=== PATIENT | female | born 1950 | race Caucasian/White ===

== ENCOUNTER → 2016-12-26 | Outpatient (CLI) | payer MEDICARE, OTHER | END | disposition home or self-care (01) | LOC: GMAB 16:48 | PROVIDERS: ATTEND Family Medicine | DX: I10 Essential (primary) hypertension (principal); R30.0 Dysuria ==

== ENCOUNTER → 2016-12-31 | Outpatient (CLI) | payer MEDICARE, OTHER ==
--- NOTE | 2016-12-31 13:43 | MAM ---
History: Well woman exam. Date of exam: 12/31/2016 Services provided: Bilateral full field digital screening mammography. CAD, the images were reviewed with R2 computer aided detection. FINDINGS: Glandular tissue is near completely fatty involuted. No prior study is currently available for review. Technologist indicates images provided are best possible as the patient does have some physical limitation. A 4 to 5 mm nodular asymmetry is present in the left breast approximately 17 cm from the nipple. Mammographically the borders are indistinct but may be secondary to incomplete compression in this pendulous breast. Additional mammographic views would be of benefit although may not be possible given indicated problems. Directed ultrasound is otherwise therefore recommended.. IMPRESSION: Incomplete exam Recommendation: Directed ultrasound left breast 2-3 o'clock sonographically approximately 6 to 8 cm from the nipple. BIRAD CATEGORY: 0 INCOMPLETE Electronically signed by: Dominga Pollard MD 12/31/2016 1:43 PM CDT Workstation: [id number]
== END | disposition home or self-care (01) ==
LOC: MAMMO 10:43
PROVIDERS: ATTEND Family Medicine
DX: Z12.31 Encounter for screening mammogram for malignant neoplasm of breast (principal)

== ENCOUNTER → 2017-04-22 | Outpatient (CLI) | payer MEDICARE, OTHER ==
--- NOTE | 2017-04-22 17:14 | MAM ---
EXAM DESCRIPTION: 3D Diagnostic, Left CLINICAL HISTORY: 66 yearsFemaleABNORMAL MAMMO no complaints. Gentle organ cancer history. Hysterectomy. No HRT. No family history of breast cancer. COMPARISON: 2-D digital screening study 12/31/2016. Targeted left breast ultrasound on this visit. Report from prior examination also reviewed. TECHNIQUE: Left CC , LM, projection full-field images, 3-D tomosynthesis digital mammographic technique. Digital 2-D full-field left MLO image. Also left synthesized CC , and LM full-field images. CAD not utilized. FINDINGS: The breast parenchymal density pattern is: Scattered areas of fibroglandular density. No skin thickening or nipple retraction scattered solitary microcalcifications. Focal asymmetry in the upper outer quadrant of the posterior third of the left breast approximately 200 clock position and approximately 15 cm from the nipple. Approximately 5 cm from the skin surface. No focal, stellate mass or density, , and no suspicious microcalcifications. ULTRASOUND: Scanning in the region of the 200 clock sector of the left breast posterior third 15 cm from the nipple. Homogeneous fatty echotexture. No discrete solid mass or cyst. No parenchymal edema or large calcifications. No abnormal Doppler color flow. Normal vessel flow. IMPRESSION: BI-RADS CATEGORY: 2 - BENIGN FINDINGS. FOLLOW UP: Return to routine digital bilateral screening, December 2017. The findings and the follow-up plan were reviewed in person with the patient after the examination. Written communication explaining the IMPRESSION and follow-up, will be mailed to the patient and referring health care provider. According to the [employer], yearly mammograms are recommended starting at age 40 and continuing as long as a woman is in good health. Any breast change noted on a breast self-exam should be reported promptly to the patient's healthcare provider. Breast MRI is recommended for women with an approximately 20-25% or greater lifetime risk of breast cancer, including women with a strong family history of breast or ovarian cancer and women who have been treated for Hodgkin's disease. A negative mammographic report should not delay tissue diagnosis in patients with significant clinical history or physical findings. Extremely dense breast tissue limits the sensitivity of digital mammography. Electronically signed by: Juan A Fu MD 04/22/2017 5:13 PM CDT
--- NOTE | 2017-04-22 17:14 | US ---
EXAM DESCRIPTION: Breast,Left CLINICAL HISTORY: 66 yearsFemaleABNORMAL MAMMO COMPARISON: Digital 2-D and 3-D tomosynthesis left breast on this visit. 2-D digital screening mammographic examination 12/31/2016. TECHNIQUE: Transcutaneous scanning of the upper outer quadrant of the posterior third of the left breast utilizing two-dimensional and Doppler modes. Scanning performed by the certified travel counselor only. FINDINGS: Scanning in the region of the 200 clock sector of the left breast posterior third 15 cm from the nipple. Homogeneous fatty echotexture. No discrete solid mass or cyst. No parenchymal edema or large calcifications. No abnormal Doppler color flow. Normal vessel flow. IMPRESSION: 1. Bi-Rads Category 2: Benign. 2. Please refer to digital left breast 3-D tomosynthesis and 2-D diagnostic examination and report on this visit. The findings and the follow-up plan were reviewed in person with the patient after the examination. Written communication regarding the impression and follow-up will be mailed to the patient and referring health care provider. Electronically signed by: Juan A Fu MD 04/22/2017 5:13 PM CDT
== END ==
LOC: US 09:00
PROVIDERS: ATTEND Family Medicine
DX: R92.8 Other abnormal and inconclusive findings on diagnostic imaging of breast (principal)
CPT/HCPCS: 76641; G0206; G0279

== ENCOUNTER → 2017-07-31 | Outpatient (CLI) | payer MEDICARE, OTHER | END | disposition home or self-care (01) | LOC: GMAB 17:09 | PROVIDERS: ATTEND Family Medicine | DX: D53.9 Nutritional anemia, unspecified (principal); E53.8 Deficiency of other specified B group vitamins; I10 Essential (primary) hypertension; E55.9 Vitamin D deficiency, unspecified ==

== ENCOUNTER 2017-08-07 13:54 | Inpatient (IN) | payer MEDICARE, OTHER ==
--- NOTE | 2017-08-07 15:36 | ED.PDOC ---
History of Present Illness - General Chief Complaint: Neuro Symptoms/Deficits Stated Complaint: altered mental status Time Seen by Provider: 08/07/17 15:36 Source: family - sister in law Exam Limitations: no limitations - History of Present Illness Initial Comments: Lucia Byrd 67 y/o female brought by EMS after she was found to disoriented on and off the last 2 weeks does not know where she at ,refused to get up from bed,had fallen 3 x the last 2 days.She had visual hallucinations in the past seeing bugs on the floor and depression was placed on seroquel and effexor but recently seroquel was discontinued afte patient becoming more disoriented and also falling ,getting weak. Timing/Duration: waxing and waning, other - 2 weeks Severity: moderate Episode Description: see hpi Improving Factors: nothing Worsening Factors: nothing Associated Symptoms: trouble walking - weak Allergies/Adverse Reactions: Allergies Penicillin G Allergy (Verified 07/25/15 02:19) Home Medications: Ambulatory Orders Aspirin [Baby Aspirin] 81 mg PO QD 06/20/14 Calcium Carbonate-Vitamin D [Calcium 600+D 600-400 mg-Unit] 1 tab PO BID Lisinopril 10 mg PO DAILY 06/20/14 SITagliptin [Januvia] 50 mg PO DAILY 07/25/15 Atorvastatin Calcium [Lipitor] 10 mg PO DAILY 01/08/16 Cetirizine HCl [ZyrTEC] 10 mg PO DAILY 01/08/16 Oxybutynin Chloride 5 mg PO DAILY 01/08/16 Venlafaxine HCl [Effexor Xr] 150 mg PO BID 01/08/16 Alendronate Sodium [Fosamax] 70 mg PO WKLY 08/07/17 Methylcellulose (Laxative) [Citrucel] 500 mg PO DAILY 08/07/17 Nystatin Powder 15 gm TOP BID PRN 08/07/17 Review of Systems - Review of Systems Constitutional: States: weakness EENTM: States: no symptoms reported Respiratory: States: no symptoms reported Cardiology: States: no symptoms reported Gastrointestinal/Abdominal: States: no symptoms reported Genitourinary: States: other - incontinence Musculoskeletal: States: no symptoms reported Skin: States: see HPI Neurological: States: see HPI Endocrine: States: no symptoms reported Past Medical History (General) - Patient Medical History Hx Seizures: No Hx Stroke: No Hx Dementia: No Hx Asthma: No Hx of COPD: No Hx Cardiac Disorders: No Hx Congestive Heart Failure: No Hx Pacemaker: No Hx Hypertension: Yes Hx Thyroid Disease: No Hx Diabetes: Yes Hx Gastroesophageal Reflux: No Hx Renal Disease: No Hx Cancer: Yes - uterine Hx of HIV: No Hx Hepatitis C: No Hx MRSA: Yes - 2016 Face MRSA Source:: Wound Surgical History: cholecystectomy, other - colonoscopy - Vaccination History Hx Tetanus, Diphtheria Vaccination: No Hx Influenza Vaccination: Yes Hx Pneumococcal Vaccination: Yes - Social History Hx Tobacco Use: No Hx Chewing Tobacco Use: No Hx Alcohol Use: No Hx Substance Use: No Hx Substance Use Treatment: No Hx Depression: Yes Hx Physical Abuse: No Hx Emotional Abuse: No Hx Suspected Abuse: No - Activities of Daily Living Grooming Ability: Standby Assistance Eating (Feeding) Ability: Standby Assistance Toileting Ability: Standby Assistance - Female History Patient : No Family Medical History - Family History Mother Name: Harriett Byrd Age (years): 86 Living Status: Still Living Hx Family Asthma: No Hx Family Congestive Heart Failure: No Hx Family Hypertension: Yes - Father Hx Family Stroke: No Hx Cardiac Disease: Yes - Father Hx Family Diabetes: Yes - maternal grandmother and father Hx Family Cancer: Yes - mother colon, pt uterine Hx Family;Other: Azheimers Dementia-mom Physical Exam - Physical Exam General Appearance: Alert, No apparent distress Eye Exam: bilateral normal ENT Exam: normal ENT inspection, hearing grossly normal, pharynx normal Neck: non-tender, full range of motion, supple, normal inspection, trachea midline Respiratory: chest non-tender, lungs clear Cardiovascular/Chest: regular rate, rhythm, no gallop, no murmur Peripheral Pulses: radial,right: 2+, radial,left: 2+ Gastrointestinal/Abdominal: non tender, soft, no organomegaly Back Exam: no CVA tenderness, no vertebral tenderness Extremities Exam: non-tender Mental Status: alert, disoriented x 3 - time,place, 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 Exam: normal hearing, normal speech Motor/Sensory: no motor deficit, no sensory deficit, no pronator drift Skin Exam: other - multiple excoriation skin and grade 2 sacral ulcer Progress - Progress Progress: 08/07/17 17:26 Last Vital Signs Temp 98.0 F 08/07/17 14:05 Pulse 90 08/07/17 16:00 Resp 18 08/07/17 16:00 BP 129/81 08/07/17 16:00 Pulse Ox 97 08/07/17 16:00 - Results/Orders Results/Orders: Laboratory Tests 08/07/17 08/07/17 16:06 17:29 WBC 13.1 H RBC 3.07 L Hgb 9.3 L Hct 28.4 L MCV 92.4 MCH 30.2 MCHC 32.9 L RDW 12.7 Plt Count 326 MPV 9.5 Absolute Neuts (auto) 10.00 H Absolute Lymphs (auto) 1.40 Absolute Monos (auto) 1.20 H Absolute Eos (auto) 0.50 H Absolute Basos (auto) 0.10 Neutrophils % 76.1 Lymphocytes % 10.7 L Monocytes % 8.8 Eosinophils % 3.6 Basophils % 0.8 PT 13.1 H INR 1.160 PTT (SP) 24.7 L Sodium 135 Potassium 3.2 L Chloride 93 L Carbon Dioxide 32 H Anion Gap 13.2 BUN 40 H Creatinine 3.61 H BUN/Creatinine Ratio 11.1 Random Glucose 109 H Serum Osmolality 280.4 Calcium 14.6 H* Magnesium 1.4 L Total Bilirubin 0.6 Direct Bilirubin 0.1 Indirect Bilirubin 0.5 AST 27 ALT 14 Alkaline Phosphatase 60 Creatine Kinase 146 H CK-MB (CK-2) 4.0 CK-MB (CK-2) % 2.74 Troponin I 0.02 Serum Total Protein 7.0 Albumin 3.1 L Urine Color Yellow Urine Appearance Clear Urine pH 6.5 Ur Specific [place] 1.020 Urine Protein Negative Urine Glucose (UA) Negative Urine Ketones Negative Urine Blood Negative Urine Nitrite Negative Urine Bilirubin Negative Urine Urobilinogen 0.2 Ur Leukocyte Esterase Negative Urine RBC 0-1 Urine WBC 3-5 H Ur Epithelial Cells 3-5 Amorphous Sediment 1+ Urine Bacteria Rare Urine Mucus Small - EKG/XRAY/CT EKG: Sinus, Tachy, nonspecific ST T wave Chg Comments: heart rate-100; q wave 2,avf XRAY: chest - no acute abnormalities Departure - Departure Clinical Impression: Hypercalcemia, Altered awareness, transient, Hypomagnesemia, Hypokalemia, History of diabetes mellitus Sacral ulcer Qualifiers: Non-pressure ulcer stage: unspecified non-pressure ulcer stage Qualified Code(s ): L98.429 - Non-pressure chronic ulcer of back with unspecified severity Renal failure (ARF), acute on chronic Qualifiers: Acute renal failure type: unspecified Chronic kidney disease stage: unspecified stage Qualified Code(s): N17.9 - Acute kidney failure, unspecified Anemia Qualifiers: Anemia type: unspecified type Qualified Code(s): D64.9 - Anemia, unspecified Time of Disposition: 18:20 Disposition: Admit Patient Condition: Fair Departure Forms: Patient Portal Self Enrollment Referrals: Bo Cantrell MD [Primary Care Provider] - 1-2 Weeks Home Medications: Ambulatory Orders Aspirin [Baby Aspirin] 81 mg PO QD 06/20/14 Calcium Carbonate-Vitamin D [Calcium 600+D 600-400 mg-Unit] 1 tab PO BID Lisinopril 10 mg PO DAILY 06/20/14 SITagliptin [Januvia] 50 mg PO DAILY 07/25/15 Atorvastatin Calcium [Lipitor] 10 mg PO DAILY 01/08/16 Cetirizine HCl [ZyrTEC] 10 mg PO DAILY 01/08/16 Oxybutynin Chloride 5 mg PO DAILY 01/08/16 Venlafaxine HCl [Effexor Xr] 150 mg PO BID 01/08/16 Alendronate Sodium [Fosamax] 70 mg PO WKLY 08/07/17 Methylcellulose (Laxative) [Citrucel] 500 mg PO DAILY 08/07/17 Nystatin Powder 15 gm TOP BID PRN 08/07/17 Decision To Admit - Decistion To Admit Decision to Admit Reason: Admit from ER - Discuss with Mickey Stewart ANP/ Hospitalist for admit to monitor calcium level and needs ivf hydration Decision to Admit Date: 08/07/17 Decision to Admit Time: 18:17
--- NOTE | 2017-08-07 15:56 | RAD ---
Study: Single Frontal View of the Chest. Indication:ams Comparison: January 08, 2016. Impression: Heart size normal. Left basilar atelectasis. Otherwise, lungs clear. No acute osseous abnormality. Electronically signed by: Silver Moe MD 08/07/2017 3:55 PM RN ED
--- NOTE | 2017-08-07 16:29 | CT ---
Study: CT of the Head. Indication: ams Technique: Axial CT images of the head were acquired without intravenous contrast. This exam was performed according to our departmental dose-optimization program, which includes automated exposure control, adjustment of the mA and/or kV according to patient size and/or use of iterative reconstruction technique. Comparison: None. Findings: No CT evidence of acute ischemia, acute hemorrhage, mass, mass effect, midline shift, or extra-axial fluid collection. Tiny remote right cerebellar infarct. Tiny remote appearing right thalamic lacunar infarct. Ventricles are normal in configuration without hydrocephalus. Patchy hypoattenuation of the periventricular and subcortical white matter noted. This is nonspecific but most consistent with chronic microvascular ischemic change. Global parenchymal volume loss and intracranial atherosclerosis noted as well. Paranasal sinuses are adequately aerated. Mastoid air cells are adequately aerated. Osseous structures and soft tissues are unremarkable. Impression: 1. No CT evidence of acute intracranial abnormality. If high clinical concern for acute ischemia, MRI can be performed. 2. 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 3. Senescent changes. Electronically signed by: Silver Moe MD 08/07/2017 4:28 PM [facility]
[2017-08-07] MEDS ORDERED: SODIUM CHLORIDE 0.9% 1000ML 1,000 ML IVS ONE (16:44)
[2017-08-07] MEDS ORDERED: FUROSEMIDE INJ 20 MG/2 ML VIAL IV ONE (16:47)
[2017-08-07] MEDS ORDERED: KCL 40MEQ/NS 1,000 ML IVS PRN ×2 (18:26→20:04)
[2017-08-07] MEDS ORDERED: MAGNESIUM SULFATE PREMIX 2GM 2 GM in PREMIX BAG 1 BAG IVPB ONE (18:27)
[2017-08-07] MEDS ORDERED: MAGNESIUM SULFATE PREMIX 2GM 50 ML IVPB ONE (19:10)
--- NOTE | 2017-08-07 20:26 | HP ---
SUPERVISING PHYSICIAN: Job Owen MD CHIEF COMPLAINT: Altered mental status. Hypercalcemia. HISTORY OF PRESENT ILLNESS: Ms. Byrd is a 67-year-old, female patient who resides at [facility] and was brought to the Emergency Department via EMS after she was found to have worsening disorientation on and off for the last 2 weeks. Her family member notes she does not remember where she is at times. She has refused to get out of bed and she has fallen well over 3 times in the last couple of days. She has also reported having some visual hallucinations in the last week or so as she has been seeing bugs on the floor and has a history of depression that seems to be worsening and has recently had a medication change in her antidepressant from Seroquel to Effexor as the patient has, again, been showing some disorientation and increasing weakness. The patient is followed in the clinic by Dr. Cantrell. She is currently on doxycycline for some chronic venous stasis dermatitis to her lower extremities as well as a sacral decubitus ulcer. Her laboratory studies today in the Emergency Department showed that she had a severely elevated calcium at 14.6 with an albumin at 3.1. She also had a hypokalemia and low magnesium level along with worsening renal function. CBC showed leukocytosis of 13,100, but no left shift was noted on the differential. Her family member notes that the patient has not been having significant oral intake and has been refusing to go eat or get out of bed most days. Given that she has had a significant change in her calcium level showing to be symptomatic including continued weakness, confusion and multiple falls, Dr. Hale requested the patient be admitted for further treatment and ongoing evaluation for there hypercalcemia. Prior to admission, CT of the head was completed and per radiologic interpretation of noncontrast CT, there is no evidence of acute intracranial abnormality. There was a tiny remote right cerebral and right thalamic infarct suspected with some senescent changes. The patient is now going to be admitted to the Medical/ Surgical Floor for ongoing treatment and evaluation. PAST MEDICAL HISTORY: 1. Hypertension. 2. Hyperlipidemia. 3. Anxiety/depression on Effexor with recent change in medication having been taken off Seroquel. 4. Lumbar radiculopathy. 5. Morbid obesity. 6. Type 2 diabetes on oral therapy. 7. Chronic venous stasis dermatitis, currently on doxycycline. 8. Osteoporosis on Fosamax. PAST SURGICAL HISTORY: 1. Cholecystectomy. 2. Hysterectomy. 3. Dilatation and curettage. 4. Colonoscopy. CURRENT MEDICATIONS: 1. Effexor XR 150 mg daily. 2. Doxycycline 100 mg q.12h. 3. Januvia 50 mg daily. 4. Oxybutynin chloride 5 mg daily. 5. Nystatin powder 15 gram topical b.i.d. as needed. 6. Citrucel laxative 500 mg daily. 7. Lisinopril 10 mg daily. 8. Zyrtec 10 mg daily. 9. Calcium supplement 600 Plus D 600/400 unit 1 tablet b.i.d. 10. Lipitor 10 mg daily. 11. Baby aspirin 81 mg daily. 12. Fosamax 70 mg weekly. ALLERGIES: PENICILLIN G. FAMILY HISTORY: Father is decreased of unknown cause. Mother had colon cancer. SOCIAL HISTORY: The patient is single and lives at [facility]. She has no history of cigarette smoking and drinks alcohol very frequently, typically on a social basis, beer or hard liquor. REVIEW OF SYSTEMS: CONSTITUTIONAL: Positive weakness. No reported fever or chills. General malaise. HEENT: Denies vision change although she does report some hallucinations visually. No reported earaches, sore throat, nasal congestion. RESPIRATORY: No shortness of breath, cough. CARDIOVASCULAR: No reported chest pain or palpitations. No syncopal episodes. GASTROINTESTINAL: Denies nausea or vomiting, diarrhea or constipation. GENITOURINARY: She is incontinent, but denies dysuria, hematuria or other urinary symptoms. MUSCULOSKELETAL: As noted in history of present illness, multiple falls and ongoing weakness. INTEGUMENTARY: As noted in history of present illness, multiple stasis ulcers of lower extremities with a sacral decubitus ulcer currently on treatment with doxycycline. NEUROLOGIC: As noted in history of present illness, worsening confusion, depression. No reported localizing or focalizing weakness. PHYSICAL EXAMINATION: VITAL SIGNS: Temperature 97.1. Pulse 89. Blood pressure 130/72. Respirations 16. Saturation 98% on room air. Admission weight 86.7 kg. GENERAL: On admission to the Medical/Surgical Floor, the patients appear comfortable and in no acute distress. She is well-nourished. She does appear dehydrated. She is alert. HEENT: Tympanic membranes clear bilaterally. Oropharynx is pink, mucous membranes dry. There are no lesions. NECK: Supple, nontender with full range of motion. No jugular venous distention noted. CHEST: Lungs clear to auscultation bilaterally without any rhonchi, wheezes, or rales. CARDIOVASCULAR: Regular rate and rhythm without any appreciable murmurs, gallops, or rubs. ABDOMEN: Soft, obese, nontender. Positive bowel sounds. EXTREMITIES: There is no cyanosis, clubbing or edema. There are multiple areas of excoriation at various stages of healing to both lower extremities. NEUROLOGIC: The patient is alert to self, disoriented to time and place and has a very flat affect. Cranial nerves II-XII are grossly intact as assessed. Facial features are symmetrical. Extraocular movements are within normal limits. There were no notable motor deficits, sensory deficits or any pronator drift. There is no nystagmus noted. INTEGUMENTARY: Multiple excoriations to the lower extremities in various healing stages with a grade 2 sacral ulcer. LABORATORY: CBC shows leukocytosis of 13,100, hemoglobin 9.3, hematocrit 20.4, platelet count 326,000, differential does not a current left shift. Coagulation studies showed PT 13.1, PT-T 24.7. Chemistries showed normal sodium at 135, potassium low at 3.2, carbon dioxide elevated at 32, BUN 40, creatinine 3.61, liver functions all within normal limits. Glucose 109, serum osmolality 280, calcium elevated at 14.6, albumin 3.1, alkaline phosphatase normal. CPK elevated at 146. Troponin normal at 0.02. Review of previous labs on 07/31/17 showed an iron study with a low iron of 224 with TIBC normal and iron saturation low with normal ferritin. Vitamin B12 was greater than 1500. Vitamin D total and D2, D3 were all within normal limits. Serum folate was greater than 23.4, TSH normal at 1.21 MICROBIOLOGY: MRSA surveillance culture is pending. Urine culture, straight cath, is pending. RADIOLOGY: On admission to the Emergency Department, she had a chest x-ray and per radiologic interpretation of a single view chest, heart size was normal. There was some left basilar atelectasis. Otherwise, lungs clear. No osseous abnormalities were noted. She also had a CT without contrast and per radiologic interpretation, there was no CT evidence of acute intracranial abnormality. There was note of a tiny remote right cerebral and right thalamic infarct suspected with senescent changes. ASSESSMENT: 1. Hypercalcemia, likely secondary to dehydration. 2. Dehydration secondary to poor oral intake. 3. Acute kidney failure secondary to prerenal azotemia from dehydration. 4. Leukocytosis with a sacral decubitus ulcer and possible demargination and exacerbation from hemoconcentration from dehydration. 5. Increasing muscle weakness secondary to hypercalcemia. 6. Multiple same level falls secondary to hypercalcemia and ongoing weakness. 7. Acute mental status change with increasing confusion secondary to hypercalcemia. 8. Electrolyte imbalance with hypokalemia and hypomagnesemia, likely related to worsened renal function. 9. Chronic venous stasis dermatitis to both lower legs, currently no doxycycline. 10. Stage 2 sacral decubitus ulcer. 11. Hyperlipidemia. 12. Hypertension on lisinopril. 13. Anxiety and depression on Effexor having recently been changed from Seroquel. 14. Lumbar radiculopathy. 15. Morbid obesity. 16. Type 2 diabetes on oral therapy. PLAN: The patient will be admitted to the Medical/Surgical Floor for ongoing treatment of immediate concerns for hypercalcemia. I did talk to Dr. Medina in regard to treatment of the hypercalcemia. He feels most likely it is related to severe dehydration. We have given her a liter bolus of saline and this will be continued with normal saline with 40 of potassium that will run at 125 an hour. I have ordered a Parada catheter to closely monitor her I&Os with the aggressive approach to fluid maintenance in efforts to correct the underlying hypercalcemia. In regard to the hypokalemia and hypomagnesemia, we will replace both with IV initially and repeat laboratory studies in the morning. She continues to be on doxycycline for recent treatment for the stasis dermatitis and sacral ulcer. We will closely monitor this and continue with doxycycline as previous to hospitalization. She will be on DVT prophylaxis as per protocol. She will be on insulin sliding scale per protocol. We will order a physical therapy consultation in regard to her multiple falls and ongoing weakness. We will resume her home medications as appropriate once they have been updated and verified. At this point, we will hold off on lisinopril given her renal function as well as the Fosamax. Given the findings on CT with questionable infarcts involving the right cerebral and thalamic regions, we will at some point consider MRI, but certainly at this point addressing the calcium is more appropriate and treatment plan certainly will not change with findings of MRI. This can be done in the outpatient setting with continued followup. We will plan to repeat labs in the morning. If her calcium remains elevated, I will order some additional laboratory studies including parathyroid hormone evaluation along with further treatment as needed with possible more aggressive management of the calcium levels with some Reclast and Calcitonin if available. I have cultured her urine as well and we will await those culture results, but hold off on additional antibiotics at this point because there is no evidence of a significant urinary tract infection. We will anticipate her length of stay to be at least 2 to 3 days until clinically improved and stable. Until then, we will continue to monitor the patient closely and treat appropriately. In regard to discharge planning, based on what she does clinically and with physical therapy, anticipate hopefully discharging back to [facility], but until that point, we will continue to closely monitor and treat appropriately. #[id number] [facility]
[2017-08-07] MEDS ORDERED: DEXTROSE 50% 25 GM/50 ML SYG IV PRN (20:44)
[2017-08-07] MEDS ORDERED: SODIUM CHLORIDE 0.9% (FLUSH) 10 ML SYG IV PRN (20:44)
[2017-08-07] MEDS ORDERED: ONDANSETRON INJ 4 MG/2 ML VIAL IV PRN (20:44)
[2017-08-07] MEDS ORDERED: GLUCAGON INJ 1 MG VIAL SUBCU PRN (20:44)
[2017-08-07] MEDS ORDERED: ACETAMINOPHEN 325 MG TAB PO PRN (20:44)
[2017-08-07] MEDS ORDERED: NYSTATIN POWDER 15GM BTTL TOP PRN (20:49)
--- NOTE | 2017-08-07 20:59 | PCM.CORE ---
Physician DVT/VTE - Nurse DVT Assessment & Total Each Risk Factor Represents 2 Points: Age 60-74, Malignancy (present/past) Each Risk Factor is 1 Point: Obesity (BMI >25) DVT Assessment Score: 5 - 5 or more Very High Risk Treatments: Early Ambulation *, Sequential Compression Device Pharmacological: Enoxaparin 40mg SQ Daily
[2017-08-07] MEDS ORDERED: VENLAFAXINE XR 75 MG CAP PO SCH (21:00)
[2017-08-07] MEDS ORDERED: VENLAFAXINE XR 75 MG CAP ONE (21:35)
[2017-08-07] MEDS: KCL 40MEQ/NS 1,000 ML IVS PRN (21:41)
[2017-08-07] MEDS: ASPIRIN (CHEWABLE) 81 MG TAB PO SCH (21:45)
[2017-08-07] MEDS: DOXYCYCLINE HYCLATE CAP 100 MG CAP PO SCH (21:46)
[2017-08-07] MEDS: INSULIN LISPRO 100 UNITS/ML PEN SUBCU SCH (21:46)
[2017-08-07] MEDS: IV SET AND CAP CHANGE INJ INJ SCH (21:46)
[2017-08-07] MEDS ORDERED: ENOXAPARIN SODIUM 30 MG/0.3 ML SYG SUBCU SCH (22:00)
[2017-08-07] MEDS ORDERED: DOXYCYCLINE HYCLATE CAP 100 MG CAP PO SCH (22:30)
[2017-08-08] MEDS: KCL 40MEQ/NS 1,000 ML IVS PRN ×3 (05:27→23:16)
[2017-08-08] MEDS: INSULIN LISPRO 100 UNITS/ML PEN SUBCU SCH ×4 (07:43→21:31)
[2017-08-08] MEDS: VENLAFAXINE XR 75 MG CAP PO SCH (07:49)
[2017-08-08] MEDS: DOXYCYCLINE HYCLATE CAP 100 MG CAP PO SCH ×2 (08:54→20:49)
[2017-08-08] MEDS: ATORVASTATIN 10 MG TAB PO SCH (08:54)
[2017-08-08] MEDS: OXYBUTYNIN CL 5 MG TAB PO SCH (08:55)
[2017-08-08] MEDS: ASPIRIN (CHEWABLE) 81 MG TAB PO SCH (08:55)
[2017-08-08] MEDS: CETIRIZINE HCL 10 MG TAB PO SCH (08:55)
[2017-08-08] MEDS ORDERED: MAGNESIUM SULFATE PREMIX 2GM 2 GM in PREMIX BAG 1 BAG IVPB ONE (08:57)
[2017-08-08] MEDS ORDERED: MAGNESIUM SULFATE PREMIX 2GM 50 ML IVPB ONE (10:03)
--- NOTE | 2017-08-08 14:39 | US ---
EXAM DESCRIPTION: Carotid Duplex: ULTRASOUND. CLINICAL HISTORY: multiple falls COMPARISON: CT scan of the head 08/07/2016. TECHNIQUE: Transcutaneous scanning utilizing 2-dimensional and Doppler modes to evaluate the bilateral carotid systems and vertebral arteries. Percentage of diameter of stenosis or no stenosis recorded will be based upon NASCET criteria. FINDINGS: Peak systolic/end diastolic (CM-Sec) CCA Right 50/15 Left 41/13. ICA Right proximal 28/7, distal 47/16. Left proximal 31/8, Distal 35/12. Vertebral Right 26/0 Left 32/12. ECA (PS Only) Right 71 left 54. ICA/CCA peak systolic ratio: Right 0.9 Left 0.9 ICA/CCA end diastolic ratio: Right 1.0 Left 0.9 Vertebral arteries: antegrade flow. Comments: Largest segment of area stenosis was in the left proximal ICA at 31%. Diameter stenosis at this segment was 42%. IMPRESSION: 1. Doppler evaluation of the bilateral carotid systems and vertebral arteries shows no hemodynamically significant stenoses. 2. No significant amount of plaque seen in the carotid arteries bilaterally. Bilateral vertebral arteries showed antegrade-cephalad flow. Electronically signed by: Juan A Fu MD 08/08/2017 2:38 PM [employer]
[2017-08-08] MEDS ORDERED: SODIUM CHL 0.9% 50ML MIN-BAG+ 50 ML IVPB ONE (20:03)
[2017-08-08] MEDS ORDERED: cefTRIAXone SODIUM 1 GM VIAL ONE (20:03)
[2017-08-08] MEDS: cefTRIAXone SODIUM 1 GM in SODIUM CHL 0.9% 50ML MIN-BAG+ 50 ML IVPB SCH (20:12)
[2017-08-08] MEDS: ENOXAPARIN SODIUM 30 MG/0.3 ML SYG SUBCU SCH (20:49)
--- NOTE | 2017-08-08 21:27 | PN ---
DATE: 08/08/17 SUPERVISING PHYSICIAN: Job Owen M.D. SUBJECTIVE: The patient is resting in bed eating breakfast. She had a Parada catheter placed last night without any complications. She has had no nausea or vomiting. She has been afebrile. OBJECTIVE: VITAL SIGNS: Temperature 98.3, pulse 72, blood pressure 146/70, respirations 18, satting 98% on room air. I's and O's show a positive balance of 1326 with 2151 in, 825 out. Weight is 86.5 kg. CHEST: Lungs are clear to auscultation bilaterally. HEART: Regular rate and rhythm. ABDOMEN: Obese but soft, non-tender. Positive bowel sounds. EXTREMITIES: No clubbing, cyanosis or edema. NEUROLOGIC: She is a little more oriented today. She still has very poor short term memory. Cannot recall her location even after being told multiple times and asked several minutes later, but there is no notable focalizing neuromotor deficits. INTEGUMENT: She has a decubitus stage 2 on her coccyx area and sacral region. LABORATORY: CBC shows slight improvement in her white count, it is down to 11, 000, hemoglobin 9, hematocrit 27.3, platelet count 275,000. Differential shows to be without a left shift. Chemistries show normal electrolytes today with potassium 3.6, BUN has continued to be elevated at 37, it has improved though from 40, creatinine has shown elevation from 3.61 to 3.67. Glucose 93, calcium is down slightly to 13.1 with magnesium of 1.7. Albumin is 2.8. Parathyroid hormone is pending. MICROBIOLOGY: Two urine cultures are pending. MRSA surveillance culture is pending. RADIOLOGY: Carotid artery studies are pending. ASSESSMENT: 1. Hypercalcemia felt to be secondary to dehydration although showing slow improvement with IV fluids with the patient showing an acute kidney injury. 2. Dehydration secondary to poor oral intake. 3. Acute kidney failure with possible prerenal azotemia from dehydration but showing slow improvement with IV fluids. 4. Leukocytosis with a sacral decubitus ulcer with some exacerbation from hemoconcentration from dehydration showing slight improvement after initiation of fluids with the patient remaining afebrile. 5. Increasing muscle weakness felt to be secondary to hypercalcemia. 6. Multiple same level falls secondary to hypercalcemia and ongoing weakness. 7. Acute mental status change with initial increasing confusion secondary to hypercalcemia showing some slight improvement according to the patient's [id number] after initiation of IV fluids. 8. Electrolyte imbalance with hypokalemia and hypomagnesemia related to worsening renal function showing slight improvement with IV fluids and replacement. 9. Chronic venous stasis dermatitis to both lower extremities, currently on doxycycline. 10. Stage 2 sacral decubitus ulcer on doxycycline. 11. Hyperlipidemia. 12. Hypertension on lisinopril. 13. Anxiety and depression on Effexor having recently been changed from Seroquel. 14. Lumbar radiculopathy. 15. Morbid obesity. 16. Type 2 diabetes mellitus on oral therapy. 17. Acute cystitis with urine culture pending. PLAN: Will continue with current plan of care at this point with continued IV fluids. She got a bolus of saline and will continue with maintenance fluids at 125 and 150 an hour, closely monitoring her urine output. Given that a second urinary culture was concerning for a urinary tract infection on a catheterized urine, will go ahead and start her on some Rocephin and await final culture results. Family and the patient have discussed DNR status and she is working on signing those papers. Will need to monitor her decubitus on the sacral area closely. She is to finish up doxycycline tomorrow and may need to be continued on antibiotics to include vancomycin if renal function allows. I did touch base again with Dr. Medina on admission. Will probably need to touch base tomorrow if the renal function fails to show significant improvement as well as persistent hypercalcemia despite more aggressive fluid replacement. We do not carry other medications other than Reclast for possible administration of medications to assist with reversing the hypercalcemia. Will continue to monitor the patient closely and anticipate discharge once the patient is clinically stable. Will repeat labs in the morning. Until then, continue to monitor and treat appropriately. #[id number] [facility]
[2017-08-09] MEDS: INSULIN LISPRO 100 UNITS/ML PEN SUBCU SCH ×4 (08:06→21:05)
[2017-08-09] MEDS ORDERED: SODIUM CHL 0.9% 50ML MIN-BAG+ 50 ML IVPB ONE ×2 (08:06→20:38)
[2017-08-09] MEDS ORDERED: cefTRIAXone SODIUM 1 GM VIAL ONE ×2 (08:07→20:39)
[2017-08-09] MEDS: VENLAFAXINE XR 75 MG CAP PO SCH (08:12)
[2017-08-09] MEDS: cefTRIAXone SODIUM 1 GM in SODIUM CHL 0.9% 50ML MIN-BAG+ 50 ML IVPB SCH ×2 (08:12→20:00)
[2017-08-09] MEDS ORDERED: MAGNESIUM SULFATE PREMIX 4GM 4 GM in PREMIX BAG 1 BAG IVPB ONE (09:12)
[2017-08-09] MEDS: CETIRIZINE HCL 10 MG TAB PO SCH (09:57)
[2017-08-09] MEDS: DOXYCYCLINE HYCLATE CAP 100 MG CAP PO SCH ×2 (09:58→21:00)
[2017-08-09] MEDS: ATORVASTATIN 10 MG TAB PO SCH (09:58)
[2017-08-09] MEDS: ASPIRIN (CHEWABLE) 81 MG TAB PO SCH (09:58)
[2017-08-09] MEDS: OXYBUTYNIN CL 5 MG TAB PO SCH (09:58)
[2017-08-09] MEDS ORDERED: MAGNESIUM SULFATE PREMIX 4GM 50 ML IVPB ONE (12:30)
--- NOTE | 2017-08-09 13:24 | PN ---
DATE: 08/09/17 SUPERVISING PHYSICIAN: Job Owen M.D. SUBJECTIVE: The patient is sitting up on the side of her bed. She has just had her bath. She denies any shortness of breath, chest pain, nausea, vomiting or diarrhea. She does continue to complain that she feels like she cannot move very well and has a difficult time ambulating. OBJECTIVE: VITAL SIGNS: Temperature 98.7, pulse rate 80, blood pressure 129/78 , respiratory rate 16, O2 sat is 96% on room air. RESPIRATORY: Essentially clear to auscultation bilaterally. CARDIAC: Regular rate and rhythm. ABDOMEN: Soft, nondistended, non-tender. Bowel sounds are positive. EXTREMITIES: There is a trace of pedal edema bilaterally but very mild. Bilateral pedal pulses are palpable at +1. SKIN: She has skin breakdown on her bilateral coccyx areas. They are on each side. They are approximately 8 cm in diameter. There are some open areas and they are very ecchymotic with some mild drainage. There is no tunneling noted but the tissue in the center is very hardened. NEUROLOGIC: She is awake. She is alert. She is oriented to person only but reorients fairly easily then realizes she is in the hospital. She is not oriented to date. LABORATORY: White count has normalized to 9.8 with hemoglobin of 8.2 and hematocrit 24.3. Electrolytes are basically within normal limits with the exception of her magnesium is 1.4. BUN is 38, creatinine 3.43. Her baseline creatinine is about 1.6 but it is slightly improved since admission. Calcium is 10.9. Blood sugars have run between 87 and 120. Preliminary urine culture shows no growth after 24 hours. RADIOLOGY: Carotid ultrasound per radiology interpretation shows Doppler evaluation of the bilateral carotid systems and vertebral arteries show no hemodynamically significant stenosis. No significant amount of plaque seen in the carotid arteries bilaterally. Bilateral vertebral arteries show antegrade cephalad flow. All other labs and films have been reviewed via the EMR. ASSESSMENT: 1. Hypercalcemia felt to be secondary to dehydration although showing slow improvement with IV fluids with the patient showing an acute kidney injury. 2. Dehydration secondary to poor oral intake that is improving. 3. Acute kidney failure with possible prerenal azotemia from dehydration but showing slow improvement with IV fluids. 4. Leukocytosis that has improved. 5. Sacral decubitus ulcer. 6. Increasing muscle weakness felt to be secondary to hypercalcemia that is slightly improved. 7. Multiple same level falls secondary to electrolyte imbalance and ongoing weakness. 8. 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 9. Hypomagnesemia. 10. Chronic venous stasis dermatitis to both lower extremities, just finishing doxycycline. 11. Stage 2 sacral decubitus ulcer on doxycycline. 12. Hyperlipidemia. 13. Hypertension on lisinopril. 14. Anxiety and depression on Effexor recently being changed from Seroquel. 15. Lumbar radiculopathy. 16. Morbid obesity. 17. Type 2 diabetes mellitus on oral therapy. 18. Acute cystitis with preliminary urine culture showing no growth. PLAN: We will continue with present supportive care. I have given her 4 grams of magnesium and will recheck her labs tomorrow. I have ordered wound care for her sacral ulcer. We will continue with her Parada catheter due to her wound care and trying to keep that area dry. She has made herself a DNR today and hopefully she can be discharged to [facility] tomorrow. There was some question that she was to go to their memory unit and we will followup with [facility] to find out what we need to do about sending her to that unit. It would be advisable for her to followup with a superintendent greens at some point as well as to get some wound care, but I am not sure that the patient would be agreeable to that, but we will talk to the family. Otherwise we will continue to follow her closely and followup as needed. Dr. Owen is the collaborating physician available for consultation. #[id number] [facility]
[2017-08-09] MEDS: KCL 40MEQ/NS 1,000 ML IVS PRN (17:56)
[2017-08-09] MEDS: ENOXAPARIN SODIUM 30 MG/0.3 ML SYG SUBCU SCH (21:03)
[2017-08-09] MEDS: QUEtiapine FUMARATE 25 MG TAB PO SCH (21:18)
[2017-08-10] MEDS: KCL 40MEQ/NS 1,000 ML IVS PRN (02:21)
[2017-08-10] MEDS ORDERED: SODIUM CHL 0.9% 50ML MIN-BAG+ 50 ML IVPB ONE ×2 (07:38→19:48)
[2017-08-10] MEDS ORDERED: cefTRIAXone SODIUM 1 GM VIAL ONE ×2 (07:38→19:48)
[2017-08-10] MEDS: INSULIN LISPRO 100 UNITS/ML PEN SUBCU SCH ×4 (07:51→22:04)
[2017-08-10] MEDS: VENLAFAXINE XR 75 MG CAP PO SCH (07:51)
[2017-08-10] MEDS: cefTRIAXone SODIUM 1 GM in SODIUM CHL 0.9% 50ML MIN-BAG+ 50 ML IVPB SCH ×2 (07:51→19:58)
[2017-08-10] MEDS: CETIRIZINE HCL 10 MG TAB PO SCH (09:57)
[2017-08-10] MEDS: OXYBUTYNIN CL 5 MG TAB PO SCH (09:57)
[2017-08-10] MEDS: ATORVASTATIN 10 MG TAB PO SCH (09:57)
[2017-08-10] MEDS: ASPIRIN (CHEWABLE) 81 MG TAB PO SCH (09:57)
--- NOTE | 2017-08-10 13:31 | PN ---
DATE: 08/10/17 SUPERVISING PHYSICIAN: Job Owen M.D. SUBJECTIVE: The patient is lying in bed asleep. She awakens easily. She has no complaints of shortness of breath, nausea, vomiting or diarrhea. Continues to have difficulty getting out of bed and performing ADLs. She is concerned about her being able to take care of herself after discharge. I explained that we were trying to find the appropriate facility for her to be discharged to help her with her daily activities. OBJECTIVE: VITAL SIGNS: She is afebrile, heart rate 80, blood pressure 149/82, respiratory rate 16, O2 sat is 99% on room air. RESPIRATORY: Essentially clear to auscultation bilaterally. CARDIAC: Regular rate and rhythm. ABDOMEN: Soft, nondistended, non-tender. Bowel sounds are positive. EXTREMITIES: No cyanosis , clubbing or edema. NEUROLOGIC: She is awake and alert, oriented to person and place only. LABORATORY: WBCs are 9.8 with hemoglobin that has dropped to 8.1 from 8.2 yesterday, hematocrit is 24.5. Blood sugars have run between 90 and 132. Electrolytes are basically within normal limits with the exception of her BUN is 34 and creatinine has slightly improved to 3.2. Calcium is 9.3. Final urine culture shows no growth after 48 hours. ASSESSMENT: 1. Hypercalcemia felt to be secondary to dehydration that naranjo now normalized with IV fluids. 2. Dehydration secondary to poor oral intake that has improved. 3. Acute kidney failure with possible prerenal azotemia from dehydration but improved slowly with IV fluids. Her baseline creatinine is about 1.6. 4. Anemia of unknown etiology. 5. Leukocytosis that has now normalized. 6. Sacral decubitus ulcer. 7. Increasing muscle weakness felt to be secondary to hypercalcemia but may be due to chronic disease state as well. 8. Multiple same level falls secondary to electrolyte imbalance and ongoing weakness. 9. Acute mental status change with initial increasing confusion that has now normalized to the patient's baseline. 10. Hypomagnesemia that has improved. 11. Chronic venous stasis dermatitis to both lower extremities. She recently finished doxycycline. 12. Hyperlipidemia. 13. Hypertension. 14. Anxiety and depression. on Effexor recently being changed from Seroquel. 15. Lumbar radiculopathy. 16. Morbid obesity. 17. Type 2 diabetes mellitus on oral therapy. 18. Acute cystitis with final urine culture showing no growth. PLAN: We will continue with present supportive care. I will monitor her H&H as it has slowly decreased during her hospital stay, may be due to hemodilution but her IV fluids are stopped now and we will recheck her H&H in the morning. Her calcium is now within normal limits but her creatinine is still relatively elevated at 3.2 with a normal baseline of 1.6. I will also guaiac her stools. If her hemoglobin is lower in the morning, she may benefit from some blood transfusion. I have also consulted Health Care Marketing Specialist. She is not safe to go back to [facility] and will need a half-way care facility. The family is actually checking with the insurance and [place] on that and we will need Health Care Marketing Specialist to followup on that tomorrow. I did not do an anemia workup today as we will see what her H&H is tomorrow. If it continues to drop, she will need an anemia workup. Otherwise we will continue to monitor the patient closely and follow as needed. Dr. Owen is the collaborating physician available for consultation. #[id number] [facility]
[2017-08-10] MEDS: ENOXAPARIN SODIUM 30 MG/0.3 ML SYG SUBCU SCH (20:47)
[2017-08-10] MEDS: QUEtiapine FUMARATE 25 MG TAB PO SCH (20:47)
[2017-08-10] MEDS: IV SET AND CAP CHANGE INJ INJ SCH (22:04)
[2017-08-11] MEDS: INSULIN LISPRO 100 UNITS/ML PEN SUBCU SCH ×4 (07:42→20:57)
[2017-08-11] MEDS ORDERED: SODIUM CHL 0.9% 50ML MIN-BAG+ 50 ML IVPB ONE (07:45)
[2017-08-11] MEDS ORDERED: cefTRIAXone SODIUM 1 GM VIAL ONE (07:45)
[2017-08-11] MEDS: VENLAFAXINE XR 75 MG CAP PO SCH (08:04)
[2017-08-11] MEDS: cefTRIAXone SODIUM 1 GM in SODIUM CHL 0.9% 50ML MIN-BAG+ 50 ML IVPB SCH (08:04)
[2017-08-11] MEDS: CETIRIZINE HCL 10 MG TAB PO SCH (08:04)
[2017-08-11] MEDS: ATORVASTATIN 10 MG TAB PO SCH (08:04)
[2017-08-11] MEDS: OXYBUTYNIN CL 5 MG TAB PO SCH (08:04)
[2017-08-11] MEDS: ASPIRIN (CHEWABLE) 81 MG TAB PO SCH (08:04)
--- NOTE | 2017-08-11 17:45 | PN ---
DATE: 08/11/17 SUPERVISING PHYSICIAN: Jerad Olson M.D. SUBJECTIVE: The patient has actually been up with Physical Therapy and walked in the room and did fairly well. Her mentation is back to baseline. She has no other complaints. We are awaiting the final decision from [facility] tomorrow as far as returning back to [facility]. OBJECTIVE: VITAL SIGNS: She remains afebrile, temperature 96.6, pulse 77, blood pressure 130/82, respirations 16, satting 97% on room air. I's and O's show a negative balance of 160 with 2190 in, 2350 out. Weight is 92.1 kg. CHEST: Lungs are clear to auscultation bilaterally. HEART: Regular rate and rhythm. ABDOMEN: Obese but soft, non-tender with positive bowel sounds. EXTREMITIES: No clubbing, cyanosis or edema. NEUROLOGIC: She was alert and oriented to person and place only and shows no motor deficits, just overall weakness. LABORATORY: CBC shows white count 9,200, hemoglobin is stable at 8.6 and 25.4, platelet count 210,000. Differential shows to be without a left shift. Chemistries today show normal electrolytes with potassium 4.3, BUN 33, creatinine is down to 2.9, calcium 8.7, magnesium 1.8. Glucose has been 99 to 114. RADIOLOGY: There are no radiographic studies for review. ASSESSMENT: 1. Hypercalcemia secondary to dehydration and worsening renal function showing improvement with IV fluids, now normalized. 2. Dehydration secondary to poor oral intake, improved with IV fluids. 3. Acute kidney failure with prerenal azotemia from dehydration showing slow improvement with IV fluids with a baseline creatinine noted to be about 1.6. 4. Anemia of unknown etiology, but stable. 5. Leukocytosis that has now normalized. 6. Sacral decubitus ulcer. 7. Increasing muscle weakness felt to be secondary to hypercalcemia showing improvement today, also felt to be contributed to chronic disease state requiring ongoing physical therapy. 8. Multiple same level falls secondary to electrolyte imbalance, including hyperkalemia and exacerbated by ongoing weakness. 9. Acute mental status change with some confusion that has now normalized to the patient's baseline secondary to her hypercalcemic state. 10. Hypomagnesemia improved with IV replacement. 11. Chronic venous stasis dermatitis to both lower extremities having recently finished a course of doxycycline. 12. Hyperlipidemia. 13. Hypertension. 14. Anxiety and depression on Effexor having been recently changed from Seroquel. 15. Lumbar radiculopathy. 16. Morbid obesity. 17. Type 2 diabetes mellitus on oral therapy and stable. 18. Acute cystitis with final urine culture showing no growth. PLAN: Will continue with physical therapy as she is showing to be stable and back to her baseline status. Anticipate discharging tomorrow to [facility] once [facility] has additional time to reassess the patient in the morning. Should they refuse the patient, the next step would be to go to [facility]. Will plan to monitor the patient closely but her labs have stabilized, therefore will not plan to repeat any labs in the morning. She will need close followup on her anemia once discharged which certainly could be done through Dr. Cantrell's office. Until discharge, will continue to monitor and treat appropriately. #[id number] [facility]
[2017-08-11] MEDS: ENOXAPARIN SODIUM 30 MG/0.3 ML SYG SUBCU SCH (20:51)
[2017-08-11] MEDS: QUEtiapine FUMARATE 25 MG TAB PO SCH (20:51)
[2017-08-12] MEDS: INSULIN LISPRO 100 UNITS/ML PEN SUBCU SCH ×2 (07:40→11:30)
[2017-08-12] MEDS: VENLAFAXINE XR 75 MG CAP PO SCH (08:30)
[2017-08-12] MEDS: ASPIRIN (CHEWABLE) 81 MG TAB PO SCH (08:56)
[2017-08-12] MEDS: ATORVASTATIN 10 MG TAB PO SCH (08:56)
[2017-08-12] MEDS: CETIRIZINE HCL 10 MG TAB PO SCH (08:56)
[2017-08-12] MEDS: OXYBUTYNIN CL 5 MG TAB PO SCH (08:56)
[2017-08-12 12:38] VITALS: BP 121/78; TEMP 96.8; O2SAT 95
[2017-08-12] MEDS ORDERED: FERROUS GLUCONATE 325 MG TAB PO SCH (17:00)
--- NOTE | 2017-08-13 11:51 | DS ---
SUPERVISING PHYSICIAN: Jerad Olson MD DISCHARGE DIAGNOSIS: 1. Hypercalcemia on admission secondary to dehydration and worsening renal function, showing improvement with IV fluids with calcium level normalized prior to discharge. 2. Dehydration secondary to poor oral intake, improved with IV fluids. 3. Acute kidney failure with prerenal azotemia from dehydration with slow improvement with IV fluids with the patient returning close to her baseline creatinine, which is noted to be about 1.6. 4. Anemia, iron deficiency as noted on iron studies, stable, started on Fergon at discharge. 5. Leukocytosis, now normalized, uncertain etiology although possibly secondary to hemoconcentration and underlying sacral decubitus ulcers. 6. Sacral decubitus ulcers, having been treated with doxycycline and showing some improvement prior to discharge. 7. Increasing muscle weakness secondary to hypercalcemia, with improvement felt to have been contributed to chronic disease state and underlying anemia, requiring physical therapy, showing return to near baseline discharge prior to discharge. 8. Multiple same level falls secondary to electrolyte imbalance, including hypercalcemia which was exacerbated by ongoing weakness. 9. Acute mental status change with some confusion, now normalized with the patient returning baseline status, felt to be secondary to hypercalcemic state. 10. Hypomagnesemia, improved with IV replacement. 11. Chronic venous stasis dermatitis to both lower extremities having recently finished a course of doxycycline. 12. Hyperlipidemia. 13. Hypertension. 14. Anxiety and depression on Effexor having been also transitioned to a lower dose of Seroquel. 15. Lumbar radiculopathy. 16. Morbid obesity. 17. Type 2 diabetes mellitus on oral therapy and stable. 18. Acute cystitis, although urine culture showed no growth with the patient having been on a course of antibiotics for 3 days or more, showing improvement. REASON FOR HOSPITALIZATION: Ms. Byrd is a 67-year-old, female patient who resides at [facility] and was brought to the Emergency Department via EMS after she was found to have worsening disorientation on and off for the last several weeks. Her family member noted she does not remember where she is at times. She has refused to get out of bed and she has fallen well over 3 times in the last couple of days prior to admission. She had also reported having some visual hallucinations in the last week or so as she has been seeing bugs on the floor and has a history of depression that seems to be worsening and has recently had a medication change in her antidepressant from Seroquel to Effexor as the patient has, again, been showing some disorientation and increasing weakness. The patient is followed in the clinic by Dr. Cantrell. She is currently on doxycycline on admission for some chronic venous stasis dermatitis to her lower extremities as well as a sacral decubitus ulcer. Initial laboratory studies showed that she had an elevated calcium at 14.6 with an albumin at 3.1 and a hypokalemia and low magnesium level along with worsening renal function. CBC showed leukocytosis of 13,100, but no left shift was noted on the differential. Her family member noted that the patient had not been having significant oral intake and had been refusing to go eat or get out of bed most days. Given that she has had a significant change in her calcium level showing to be symptomatic including continued weakness, confusion and multiple falls, Dr. Hale requested the patient be admitted for further treatment and ongoing evaluation for the hypercalcemia. Prior to admission, CT of the head was completed and per radiologic interpretation of noncontrast CT, there was no evidence of acute intracranial abnormality. There was a tiny remote right cerebral and right thalamic infarct suspected with some senescent changes. The patient was admitted to the Medical/Surgical Floor for further treatment and evaluation. LABORATORY: CBC on admission showed a white count of 13,100 and prior to discharge had gone down to 9,200. Hemoglobin and hematocrit have shown to be anemic initially at 9.3 and 28.4. They stabilized at 8.6 and 25.4. Platelet count was at 210,000. Differential did show a left shift initially, but this resolved prior to discharge. Coagulation studies showed PT of 13.1, INR 1.16, PT-T 24.7. Chemistries initially on admission showed electrolytes with potassium 3.2, carbon dioxide 32, BUN 40, creatinine 3.61. Initial calcium was 14.6, glucose 109. Liver functions all within normal limits. Troponin 0.02. Albumin low at 3.1. She had a PTH level without a calcium which was low with a high calcium indicating non-parathyroid related hypercalcemia. After treatment with fluids, her calcium did show good response and had normalized and at discharge was down to 8.7. She was low on her magnesium with the lowest being 1.4. After treatment several times, it did go up to 2.2, but at discharge was at 1.8. Liver functions remained within normal limits. Creatinine had shown elevation initially on admission and at discharge was down to 2.90. Electrolytes at discharge after treatment were within normal limits with potassium 4.3. Urinalysis on admission showed normal dipstick with microscopic showing 0 to 1 RBCs, 3 to 5 WBCs, 3 to 5 epithelials, 1+ amorphus with rare bacteria. On 08/08/17, she had a Parada catheter placed that showed trace intact blood, small amount of leukocyte esterase. Microscopic revealed 3 to 5 RBCs, greater than 50 WBCs, 5 to 10 epithelials, 2+ bacteria. She was then started on antibiotics with urine culture showing no growth at 48 hours. MRSA surveillance culture showed MRSA that was sensitive to vancomycin, Bactrim, but resistant to tetracycline. She had another urine culture prior to discharge that showed no growth at 48 hours. RADIOLOGY: Chest x-ray on admission per radiologic interpretation of single view chest showed normal heart size, left basilar atelectasis, otherwise lungs were clear, no acute osseous abnormalities noted. She also had a CT of the head prior to admission with no contrast and per radiologic interpretation, there were no CT evidence of acute intracranial abnormalities, although there was note of a tiny remote right cerebral and right thalamic infarct suspected with senescent changes. She also had a carotid artery study and per radiologic interpretation showed no significant amount of plaque seen in the carotid arteries bilaterally. Bilateral vertebral arteries showed antegrade-cephalad flow on evaluation of the carotid artery system. Vertebral arteries showed no hemodynamically significant stenosis. HOSPITAL COURSE: Ms. Byrd was admitted as noted on 08/07/17 for some confusion and hypercalcemia and questionable underlying urinary tract infection. She was started on Rocephin for the urinary tract infection, fluids for the hypercalcemia and worsening renal function. She did show good response to fluids and normalized her calcium and was showing some improvement in her renal function prior to discharge. Her mental status had returned to baseline status according to her family. She was able to participate with physical therapy with a walker and was showing evidence that she could do well upon discharge. When culture results were completed after no growth, the antibiotics were stopped and the patient continued to progress well. It was felt on the day of discharge she was clinically improved enough to continue with treatment in the outpatient setting. PLAN: Ms. Byrd was discharged on 08/12/17 with instructions to followup with Dr. Cantrell as scheduled in 7 days and with nephrology that could be arranged through Dr. Cantrell's office. She was to resume her home medications and start new prescriptions as directed. She was to increase her activity as tolerated and walk with a walker and encourage fluids to prevent dehydration. She was told to return to the hospital should she have any concerning symptoms. Diet at discharge was diabetic diet as tolerated. Her activity was as tolerated. DISCHARGE MEDICATIONS: Her home medications were resumed as noted in her electronic medical record. New prescriptions include: 1. Fergon 325 mg twice daily. 2. Seroquel 25 mg daily at bedtime. Condition at discharge was stable and improved. #[id number] [facility]
[2017-08-14] MEDS ORDERED: ALENDRONATE SODIUM TAB 70 MG TAB PO SCH (09:00)
== END 2017-08-12 13:25 | DRG 641 ==
LOC: ER 13:54 → OBSVTOIN 20:25 → MS 20:25
PROVIDERS: ADMIT Nurse Practitioner Family; ATTEND Nurse Practitioner Family
DX: E83.52 Hypercalcemia (principal); N17.9 Acute kidney failure, unspecified; N30.00 Acute cystitis without hematuria; E86.0 Dehydration; R29.6 Repeated falls; R44.1 Visual hallucinations; D64.9 Anemia, unspecified; F32.9 Major depressive disorder, single episode, unspecified; I87.2 Venous insufficiency (chronic) (peripheral); E87.6 Hypokalemia; E83.42 Hypomagnesemia; I10 Essential (primary) hypertension; E78.5 Hyperlipidemia, unspecified; F41.9 Anxiety disorder, unspecified; E66.01 Morbid (severe) obesity due to excess calories; M81.0 Age-related osteoporosis without current pathological fracture; E11.9 Type 2 diabetes mellitus without complications; M54.16 Radiculopathy, lumbar region; R32 Unspecified urinary incontinence; Z66 Do not resuscitate; L89.152 Pressure ulcer of sacral region, stage 2; M62.81 Muscle weakness (generalized); Z79.84 Long term (current) use of oral hypoglycemic drugs; Z79.82 Long term (current) use of aspirin; Z88.0 Allergy status to penicillin; Z79.899 Other long term (current) drug therapy; Z68.29 Body mass index [BMI] 29.0-29.9, adult

== ENCOUNTER → 2017-08-20 | Outpatient (CLI) | payer MEDICARE, OTHER | LOC: YCHH 10:21 | PROVIDERS: ATTEND Family Medicine | DX: D64.9 Anemia, unspecified (principal); N18.9 Chronic kidney disease, unspecified; R41.82 Altered mental status, unspecified; G30.1 Alzheimer's disease with late onset ==

== ENCOUNTER → 2017-09-05 | Outpatient (CLI) | payer MEDICARE, OTHER | LOC: YCHH 12:03 | PROVIDERS: ATTEND Family Medicine | DX: E11.9 Type 2 diabetes mellitus without complications (principal); D50.9 Iron deficiency anemia, unspecified ==

== ENCOUNTER → 2017-10-03 | Outpatient (CLI) | payer MEDICARE, OTHER | LOC: YCHH 09:28 | PROVIDERS: ATTEND Family Medicine | DX: E11.9 Type 2 diabetes mellitus without complications (principal); M47.819 Spondylosis without myelopathy or radiculopathy, site unspecified ==

== ENCOUNTER → 2017-12-18 | Outpatient (CLI) | payer MEDICARE, OTHER | LOC: GMAB 09:00 | PROVIDERS: ATTEND Family Medicine | DX: E11.9 Type 2 diabetes mellitus without complications (principal); D64.9 Anemia, unspecified ==

== ENCOUNTER → 2018-04-15 | Outpatient (CLI) | payer MEDICARE, OTHER | LOC: YCHH 10:19 | PROVIDERS: ATTEND Family Medicine | DX: E11.9 Type 2 diabetes mellitus without complications (principal); E03.9 Hypothyroidism, unspecified; D64.9 Anemia, unspecified; E78.5 Hyperlipidemia, unspecified; I10 Essential (primary) hypertension ==

== ENCOUNTER → 2018-07-09 | Outpatient (CLI) | payer MEDICARE, OTHER | LOC: YCHH 09:55 | PROVIDERS: ATTEND Family Medicine | DX: E11.9 Type 2 diabetes mellitus without complications (principal); D64.9 Anemia, unspecified; E78.5 Hyperlipidemia, unspecified; G90.09 Other idiopathic peripheral autonomic neuropathy ==

== ENCOUNTER 2018-07-13 10:16 | Emergency (ER) | payer MEDICARE, OTHER ==
[2018-07-13 10:47] VITALS: TEMP 97.3
--- NOTE | 2018-07-13 10:52 | ED.PDOC ---
History of Present Illness - General Chief Complaint: Skin/Abrasion/Tear Stated Complaint: sacral wound Time Seen by Provider: 07/13/18 10:25 Source: patient Exam Limitations: no limitations - History of Present Illness Initial Comments: PT AT [facility]. HAS HAD LONG STANDING ISSUE WITH SACRAL BREAKDOWN. STARTED BLEEDING THIS AM AND NURSES BECAME CONCERNED. SENT HER TO THE ED FOR EVALUATION. BLEEDING HAS STOPPED AT THIS TIME. PT NON COMPLIANT WITH POSITION CHANGES. IS SEDENTARY AND SITS FOR PROLONGED PERIODS OF TIME. DOES HAVE HOME HEALTH. Severity: moderate Improving Factors: nothing Worsening Factors: nothing Allergies/Adverse Reactions: Allergies Penicillin G Allergy (Verified 07/25/15 02:19) Home Medications: Ambulatory Orders Aspirin [Baby Aspirin] 81 mg PO QD 06/20/14 Calcium Carbonate-Vitamin D [Calcium 600+D 600-400 mg-Unit] 1 tab PO BID 06/20/14 Lisinopril 10 mg PO DAILY 06/20/14 SITagliptin [Januvia] 50 mg PO DAILY 07/25/15 Atorvastatin Calcium [Lipitor] 10 mg PO DAILY 01/08/16 Cetirizine HCl [Zyrtec] 10 mg PO DAILY 01/08/16 Oxybutynin Chloride 5 mg PO DAILY 01/08/16 Venlafaxine HCl [Effexor Xr] 150 mg PO DAILY 01/08/16 Alendronate Sodium [Fosamax] 70 mg PO WKLY 08/07/17 Methylcellulose (Laxative) [Citrucel] 500 mg PO DAILY 08/07/17 Nystatin Powder 15 gm TOP BID PRN 08/07/17 Ferrous Gluconate [Fergon] 325 mg PO BIDFD #60 tab 08/12/17 QUEtiapine FUMARATE [Seroquel] 25 mg PO BEDTIME #30 tab 08/12/17 Review of Systems - Review of Systems Constitutional: Denies: chills, fever EENTM: States: no symptoms reported Gastrointestinal/Abdominal: Denies: abdominal pain, nausea, vomiting Genitourinary: Denies: dysuria, hematuria Musculoskeletal: Denies: back pain, neck pain Skin: States: other - BREAKDOWN. Hematologic/Lymphatic: States: no symptoms reported Past Medical History (General) - Patient Medical History Hx Seizures: No Hx Stroke: No Hx Dementia: No Hx Asthma: No Hx of COPD: No Hx Cardiac Disorders: No Hx Congestive Heart Failure: No Hx Pacemaker: No Hx Hypertension: Yes Hx Thyroid Disease: No Hx Diabetes: Yes Hx Gastroesophageal Reflux: No Hx Renal Disease: No Hx Cancer: Yes - uterine Hx of HIV: No Hx Hepatitis C: No Hx MRSA: Yes MRSA Source:: Wound - Vaccination History Hx Tetanus, Diphtheria Vaccination: No Hx Influenza Vaccination: Yes Hx Pneumococcal Vaccination: Yes - Social History Hx Tobacco Use: No Hx Chewing Tobacco Use: No Hx Alcohol Use: No Hx Substance Use: No Hx Substance Use Treatment: No Hx Depression: Yes Hx Physical Abuse: No Hx Emotional Abuse: No Hx Suspected Abuse: No - Female History Patient : No Family Medical History - Family History Mother Name: Harriett Byrd Age (years): 86 Living Status: Still Living Hx Family Asthma: No Hx Family Congestive Heart Failure: No Hx Family Hypertension: Yes - Father Hx Family Stroke: No Hx Cardiac Disease: Yes - Father Hx Family Diabetes: Yes - maternal grandmother and father Hx Family Cancer: Yes - mother colon, pt uterine Hx Family;Other: Azheimers Dementia-mom Physical Exam - Physical Exam General Appearance: Alert, No apparent distress Rectal Exam: normal exam Back Exam: normal inspection, no CVA tenderness Extremity: normal range of motion, normal inspection Neurologic: alert, normal mood/affect Skin Exam: other - PT HAS GRADE 2 BREAKDOWN BILATERALLY ON BUTTOCKS. L>R. 3 CM AREA OF BREAKDOWN WITH SOME EXCORIATION. NO ACTIVE BLEEDING. Lymphatic: no adenopathy Progress - Progress Progress: 07/13/18 11:34 OLD CHART REVIEWED. HGB STABLE. CHRONIC KIDNEY DZ WHICH IS STABLE. WILL PLACE WET TO DRY AND D/C. WILL CONTACT HOME HEALTH FOR WOUND CARE. Departure - Departure Clinical Impression: Diabetes 1.5, managed as type 2 Stage II decubitus ulcer Qualifiers: Pressure injury location: buttock Laterality: unspecified laterality Qualified Code(s): L89.302 - Pressure ulcer of unspecified buttock, stage 2 Hypertension Qualifiers: Hypertension type: essential hypertension Qualified Code(s): I10 - Essential (primary) hypertension Time of Disposition: 11:38 Disposition: Discharge to Home or Self Care Condition: Fair Departure Forms: ED Discharge - Pt. Copy, Patient Portal Self Enrollment Instructions: Pressure Sores Referrals: Bo Cantrell MD [Primary Care Provider] - 1-2 Weeks Home Medications: Ambulatory Orders Aspirin [Baby Aspirin] 81 mg PO QD 06/20/14 Calcium Carbonate-Vitamin D [Calcium 600+D 600-400 mg-Unit] 1 tab PO BID 06/20/14 Lisinopril 10 mg PO DAILY 06/20/14 SITagliptin [Januvia] 50 mg PO DAILY 07/25/15 Atorvastatin Calcium [Lipitor] 10 mg PO DAILY 01/08/16 Cetirizine HCl [Zyrtec] 10 mg PO DAILY 01/08/16 Oxybutynin Chloride 5 mg PO DAILY 01/08/16 Venlafaxine HCl [Effexor Xr] 150 mg PO DAILY 01/08/16 Alendronate Sodium [Fosamax] 70 mg PO WKLY 08/07/17 Methylcellulose (Laxative) [Citrucel] 500 mg PO DAILY 08/07/17 Nystatin Powder 15 gm TOP BID PRN 08/07/17 Ferrous Gluconate [Fergon] 325 mg PO BIDFD #60 tab 08/12/17 QUEtiapine FUMARATE [Seroquel] 25 mg PO BEDTIME #30 tab 08/12/17
[2018-07-13 12:23] VITALS: BP 100/49; O2SAT 96
== END 2018-07-13 12:20 | disposition home or self-care (01) ==
LOC: ER 10:16
DX: L89.302 Pressure ulcer of unspecified buttock, stage 2 (principal); E11.622 Type 2 diabetes mellitus with other skin ulcer; I10 Essential (primary) hypertension; S90.512A Abrasion, left ankle, initial encounter; S90.511A Abrasion, right ankle, initial encounter; F32.9 Major depressive disorder, single episode, unspecified; X58.XXXA Exposure to other specified factors, initial encounter; Y92.9 Unspecified place or not applicable; Z79.899 Other long term (current) drug therapy; Z79.82 Long term (current) use of aspirin; Z86.14 Personal history of Methicillin resistant Staphylococcus aureus infection; Z85.42 Personal history of malignant neoplasm of other parts of uterus; Z88.0 Allergy status to penicillin

== ENCOUNTER → 2018-09-07 | Outpatient (CLI) | payer MEDICARE, OTHER | LOC: YCHH 11:44 | PROVIDERS: ATTEND Family Medicine | DX: D64.9 Anemia, unspecified (principal); E11.9 Type 2 diabetes mellitus without complications ==

== ENCOUNTER → 2018-10-20 | Outpatient (CLI) | payer MEDICARE | LOC: YCHH 09:47 | PROVIDERS: ATTEND Family Medicine | DX: E11.9 Type 2 diabetes mellitus without complications (principal); L98.411 Non-pressure chronic ulcer of buttock limited to breakdown of skin; D64.9 Anemia, unspecified; L01.01 Non-bullous impetigo ==

== ENCOUNTER → 2018-12-29 | Outpatient (CLI) | payer MEDICARE | LOC: YCHH 10:01 | PROVIDERS: ATTEND Family Medicine | DX: E11.9 Type 2 diabetes mellitus without complications (principal); E75.6 Lipid storage disorder, unspecified ==

== ENCOUNTER 2019-01-22 13:00 | Emergency (ER) | payer MEDICARE, OTHER ==
[2019-01-22 13:23] VITALS: TEMP 97
--- NOTE | 2019-01-22 14:27 | CT ---
EXAM DESCRIPTION: CT-Head CLINICAL HISTORY: fall at [facility]ial COMPARISON: 08/07/2017 TECHNIQUE: Multiple axial images of the head without contrast. Multiplanar reformatted images. This exam was performed according to our departmental dose-optimization program, which includes automated exposure control, adjustment of the mA and/or kV according to patient size and/or use of iterative reconstruction technique. FINDINGS: Image quality mildly degraded by motion artifact. This limits evaluation. No definite CT evidence of intracranial hemorrhage, mass effect, or large territory infarction. Mild generalized volume loss. Mild patchy supratentorial white matter hypodensities. Chronic lacunar infarct in the right thalamus again demonstrated. Limited evaluation of the extra-axial spaces, but no definite CT evidence of hemorrhage. Calcific plaque in the visualized arteries. There is no acute calvarial defect. Mucosal thickening in the maxillary sinuses. The mastoid air cells are clear. IMPRESSION: 1. Motion limited exam, but no definitive CT evidence of an acute intracranial abnormality. 2. Senescent changes. Electronically signed by: Matthew Winter MD 01/22/2019 2:25 PM CDT
--- NOTE | 2019-01-22 14:29 | CT ---
EXAM DESCRIPTION: Cervical Spine CLINICAL HISTORY: fall at [facility] COMPARISON: None Available. TECHNIQUE: Multiple axial images of the cervical spine without contrast. Multiplanar reformatted images. This exam was performed according to our departmental dose-optimization program, which includes automated exposure control, adjustment of the mA and/or kV according to patient size and/or use of iterative reconstruction technique. FINDINGS: The bones are demineralized, which somewhat limits evaluation. Vertebral body stature appears maintained. No definite CT evidence of an acute fracture or destructive osseous lesion. Multilevel spondylitic changes with moderate disc narrowing at C5-C6 and C6-C7. Uncovertebral spurring, disc osteophyte complexes, and facet hypertrophy at these levels with mild spinal canal stenosis and moderate to severe bilateral foraminal stenoses. Less pronounced stenoses at the remaining levels. Calcific plaque in the visualized arteries. The visualized lung apices are clear. IMPRESSION: 1. Osteopenia, but no definitive CT evidence of an acute osseous abnormality in the cervical spine. 2. Multilevel spondylitic changes. 3. Atherosclerosis. Electronically signed by: Matthew Winter MD 01/22/2019 2:27 PM CDT
--- NOTE | 2019-01-22 14:40 | ED.PDOC ---
History of Present Illness - General Chief Complaint: Trauma Stated Complaint: fall from standing at senior living Time Seen by Provider: 01/22/19 13:30 Source: patient, RN notes reviewed, Vital Signs reviewed Exam Limitations: no limitations - History of Present Illness Initial Comments: 68 yo female c/o a headache after tripping over a strip of plastic & striking her head on the floor. No loss of consciousness. Mild right sided neck pain. Occurred: just prior to arrival Severity: mild Head Injury Location: frontal Method of Injury: fell Loss of Consciousness: no loss of consciousness Associated Symptoms: denies symptoms Allergies/Adverse Reactions: Allergies Penicillin G Allergy (Verified 01/22/19 13:19) Home Medications: Ambulatory Orders Aspirin [Baby Aspirin] 81 mg PO QD 06/20/14 Calcium Carbonate-Vitamin D [Calcium 600+D 600-400 mg-Unit] 1 tab PO BID 06/20/14 Lisinopril 10 mg PO DAILY 06/20/14 Atorvastatin Calcium [Lipitor] 10 mg PO DAILY 01/08/16 Cetirizine HCl [Zyrtec] 10 mg PO DAILY 01/08/16 Oxybutynin Chloride 5 mg PO BID 01/08/16 Alendronate Sodium [Fosamax] 70 mg PO WKLY 08/07/17 Nystatin Powder 15 gm TOP BID PRN 08/07/17 QUEtiapine FUMARATE [Seroquel] 25 mg PO BEDTIME #30 tab 08/12/17 Ferrous Gluconate 324 mg PO DAILY 07/13/18 Fluoxetine HCl [PROzac] 40 mg PO DAILY 07/13/18 Methylcellulose (Laxative) [Citrucel] 500 mg PO DAILY 07/13/18 Multiple Vitamins W/ Minerals [Multivitamin Adults] 1 tab PO DAILY 07/13/18 Review of Systems - Review of Systems Constitutional: States: no symptoms reported EENTM: States: no symptoms reported Respiratory: States: no symptoms reported Cardiology: States: no symptoms reported Gastrointestinal/Abdominal: States: no symptoms reported Musculoskeletal: States: see HPI Skin: States: no symptoms reported Neurological: States: see HPI Hematologic/Lymphatic: States: no symptoms reported Past Medical History (General) - Patient Medical History Hx Seizures: No Hx Stroke: No Hx Dementia: No Hx Asthma: No Hx of COPD: No Hx Cardiac Disorders: No Hx Congestive Heart Failure: No Hx Pacemaker: No Hx Hypertension: Yes Hx Thyroid Disease: No Hx Diabetes: Yes Hx Gastroesophageal Reflux: No Hx Renal Disease: No Hx Cancer: No Hx of HIV: No Hx Hepatitis C: No Hx MRSA: Yes MRSA Source:: Wound - Vaccination History Hx Tetanus, Diphtheria Vaccination: Yes Hx Influenza Vaccination: Yes Hx Pneumococcal Vaccination: Yes Immunizations Up to Date: No - Social History Hx Tobacco Use: No Hx Chewing Tobacco Use: No Hx Alcohol Use: No Hx Substance Use: No Hx Substance Use Treatment: No Hx Depression: No Feels Threatened In Home Enviroment: No Feels Threatened In a Relationship: No Hx Physical Abuse: No Hx Emotional Abuse: No Hx Suspected Abuse: No - Activities of Daily Living Penitentiary[facility]Assisted Living (if applicable):: [facility] - Female History Patient is a Female of Child Bearing Age (10 -59 yrs old): No Patient : No Family Medical History - Family History Mother Name: Harriett Byrd Age (years): 86 Living Status: Still Living Hx Family Asthma: No Hx Family Congestive Heart Failure: No Hx Family Hypertension: Yes - Father Hx Family Stroke: No Hx Cardiac Disease: Yes - Father Hx Family Diabetes: Yes - maternal grandmother and father Hx Family Cancer: Yes - mother colon, pt uterine Hx Family;Other: Azheimers Dementia-mom Physical Exam - Physical Exam General Appearance: Alert, Comfortable, No apparent distress Head Injury: no evidence of injury Eye Exam: bilateral normal ENT Exam: hearing grossly normal, no evidence of ENT injury Neck Exam: non-tender, full range of motion Cardiovascular/Respiratory: no respiratory distress Back Exam: normal inspection - mild bilateral paraspinous discomfort Extremity: normal range of motion 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 Her only back pain now is well to the left of the midline at approx the T 12 level intersecting with the medial scapular line. I suspect the T11 deformity is not acute. She has been advised to f/u with her doctor re: the new finding. Red flag symptom education given. - EKG/XRAY/CT XRAY: T&L spine: 30% comp of T11 CT: CT brain & C-spine = no acute process Departure - Departure Clinical Impression: Vertebral compression fracture Strain of neck muscle Qualifiers: Encounter type: initial encounter Qualified Code(s): S16.1XXA - Strain of muscle, fascia and tendon at neck level, initial encounter Contusion of scalp Qualifiers: Encounter type: initial encounter Qualified Code(s): S00.03XA - Contusion of scalp, initial encounter Head injury Qualifiers: Encounter type: initial encounter Qualified Code(s): S09.90XA - Unspecified injury of head, initial encounter Time of Disposition: 15:05 Disposition: Discharge to Home or Self Care Condition: Good Departure Forms: ED Discharge - Pt. Copy, Patient Portal Self Enrollment Instructions: Minor Head Injury (DC), Vertebral Compression Fracture (DC) Activity: increase activity as tolerated Referrals: RON SCHROEDER MD [Primary Care Provider] - 1-5 Days Home Medications: Ambulatory Orders Aspirin [Baby Aspirin] 81 mg PO QD 06/20/14 Calcium Carbonate-Vitamin D [Calcium 600+D 600-400 mg-Unit] 1 tab PO BID 06/20/14 Lisinopril 10 mg PO DAILY 06/20/14 Atorvastatin Calcium [Lipitor] 10 mg PO DAILY 01/08/16 Cetirizine HCl [Zyrtec] 10 mg PO DAILY 01/08/16 Oxybutynin Chloride 5 mg PO BID 01/08/16 Alendronate Sodium [Fosamax] 70 mg PO WKLY 08/07/17 Nystatin Powder 15 gm TOP BID PRN 08/07/17 QUEtiapine FUMARATE [Seroquel] 25 mg PO BEDTIME #30 tab 08/12/17 Ferrous Gluconate 324 mg PO DAILY 07/13/18 Fluoxetine HCl [PROzac] 40 mg PO DAILY 07/13/18 Methylcellulose (Laxative) [Citrucel] 500 mg PO DAILY 07/13/18 Multiple Vitamins W/ Minerals [Multivitamin Adults] 1 tab PO DAILY 07/13/18
--- NOTE | 2019-01-22 14:53 | RAD ---
EXAM DESCRIPTION: Lumbar Spine 3 Views CLINICAL HISTORY: back pain COMPARISON: None Available. TECHNIQUE: Three views lumbar spine FINDINGS: Severe osteopenia and severe levoscoliosis of the lumbar spine is present with facet sclerosis in the lower facet elements. Aortic calcification without aneurysm is noted. Multilevel disc desiccation and degeneration and disc space narrowing is present. Moderate estimated 30% anterior wedging of T11 vertebral body, age indeterminate is noted. Vertebral collapse within the lumbar spine is not apparent. IMPRESSION: Severe osteopenia and advanced levoscoliosis of the lumbar spine with advanced degenerative disc disease and facet arthropathy. Modest T11 compression deformity with anterior wedging, age indeterminate. Electronically signed by: Job Baker MD 01/22/2019 2:51 PM CDT
--- NOTE | 2019-01-22 14:55 | RAD ---
EXAM DESCRIPTION: Thoracic Spine,AP Lateral CLINICAL HISTORY: 68 years Female, back pain COMPARISON: None. FINDINGS: Osteopenia and diffuse modest disc degeneration is present with mild dextroscoliosis of the lower thoracic spine. There is moderate estimated 30% compression deformity and anterior wedging of the T11 vertebral body, age indeterminate. Additional compression deformities are not apparent. No gross abnormality of the upper thoracic spine noted. IMPRESSION: Osteopenia and degenerative changes with mild dextroscoliosis of the lower thoracic spine. Age-indeterminate mild 30% T11 anterior compression deformity. Electronically signed by: oJb Baker MD 01/22/2019 2:53 PM CDT
[2019-01-22 15:52] VITALS: BP 100/55; O2SAT 93
== END 2019-01-22 15:55 | disposition home or self-care (01) ==
LOC: ER 13:00
DX: S09.90XA Unspecified injury of head, initial encounter (principal); S00.03XA Contusion of scalp, initial encounter; S16.1XXA Strain of muscle, fascia and tendon at neck level, initial encounter; M54.6 Pain in thoracic spine; I10 Essential (primary) hypertension; E11.9 Type 2 diabetes mellitus without complications; Z79.899 Other long term (current) drug therapy; Z79.82 Long term (current) use of aspirin; Z88.0 Allergy status to penicillin; W01.0XXA Fall on same level from slipping, tripping and stumbling without subsequent striking against object, initial encounter; Y92.129 Unspecified place in nursing home as the place of occurrence of the external cause

== ENCOUNTER 2019-01-25 14:59 | Emergency (ER) | payer MEDICARE ==
--- NOTE | 2019-01-25 15:31 | ED.PDOC ---
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 MILD HEADACHE AND LEFT KNEE PAIN SHE HAS HISTORY OF FREQUENT FALLS SHE HAS NO LOSS OF CONSCIOUSNESS NO FOCAL WEAKNESS NO CHANGE IN MENTAL STATUS REPORTS NO CHEST ABDOMEN AND OR RIB PAIN - History of Present Illness Timing/Duration: 1 hour Improving Factors: nothing Worsening Factors: nothing Associated Symptoms: weakness Allergies/Adverse Reactions: Allergies Penicillin G Allergy (Verified 01/22/19 13:19) Home Medications: Ambulatory Orders Aspirin [Baby Aspirin] 81 mg PO QD 06/20/14 Calcium Carbonate-Vitamin D [Calcium 600+D 600-400 mg-Unit] 1 tab PO BID 06/20/14 Lisinopril 10 mg PO DAILY 06/20/14 Atorvastatin Calcium [Lipitor] 10 mg PO DAILY 01/08/16 Cetirizine HCl [Zyrtec] 10 mg PO DAILY 01/08/16 Oxybutynin Chloride 5 mg PO BID 01/08/16 Alendronate Sodium [Fosamax] 70 mg PO WKLY 08/07/17 Nystatin Powder 15 gm TOP BID PRN 08/07/17 QUEtiapine FUMARATE [Seroquel] 25 mg PO BEDTIME #30 tab 08/12/17 Ferrous Gluconate 324 mg PO DAILY 07/13/18 Fluoxetine HCl [PROzac] 40 mg PO DAILY 07/13/18 Methylcellulose (Laxative) [Citrucel] 500 mg PO DAILY 07/13/18 Multiple Vitamins W/ Minerals [Multivitamin Adults] 1 tab PO DAILY 07/13/18 Review of Systems - Review of Systems Constitutional: States: no symptoms reported EENTM: States: no symptoms reported Respiratory: States: no symptoms reported Cardiology: States: no symptoms reported Gastrointestinal/Abdominal: States: no symptoms reported Genitourinary: States: no symptoms reported Musculoskeletal: States: no symptoms reported Skin: States: no symptoms reported Neurological: States: no symptoms reported Endocrine: States: no symptoms reported Past Medical History (General) - Patient Medical History Hx Seizures: No Hx Stroke: No Hx Dementia: No Hx Asthma: No Hx of COPD: No Hx Cardiac Disorders: No Hx Congestive Heart Failure: No Hx Pacemaker: No Hx Hypertension: Yes Hx Thyroid Disease: No Hx Diabetes: Yes Hx Gastroesophageal Reflux: No Hx Renal Disease: No Hx Cancer: No Hx of HIV: No Hx Hepatitis C: No Hx MRSA: Yes MRSA Source:: Wound - Vaccination History Hx Tetanus, Diphtheria Vaccination: Yes Hx Influenza Vaccination: Yes Hx Pneumococcal Vaccination: Yes - Social History Hx Tobacco Use: No Hx Chewing Tobacco Use: No Hx Alcohol Use: No Hx Substance Use: No Hx Substance Use Treatment: No Hx Depression: No Hx Physical Abuse: No Hx Emotional Abuse: No Hx Suspected Abuse: No - Female History Patient : No Family Medical History - Family History Mother Name: Harreitt Byrd Age (years): 86 Living Status: Still Living Hx Family Asthma: No Hx Family Congestive Heart Failure: No Hx Family Hypertension: Yes - Father Hx Family Stroke: No Hx Cardiac Disease: Yes - Father Hx Family Diabetes: Yes - maternal grandmother and father Hx Family Cancer: Yes - mother colon, pt uterine Hx Family;Other: Azheimers Dementia-mom Physical Exam - Physical Exam General Appearance: Alert, Comfortable Eye Exam: bilateral normal Ears, Nose, Throat: hearing grossly normal, normal ENT inspection, normal pharynx Neck: non-tender, full range of motion, supple Respiratory: chest non-tender, lungs clear, normal breath sounds, no respiratory distress, no accessory muscle use Cardiovascular/Chest: normal peripheral pulses, regular rate, rhythm, no edema, no gallop, no JVD, no murmur Gastrointestinal/Abdominal: normal bowel sounds, non tender, soft, no organomegaly, no pulsatile mass Back Exam: normal inspection, no CVA tenderness, no vertebral tenderness Extremity: normal range of motion, non-tender, normal inspection 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 Copy, Patient Portal Self Enrollment Instructions: DI for Trauma Diet: resume usual diet Referrals: RON SCHROEDER MD [Primary Care Provider] - 1-2 Weeks Home Medications: Ambulatory Orders Aspirin [Baby Aspirin] 81 mg PO QD 06/20/14 Calcium Carbonate-Vitamin D [Calcium 600+D 600-400 mg-Unit] 1 tab PO BID 06/20/14 Lisinopril 10 mg PO DAILY 06/20/14 Atorvastatin Calcium [Lipitor] 10 mg PO DAILY 01/08/16 Cetirizine HCl [Zyrtec] 10 mg PO DAILY 01/08/16 Oxybutynin Chloride 5 mg PO BID 01/08/16 Alendronate Sodium [Fosamax] 70 mg PO WKLY 08/07/17 Nystatin Powder 15 gm TOP BID PRN 08/07/17 QUEtiapine FUMARATE [Seroquel] 25 mg PO BEDTIME #30 tab 08/12/17 Ferrous Gluconate 324 mg PO DAILY 07/13/18 Fluoxetine HCl [PROzac] 40 mg PO DAILY 07/13/18 Methylcellulose (Laxative) [Citrucel] 500 mg PO DAILY 07/13/18 Multiple Vitamins W/ Minerals [Multivitamin Adults] 1 tab PO DAILY 07/13/18
--- NOTE | 2019-01-25 16:20 | CT ---
EXAM DESCRIPTION: Head CLINICAL HISTORY: TRAUMA COMPARISON: Previous CT head August 07, 2017, January 22, 2019 TECHNIQUE: Noncontrast head CT was performed with routine protocol. FINDINGS: Normal garza-white matter differentiation. Ventricles and sulci are prominent consistent with age-related cerebral volume loss. Low density areas in the white matter indicate chronic microvascular ischemic disease. No new garza matter defect or area of decreasing density in the brain to suggest an evolving infarction. No intracranial hemorrhage or area of hemorrhagic transformation. No significant change compared to the previous studies. No subdural hematoma, focal edema or shift of the midline. No sulcal effacement. Normal orbital contents. Basilar cisterns appear clear. Intact calvarium with no fracture or lytic lesion. Normal aeration of tympanic cavities and mastoid air cells. No fluid levels in the paranasal sinuses. Minimal mucosal thickening in the inferomedial left maxillary sinus. Posterior middle right ethmoid air cell opacification is unchanged. Skull base appears intact. Symmetrical internal auditory canals. IMPRESSION: No acute intracranial pathologic process. This exam was performed according to our departmental dose-optimization program, which includes automated exposure control, adjustment of the mA and/or kV according to patient size and/or use of iterative reconstruction technique. Total DLP equals 967.47 mGycm. Electronically signed by: Robert Sofia MD 01/25/2019 4:18 PM CDT
[2019-01-25 16:21] VITALS: TEMP 97.8
--- NOTE | 2019-01-25 16:24 | CT ---
EXAM DESCRIPTION: Cervical Spine CLINICAL HISTORY: TRAUMA COMPARISON: Previous CT of the neck January 22, 2019 TECHNIQUE: Cervical CT is performed with thin-section axial imaging. MPRs are created and reviewed as well. FINDINGS: Axial bone window images reveal intact ring of C1. No abnormal widening of the atlantodens interval. No fracture of the vertebral bodies or transverse processes or posterior elements. Lung apices appear clear. No cervical mass or adenopathy. Sagittal reformatted images show normal alignment of vertebral bodies and facets. No jumped facet or facet fracture. Normal craniocervical alignment. No prevertebral soft tissue swelling. No a avulsion of the spinous processes. Spondylosis: Multilevel facet degenerative changes with mild spurring. Mid and lower cervical disc/osteophyte complexes appear chronic without high-grade spinal stenosis. Sagittal images show old disc herniation in the midline at C4-5 with superior extension and calcification. Coronal reformatted images show normal atlantooccipital and atlantoaxial alignment. The base of the dens is intact as is the body of C2. Intact lateral masses. IMPRESSION: Negative for fracture or posttraumatic subluxation. This exam was performed according to our departmental dose-optimization program, which includes automated exposure control, adjustment of the mA and/or kV according to patient size and/or use of iterative reconstruction technique. Total DLP equals 323.05 mGycm. Electronically signed by: Robert Sofia MD 01/25/2019 4:21 PM CDT
--- NOTE | 2019-01-25 17:35 | RAD ---
EXAM DESCRIPTION: Knee,Left 2 or More Views CLINICAL HISTORY: 68 years Female TRAUMA COMPARISON: None TECHNIQUE: Three images of the left knee were obtained. FINDINGS: No fracture seen. Marked medial joint compartment narrowing. Marked posterior patellar spurring with narrowing of the patellofemoral joint space. Mild osteophyte formation medial and lateral joint compartments. Mild bony demineralization. No significant joint effusion. IMPRESSION: No acute fracture or dislocation seen. Marked degenerative change. Electronically signed by: Alexsandra May MD 01/25/2019 5:33 PM CDT
[2019-01-25 19:12] VITALS: BP 133/64; O2SAT 97
== END 2019-01-25 18:18 ==
LOC: ER 14:59
DX: S09.90XA Unspecified injury of head, initial encounter (principal); M25.562 Pain in left knee; M47.812 Spondylosis without myelopathy or radiculopathy, cervical region; I10 Essential (primary) hypertension; E11.9 Type 2 diabetes mellitus without complications; Z79.899 Other long term (current) drug therapy; Z88.0 Allergy status to penicillin; Z79.82 Long term (current) use of aspirin; Z91.81 History of falling; W18.30XA Fall on same level, unspecified, initial encounter; Y92.129 Unspecified place in nursing home as the place of occurrence of the external cause

== ENCOUNTER → 2019-04-02 | Outpatient (CLI) | payer MEDICARE | LOC: YCHH 09:51 | PROVIDERS: ATTEND Family Medicine | DX: E11.21 Type 2 diabetes mellitus with diabetic nephropathy (principal); D64.9 Anemia, unspecified ==

== ENCOUNTER → 2019-05-26 | Outpatient (CLI) | payer MEDICARE | LOC: YCHH 09:32 | PROVIDERS: ATTEND Family Medicine | DX: E11.21 Type 2 diabetes mellitus with diabetic nephropathy (principal); D64.9 Anemia, unspecified; E03.9 Hypothyroidism, unspecified; E78.5 Hyperlipidemia, unspecified ==

== ENCOUNTER → 2019-06-07 | Outpatient (CLI) | payer MEDICARE | LOC: YCHH 10:16 | PROVIDERS: ATTEND Family Medicine | DX: N18.9 Chronic kidney disease, unspecified (principal) ==

== ENCOUNTER → 2019-07-10 | Outpatient (CLI) | payer MEDICARE, OTHER | LOC: YCHH 12:14 | PROVIDERS: ATTEND Family Medicine | DX: N18.9 Chronic kidney disease, unspecified (principal) ==

== ENCOUNTER → 2019-07-13 | Outpatient (CLI) | payer MEDICARE, OTHER ==
--- NOTE | 2019-07-14 17:13 | MRI ---
EXAM DESCRIPTION: Cervical Spine: MRI. CLINICAL HISTORY: 68 years Female CERVICAL DISC DISORDER COMPARISON: MRI scan thoracic spine on this visit. TECHNIQUE: Multiplanar, high-field MRI, multiple sequences, non-contrast Cervical spine.. Motion artifact on several sequences and swallowing artifact. FINDINGS: C2-C3: Minimal disc desiccation with disc space maintained. Posterior ligament and facet joints are degenerated and hypertrophic. Posterior ligaments are abutting the cord. Mild canal narrowing and bilateral neural foramina are patent. C3-C4: Disc desiccation and minimal disc space loss. Tiny posterior bulge but not abutting the cord. Mild facet and posterior ligament degenerative thickening with mild canal narrowing. Mild narrowing of the right neural foramen. Left uncinate spur with no significant narrowing of the left neural foramen. C4-C5: Disc desiccation with disc space maintained. Posterior midline 4 mm disc protrusion impressing on the ventral cord and superior extrusion in the anterior epidural space. Degenerative hypertrophy of the posterior ligament and the left facet with mild to moderate left neural foraminal narrowing. Mild central canal stenosis. Right neuroforamen is patent. C5-C6: Disc desiccation and minimal disc space loss. Trace anterolisthesis and posterior midline 2 mm bulge. Degenerative hypertrophy of the posterior ligaments. Mild canal narrowing. Right neuroforamen is patent. Left uncinate spur and moderate to severe narrowing. C6-C7: Disc desiccation moderate disc space loss endplate reactive changes. Minimal posterior bulge. Mild arthrosis left facet. Small left uncinate spur. Moderate narrowing left neural foramen and left perineural cyst. Mild canal narrowing with right neuroforamen patent. C7-T1: Moderate disc space loss and disc desiccation with Schmorl's node inferior C7 endplate. Minimal posterior disc bulge. Minimal arthrosis bilateral facets and ligament thickening. Canal narrowing and mild bilateral neural foraminal narrowing more on the left. T1-T2 disc desiccation and posterior bulge. Canal and bilateral neural foramina are patent. Facets are negative. Anterior T2-T3 spondylosis minimal disc desiccation and minimal posterior bulge.. Spinal alignment minimally kyphotic C4-C6.. Increased T2 and STIR signal in the central and posterior cord at the C4 level.. Near cord compression at C4-C5.. Atlantoaxial joint arthrosis and hypertrophy mild but no cord compression. Base of the cerebellar tonsils is at the level of the foramen magnum. Paravertebral soft tissues unremarkable.. Vertebral bodies are not compressed at any level. Otherwise normal marrow signal in the remaining vertebral bodies and the posterior elements. IMPRESSION: 1. Abnormal increased T2 and inversion recovery signal in the central and posterior cord at the C4 level just superior to near-compression of the cord at C4-C5. Differential includes cord edema, demyelination, inflammation, tumor and myelomalacia. Consider follow-up MRI with gadolinium IV contrast. 2. Posterior midline C4-C5 disc protrusion with superior extrusion; posterior ligament thickening and near compression of the cord as previously described. Mild central canal stenosis. Mild to moderate left neural foraminal narrowing. 3. Posterior midline C5-C6 disc bulge. Moderate to severe narrowing of the left neural foramen. Correlate for left C6 radiculopathy. 4. Moderate narrowing of the left C6-C7 neural foramen with perineural cyst. Correlate for left C7 radiculopathy. Electronically signed by: Juan A Fu MD 07/14/2019 5:11 PM [facility]
== END ==
LOC: MRI 09:00
PROVIDERS: ATTEND Psychiatry & Neurology Neurology
DX: M50.11 Cervical disc disorder with radiculopathy, high cervical region (principal); M50.121 Cervical disc disorder at C4-C5 level with radiculopathy; M50.122 Cervical disc disorder at C5-C6 level with radiculopathy; M48.02 Spinal stenosis, cervical region; M71.38 Other bursal cyst, other site

== ENCOUNTER → 2019-07-14 | Outpatient (CLI) | payer MEDICARE, OTHER ==
--- NOTE | 2019-07-14 17:28 | MRI ---
EXAM DESCRIPTION: Thoracic Spine w/o Contrast: Magnetic Resonance Imaging. CLINICAL HISTORY: RADICULOPATHY COMPARISON: MRI scan of the cervical spine without contrast on the same visit. Thoracic spine radiographs January 22, 2019. TECHNIQUE: Multiplanar, multiple standard sequences, non contrast MRI, thoracic spine. FINDINGS: Almost all disc desiccated and minimal disc space loss, including T10-11, T9-10, T8-9, T7-8, T6-T7, T4-T5, T2-T3. T7-T8 disc bulge into the right of midline abutting the cord with possible abutment of the right C7 nerve. T10-T11 disc bulge into the right of and possibly abutting the right T10 nerve. Most foramina are patent but significant narrowing seen in the right T10-T11 and T11-T12 foramina. Anterior endplate reactive changes at T2-T3.. Remaining discs with normal signal. Disc disc spaces are preserved. Canal and foramina are patent. No scoliosis.Facet joints are unremarkable. Conus terminates below T12. Cord with normal signal, no compression. Paravertebral soft tissues demonstrating muscle atrophy but no soft tissue mass. Geographic circumscribed hyperintense T1, T2, and STIR lesion in the right T10 vertebral body extending from the superior to the inferior endplate, most likely a hemangioma. Lesion with similar signal but smaller in the T8 vertebral body.. Otherwise normal marrow signal in the remaining vertebral bodies and the posterior elements. Decreased central and anterior height of the T11 vertebral body with no marrow edema in the vertebral body or pedicles. No paravertebral edema. Remaining Vertebral bodies are not compressed IMPRESSION: 1. Posterior bulging of the T7-T8 disc with spondylosis. Disc is abutting the left C7 nerve but no canal or foraminal stenosis. 2. Left paracentral protrusion of the T10-T11 disc abutting the ventral cord and the left T10 nerve. Left paracentral moderate canal narrowing. Marked narrowing of the left foramen. 3. T4-T5 disc desiccation with posterior focal bulge or small protrusion impressing on the ventral cord with mild canal narrowing. Bilateral foramina are patent. Multiple other discs showing endplate reactive changes and disc bulging. 4. No compression injury of the central and anterior T11 vertebral body with normal marrow signal. Near stenosis of the bilateral T11-T12 neural foramina. 5. No abnormal cord signal as was seen in the cervical spine MRI. Electronically signed by: Juan A Fu MD 07/14/2019 5:26 PM [facility]
== END ==
LOC: MRI 14:00
PROVIDERS: ATTEND Psychiatry & Neurology Neurology
DX: M51.14 Intervertebral disc disorders with radiculopathy, thoracic region (principal); M47.24 Other spondylosis with radiculopathy, thoracic region; M50.11 Cervical disc disorder with radiculopathy, high cervical region; M48.04 Spinal stenosis, thoracic region; F01.51 Vascular dementia, unspecified severity, with behavioral disturbance

== ENCOUNTER → 2019-07-15 | Outpatient (CLI) | payer MEDICARE, OTHER ==
--- NOTE | 2019-07-15 19:12 | MRI ---
EXAM DESCRIPTION: Brain w/o Contrast: MRI. CLINICAL HISTORY: VASCULAR DEMENTIA WITH BEHAVIOR DISTURBANCE COMPARISON: MR scans of the thoracic and cervical spine on the and 13 of July. TECHNIQUE: Multiplanar, high-field MRI unit, multiple diffusion sequences, multiple conventional sequences without contrast. FINDINGS: Bilateral confluent Hyperintense FLAIR and T2-weighted signal in the periventricular white matter abutting the frontal horns posterior horns and occipital horns of the bilateral lateral ventricles. Also contains fluid signal in the periventricular [facility] white matter tracks and centrum semiovale. Also bilateral multifocal lesions with same signal in the subcortical white matter of the frontoparietal and occipital lobes. Mostly sparing of the bilateral temporal lobes. No mass effect in the corpus callosum but cannot exclude abnormal signal in the body of the corpus due to positioning and artifact. No lesions are seen in the anterior or posterior fibers of the corpus.. No hemorrhage, no cerebral edema, no mass-effect. No diffusion restriction. Normal signal in the bilateral basal ganglia. Hyperintense T2 signal in the right thalamus which is hypointense on FLAIR and T1 sequences. No hemorrhage or mass effect. No diffusion restriction. Normal signal in the brainstem and cerebellar hemispheres. No hemorrhage, no parenchymal edema, no mass-effect. Diffusion imaging of the posterior fossa is nondiagnostic due to magnetic susceptibility artifact. Concordance of the diffusion and non-diffusion sequences in other segments of the brain with no diffusion restriction. Cortical sulci, ventricles, and other CSF spaces, and the subdural spaces are prominent for patient's age. No effacement or displacement. No midline shift. No extra-axial hemorrhage. Normal flow signal void in the major vessels of the upper [place], and the venous sinuses. IACs are symmetric bilaterally. Minimally increased T2 intensity in the bilateral mastoid air cells, more on the right. No mass effect in the bilateral cerebellopontine angles. Pituitary gland occupies less than half of the sella. Base of the cerebellar tonsils is at the level of the foramen magnum. Minimal mucoperiosteal thickening in the paranasal sinuses. Mostly in the left antrum. No air-fluid levels.. The bony calvarium is intact. IMPRESSION: 1. Confluent and multifocal lesions in the periventricular white matter and subcortical white matter in the frontal parietal and occipital lobes which is relatively symmetric. Not associated with hemorrhage mass effect or diffusion restriction. Most likely related to cerebral microvascular disease, and aging, but cannot exclude demyelinating process such as multiple sclerosis or vasculitis. Corpus callosum was not well seen due to patient positioning. 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 No white matter lesions seen in the brainstem or cerebellar hemispheres. Diffusion restriction is nondiagnostic due to artifact. 2. Cerebral cortical and central atrophy and cerebellar atrophy is notable for patient's age which may be cerebral microvascular disease. 3. Small pituitary gland. Chronic sinusitis paranasal sinuses and mastoid air cells. No air-fluid levels. Electronically signed by: Juan A Fu MD 07/15/2019 7:11 PM [facility]
== END ==
LOC: MRI 09:44
PROVIDERS: ATTEND Psychiatry & Neurology Neurology
DX: F01.51 Vascular dementia, unspecified severity, with behavioral disturbance (principal); R90.82 White matter disease, unspecified; G93.9 Disorder of brain, unspecified; J32.9 Chronic sinusitis, unspecified; G31.9 Degenerative disease of nervous system, unspecified; E23.7 Disorder of pituitary gland, unspecified; M50.11 Cervical disc disorder with radiculopathy, high cervical region; M51.14 Intervertebral disc disorders with radiculopathy, thoracic region

== ENCOUNTER → 2019-07-16 | Outpatient (CLI) | payer MEDICARE, OTHER ==
--- NOTE | 2019-07-16 14:42 | CT ---
EXAM DESCRIPTION: Abdoment/Pelvis w/o Contrast CLINICAL HISTORY: Chronic kidney disease, stage 4 (severe) COMPARISON: September 28, 2008 TECHNIQUE: CT of the abdomen and Pelvis was performed without IV contrast. This exam was performed according to our departmental dose-optimization program, which includes automated exposure control, adjustment of the mA and/or kV according to patient size and/or use of iterative reconstruction technique. FINDINGS: Mild subsegmental atelectasis or scarring in the lung bases. Small to moderate hiatal hernia. No adenopathy or ascites. Mural calcification in the abdominal aorta without aneurysm. The gallbladder is surgically absent. The liver, spleen, pancreas and adrenals are unremarkable for noncontrast technique. Bilateral renal cortical atrophy without hydronephrosis or perinephric inflammation/fluid. Cortical irregularity with underlying calcification or surgical clips in the mid right kidney, question prior surgery versus nonobstructing renal calculi. These are unchanged from September,. Neither ureter is dilated. No ureteral calculus. No bladder wall thickening or bladder calcification. The uterus and ovaries are not seen, correlate with surgical history. No dilated small bowel loops or mesenteric abnormality. Occasional colonic diverticulosis without diverticulitis. Moderate amount of stool and gas scattered throughout the colon without wall thickening or pericolonic inflammation. Degenerative changes in the thoracolumbar spine multiple levels including moderate levoscoliosis, worse from 2008. IMPRESSION: Bilateral renal cortical atrophy without hydronephrosis, perinephric inflammation or other acute urinary tract abnormality. Colonic diverticulosis without diverticulitis and other nonacute findings as detailed above. Multilevel degenerative changes in the thoracolumbar spine including levoscoliosis, worse from September,. Electronically signed by: Sánchez Martínez MD 07/16/2019 2:40 PM [facility]
== END ==
LOC: CT 08:39
PROVIDERS: ATTEND Internal Medicine Nephrology
DX: N18.4 Chronic kidney disease, stage 4 (severe) (principal); N26.1 Atrophy of kidney (terminal); K57.30 Diverticulosis of large intestine without perforation or abscess without bleeding; M47.895 Other spondylosis, thoracolumbar region; M41.85 Other forms of scoliosis, thoracolumbar region

== ENCOUNTER → 2019-07-30 | Outpatient (CLI) | payer MEDICARE, OTHER | LOC: YCHH 08:44 | PROVIDERS: ATTEND Family Medicine | DX: D64.9 Anemia, unspecified (principal); R79.89 Other specified abnormal findings of blood chemistry ==

== ENCOUNTER 2019-08-24 21:20 | Emergency (ER) | payer MEDICARE, OTHER ==
[2019-08-24 21:59] VITALS: TEMP 96.3
--- NOTE | 2019-08-24 22:41 | RAD ---
EXAM: XR Pelvis, 1 or 2 Views CLINICAL HISTORY: The patient is 69 years old and is Female; fall pain TECHNIQUE: Frontal view of the pelvis. COMPARISON: No relevant prior studies available. FINDINGS: BONES/JOINTS: The femoral heads are well located. The SI joints and pubic symphysis are intact without evidence of diastases. No acute fracture. No dislocation. SOFT TISSUES: Unremarkable. IMPRESSION: No acute findings in the pelvis. Electronically signed by: Milana Pagan MD 08/24/2019 10:40 PM [facility]
[2019-08-24 23:08] VITALS: O2SAT 94
--- NOTE | 2019-08-24 23:12 | CT ---
CT pelvis without contrast on 08/24/2019 CLINICAL INDICATION: Fall, bilateral hip pain TECHNIQUE: Multiple axial images are obtained throughout the pelvis without the administration of contrast. Sagittal and coronal reformatted images were also performed and reviewed. This exam was performed according to our departmental dose-optimization program, which includes automated exposure control, adjustment of the mA and/or kV according to patient size and/or use of iterative reconstruction technique. Total DLP is 630.51 mGy*cm. COMPARISON: X-ray from earlier the same day and CT from 07/16/2019 FINDINGS: Degenerative changes and levoscoliosis is partially imaged in the lower lumbar spine. Vascular calcifications are noted. The SI joints are well aligned. The hips are well located. Mild changes of osteoarthritis are noted in bilateral hips. The patient is status post hysterectomy. No free fluid is noted in the pelvis. There are no acute fracture lines. No other bony or soft tissue abnormality is noted. IMPRESSION: No acute abnormality. Electronically signed by: Maury Morales 08/24/2019 11:11 PM [facility]
--- NOTE | 2019-08-24 23:19 | ED.PDOC ---
History of Present Illness - General Chief Complaint: Trauma Stated Complaint: sacral pain, fell Time Seen by Provider: 08/24/19 22:10 Source: patient, RN notes reviewed, Vital Signs reviewed, EMS notes reviewed Exam Limitations: other - Mild dementia - History of Present Illness Initial Comments: Patient is a 69-year-old retirement patient who presents status post fall from bed with complaints of bilateral hip pain and tailbone pain. Patient has a long known sacral ulcer. Patient has some mild dementia and therefore is unreliable in her history and review of systems. Patient denies any other pain except her hips and her sacrum. Patient slid off the edge of the bed per the retirement and landed on her buttocks. She did not fall or hit her head. The pain is mild in intensity. Nothing makes it better or worse. It is continuous. Timing/Duration: 1/2 hour Severity: mild Improving Factors: nothing Worsening Factors: nothing Associated Symptoms: denies symptoms Allergies/Adverse Reactions: Allergies Penicillin G Allergy (Verified 01/22/19 13:19) Home Medications: Ambulatory Orders Aspirin [Baby Aspirin] 81 mg PO QD 06/20/14 Calcium Carbonate-Vitamin D [Calcium 600+D 600-400 mg-Unit] 1 tab PO BID 06/20/14 Lisinopril 10 mg PO DAILY 06/20/14 Atorvastatin Calcium [Lipitor] 10 mg PO DAILY 01/08/16 Cetirizine HCl [Zyrtec] 10 mg PO DAILY 01/08/16 Oxybutynin Chloride 5 mg PO BID 01/08/16 Alendronate Sodium [Fosamax] 70 mg PO WKLY 08/07/17 Nystatin Powder 15 gm TOP BID PRN 08/07/17 QUEtiapine FUMARATE [Seroquel] 25 mg PO BEDTIME #30 tab 08/12/17 Ferrous Gluconate 324 mg PO DAILY 07/13/18 Fluoxetine HCl [PROzac] 40 mg PO DAILY 07/13/18 Methylcellulose (Laxative) [Citrucel] 500 mg PO DAILY 07/13/18 Multiple Vitamins W/ Minerals [Multivitamin Adults] 1 tab PO DAILY 07/13/18 Review of Systems - Review of Systems Constitutional: States: no symptoms reported, see HPI EENTM: States: no symptoms reported Respiratory: States: no symptoms reported Cardiology: States: no symptoms reported Gastrointestinal/Abdominal: States: no symptoms reported Musculoskeletal: States: back pain, joint pain Skin: States: see HPI Neurological: States: no symptoms reported Endocrine: States: no symptoms reported Hematologic/Lymphatic: States: no symptoms reported Unable to Obtain Due To: dementia All other Systems: Reviewed and Negative Past Medical History (General) - Patient Medical History Hx Seizures: No Hx Stroke: No Hx Dementia: No Hx Asthma: No Hx of COPD: No Hx Cardiac Disorders: No Hx Congestive Heart Failure: No Hx Pacemaker: No Hx Hypertension: Yes Hx Thyroid Disease: No Hx Diabetes: Yes Hx Gastroesophageal Reflux: No Hx Renal Disease: No Hx Cancer: No Hx of HIV: No Hx Hepatitis C: No Hx MRSA: Yes MRSA Source:: Wound - Vaccination History Hx Tetanus, Diphtheria Vaccination: Yes Hx Influenza Vaccination: Yes Hx Pneumococcal Vaccination: Yes - Social History Hx Tobacco Use: No Hx Chewing Tobacco Use: No Hx Alcohol Use: No Hx Substance Use: No Hx Substance Use Treatment: No Hx Depression: No Hx Physical Abuse: No Hx Emotional Abuse: No Hx Suspected Abuse: No - Female History Patient : No Family Medical History - Family History Mother Name: Harriett Byrd Age (years): 86 Living Status: Still Living Hx Family Asthma: No Hx Family Congestive Heart Failure: No Hx Family Hypertension: Yes - Father Hx Family Stroke: No Hx Cardiac Disease: Yes - Father Hx Family Diabetes: Yes - maternal grandmother and father Hx Family Cancer: Yes - mother colon, pt uterine Hx Family;Other: Azheimers Dementia-mom Physical Exam - Physical Exam General Appearance: Alert, Comfortable, Obese, Well Developed, Well Hydrated, Well Nourished Eye Exam: bilateral normal Ears, Nose, Throat: hearing grossly normal, normal pharynx Neck: non-tender, full range of motion Respiratory: chest non-tender, lungs clear, normal breath sounds Cardiovascular/Chest: normal peripheral pulses, regular rate, rhythm, no murmur Peripheral Pulses: radial,right: 2+, radial,left: 2+ Gastrointestinal/Abdominal: normal bowel sounds, non tender, soft Back Exam: no vertebral tenderness, other Extremity: normal range of motion, non-tender, other - Lower extremities with swelling and multiple eschars. Neurologic: alert, normal mood/affect Skin Exam: rash - Lower extremities Lymphatic: no adenopathy Progress - Progress Progress: Differential diagnosis: Pelvis fracture, spine fracture, decubitus ulcer, fall among others. 08/24/19 23:28 Patient's x-rays are negative for fracture. Patient denies any other symptoms. Plan on discharge back to the retirement at this time. Hoang Gallegos M.D. #[id number] - Results/Orders Results/Orders: CT pelvis without contrast on 08/24/2019 CLINICAL INDICATION: Fall, bilateral hip pain TECHNIQUE: Multiple axial images are obtained throughout the pelvis without the administration of contrast. Sagittal and coronal reformatted images were also performed and reviewed. This exam was performed according to our departmental dose-optimization program, which includes automated exposure control, adjustment of the mA and/or kV according to patient size and/or use of iterative reconstruction technique. Total DLP is 630.51 mGy*cm. COMPARISON: X- ray from earlier the same day and CT from 07/16/2019 FINDINGS: Degenerative changes and levoscoliosis is partially imaged in the lower lumbar spine. Vascular calcifications are noted. The SI joints are well aligned. The hips are well located. Mild changes of osteoarthritis are noted in bilateral hips. The patient is status post hysterectomy. No free fluid is noted in the pelvis. There are no acute fracture lines. No other bony or soft tissue abnormality is noted. IMPRESSION: No acute abnormality. EXAM: XR Pelvis, 1 or 2 Views CLINICAL HISTORY: The patient is 69 years old and is Female; fall pain TECHNIQUE: Frontal view of the pelvis. COMPARISON: No relevant prior studies available. FINDINGS: BONES/JOINTS: The femoral heads are well located. The SI joints and pubic symphysis are intact without evidence of diastases. No acute fracture. No dislocation. SOFT TISSUES: Unremarkable. IMPRESSION: No acute findings in the pelvis. Electronically signed by: Milana Pagan MD 08/24/2019 10:40 PM Departure - Departure Clinical Impression: Fall from bed, initial encounter Contusion of buttock Qualifiers: Encounter type: initial encounter Qualified Code(s): S30.0XXA - Contusion of lower back and pelvis, initial encounter Time of Disposition: 23:30 Disposition: Discharge to Home or Self Care Condition: Fair Departure Forms: ED Discharge - Pt. Copy, Patient Portal Self Enrollment Instructions: Preventing Falls in the Older Adult, Contusion (DC) Referrals: RON SCHROEDER MD [Primary Care Provider] - 1-2 Weeks Home Medications: Ambulatory Orders Aspirin [Baby Aspirin] 81 mg PO QD 06/20/14 Calcium Carbonate-Vitamin D [Calcium 600+D 600-400 mg-Unit] 1 tab PO BID 06/20/14 Lisinopril 10 mg PO DAILY 06/20/14 Atorvastatin Calcium [Lipitor] 10 mg PO DAILY 01/08/16 Cetirizine HCl [Zyrtec] 10 mg PO DAILY 01/08/16 Oxybutynin Chloride 5 mg PO BID 01/08/16 Alendronate Sodium [Fosamax] 70 mg PO WKLY 08/07/17 Nystatin Powder 15 gm TOP BID PRN 08/07/17 QUEtiapine FUMARATE [Seroquel] 25 mg PO BEDTIME #30 tab 08/12/17 Ferrous Gluconate 324 mg PO DAILY 07/13/18 Fluoxetine HCl [PROzac] 40 mg PO DAILY 07/13/18 Methylcellulose (Laxative) [Citrucel] 500 mg PO DAILY 07/13/18 Multiple Vitamins W/ Minerals [Multivitamin Adults] 1 tab PO DAILY 07/13/18
[2019-08-24 23:39] VITALS: BP 85/44
== END 2019-08-24 23:59 | disposition home or self-care (01) ==
LOC: ER 21:20
DX: S30.0XXA Contusion of lower back and pelvis, initial encounter (principal); F03.90 Unspecified dementia, unspecified severity, without behavioral disturbance, psychotic disturbance, mood disturbance, and anxiety; I10 Essential (primary) hypertension; E11.9 Type 2 diabetes mellitus without complications; Z79.82 Long term (current) use of aspirin; Z79.899 Other long term (current) drug therapy; Z88.0 Allergy status to penicillin; W06.XXXA Fall from bed, initial encounter; Y92.129 Unspecified place in nursing home as the place of occurrence of the external cause

== ENCOUNTER → 2019-11-04 | Outpatient (CLI) | payer MEDICARE | LOC: YCHH 09:12 | PROVIDERS: ATTEND Family Medicine | DX: E11.620 Type 2 diabetes mellitus with diabetic dermatitis (principal); D63.1 Anemia in chronic kidney disease; N18.9 Chronic kidney disease, unspecified; I12.9 Hypertensive chronic kidney disease with stage 1 through stage 4 chronic kidney disease, or unspecified chronic kidney disease; E78.5 Hyperlipidemia, unspecified ==

== ENCOUNTER → 2020-01-26 | Outpatient (CLI) | payer MEDICARE | LOC: YCHH 08:58 | PROVIDERS: ATTEND Family Medicine | DX: G35 Multiple sclerosis (principal); E11.620 Type 2 diabetes mellitus with diabetic dermatitis; D63.1 Anemia in chronic kidney disease ==

== ENCOUNTER 2020-02-13 11:54 | Inpatient (IN) | payer MEDICARE, OTHER ==
[2020-02-13] MEDS ORDERED: SODIUM CHLORIDE 0.9% (FLUSH) 10 ML SYG IV PRN ×2 (12:04→19:56)
--- NOTE | 2020-02-13 12:07 | ED.PDOC ---
History of Present Illness - General Chief Complaint: Neuro Symptoms/Deficits Time Seen by Provider: 02/13/20 12:03 Source: patient, EMS, skilled nursing records - History of Present Illness Initial Comments: 69-year-old female with PMH of hypertension, diabetes, dementia who is brought in by EMS from [facility] with chief complaint of altered mental status. Given history of dementia and altered mental status, patient is very poor historian. She is awake and alert and able to answer questions upon arrival. She does not know why she is here. She is unable to tell me the date/month/year. She is without any complaints. Specifically denies any chest pain, abdominal pain, nausea, dyspnea, fevers, chills, sore throat. EMS states that the skilled nursing says that she has been acting more altered than usual since this morning. She also was running a low-grade fever of 99.5. She was slightly tachycardic and was begun on a 1 L normal saline bolus in route. She reportedly tested negative for COVID-19 on 02/08/2020. Allergies/Adverse Reactions: Allergies Penicillin G Allergy (Verified 02/13/20 12:14) Home Medications: Ambulatory Orders Aspirin [Baby Aspirin] 81 mg PO QD 06/20/14 Calcium Carbonate-Vitamin D [Calcium 600+D 600-400 mg-Unit] 1 tab PO BID 06/20/14 Lisinopril 10 mg PO DAILY 06/20/14 Atorvastatin Calcium [Lipitor] 10 mg PO DAILY 01/08/16 Cetirizine HCl [Zyrtec] 10 mg PO DAILY 01/08/16 Oxybutynin Chloride 5 mg PO BID 01/08/16 Alendronate Sodium [Fosamax] 70 mg PO WKLY 08/07/17 Nystatin Powder 15 gm TOP BID PRN 08/07/17 QUEtiapine FUMARATE [Seroquel] 25 mg PO BEDTIME #30 tab 08/12/17 Ferrous Gluconate 324 mg PO DAILY 07/13/18 Fluoxetine HCl [PROzac] 40 mg PO DAILY 07/13/18 Methylcellulose (Laxative) [Citrucel] 500 mg PO DAILY 07/13/18 Multiple Vitamins W/ Minerals [Multivitamin Adults] 1 tab PO DAILY 07/13/18 Review of Systems - Review of Systems Review of Systems: 02/13/20 12:07 As per HPI All other Systems: Reviewed and Negative Past Medical History (General) - Patient Medical History Hx Seizures: No Hx Stroke: No Hx Dementia: No Hx Asthma: No Hx of COPD: No Hx Cardiac Disorders: No Hx Congestive Heart Failure: No Hx Pacemaker: No Hx Hypertension: Yes Hx Thyroid Disease: No Hx Diabetes: Yes Hx Gastroesophageal Reflux: No Hx Renal Disease: No Hx Cancer: No Hx of HIV: No Hx Hepatitis C: No Hx MRSA: Yes MRSA Source:: Wound - Vaccination History Hx Tetanus, Diphtheria Vaccination: Yes Hx Influenza Vaccination: Yes Hx Pneumococcal Vaccination: Yes - Social History Hx Tobacco Use: No Hx Chewing Tobacco Use: No Hx Alcohol Use: No Hx Substance Use: No Hx Substance Use Treatment: No Hx Depression: No Hx Physical Abuse: No Hx Emotional Abuse: No Hx Suspected Abuse: No - Female History Patient : No Family Medical History - Family History Mother Name: Harriett Byrd Age (years): 86 Living Status: Still Living Hx Family Asthma: No Hx Family Congestive Heart Failure: No Hx Family Hypertension: Yes - Father Hx Family Stroke: No Hx Cardiac Disease: Yes - Father Hx Family Diabetes: Yes - maternal grandmother and father Hx Family Cancer: Yes - mother colon, pt uterine Hx Family;Other: Azheimers Dementia-mom Physical Exam - Physical Exam General Appearance: Alert, Comfortable, No apparent distress Eye Exam: bilateral normal Ears, Nose, Throat: hearing grossly normal, normal ENT inspection, normal pharynx Neck: non-tender, full range of motion, supple, normal inspection Respiratory: lungs clear, normal breath sounds, no respiratory distress, no accessory muscle use Cardiovascular/Chest: normal peripheral pulses, no edema, no gallop, no JVD, no murmur, tachycardia Peripheral Pulses: radial,right: 2+, radial,left: 2+ Gastrointestinal/Abdominal: non tender, soft, no organomegaly Back Exam: normal inspection, no CVA tenderness, no vertebral tenderness Extremity: normal range of motion, non-tender, normal inspection, no pedal edema, no calf tenderness, normal capillary refill, pelvis stable Neurologic: vice president quality improvement II-XII nml as tested, no motor/sensory deficits, alert, normal mood/affect, other - Not oriented to date/month/year. No focal neurological deficits noted. Skin Exam: normal color, warm/dry, other - x2 stage III sacral decubitus ulcers noted. Progress - Progress Progress: 02/13/20 12:08 Altered mental status -Consider infection, UTI, COVID-19, dehydration, metabolic derangement, ACS, pneumonia, other. -Patient tachycardic but otherwise stable upon ED arrival, no acute distress -Obtain blood work, UA, COVID-19 swab, strep, cardiac work-up, continue IV fluids and telemetry monitoring. 02/13/20 16:09 -Patient was noted to have intermittent episodes of hypotension. Seems to have resolved with readjustment of the blood pressure cuff and 2 L normal saline bolus in the ED. Her labs were significant for hemoglobin of 7.5. Other chronic findings of CKD noted. I did a bedside digital rectal exam which revealed light-colored scant soft brown stool in the rectal vault along with bulging nonbleeding internal hemorrhoid. The sample was sent for occult blood testing which is still pending. The patient is negative for COVID-19. Given her worsening anemia from prior baseline, I did obtain CT imaging of the chest, abdomen, and pelvis to search for possible sources of occult hemorrhage. CT imaging revealed bilateral nonspecific groundglass opacities in the lungs but was otherwise unremarkable for acute processes. The patient does have 2 stage III sacral decubitus ulcers noted on her exam, 1 of which does have slow bleeding which stops with compression pressure dressing. I spoke with Dr. March, general surgery, regarding the patient and possible occult GI hemorrha ging as cause of her anemia. We both feel likely this is a chronic anemia. Will hold any blood transfusion at this time given hemoglobin greater than 7. He is happy to see the patient in consultation for possible endoscopy once she is admitted to the hospital. I then spoke with Mickey Stewart who accepts the patient to his service for further monitoring for altered mental status, anemia, and dehydration. 02/13/20 16:51 -Fecal occult blood testing is negative. 02/13/20 18:00 -Respiratory panel is negative, including COVID-19. Rachid Mancilla MD Billing #[id number] 02/13/20 12:04 Sodium Chloride 0.9% (Flush) [Saline Flush Syringe] 10 ml IV PRN PRN URINALYSIS Stat 02/13/20 12:15 EKG STAT 02/13/20 13:08 STREP A SCREEN CULTURE Stat 02/13/20 15:13 Catheter:Parada QSHIFT 02/14/20 09:00 Pulse Ox Daily Laboratory Results - last 24 hr 02/13/20 02/13/20 02/13/20 12:20 12:20 12:20 WBC 4.3 L RBC 2.17 L Hgb 7.5 L* Hct 22.0 L MCV 101.2 H MCH 34.5 H MCHC 34.1 RDW 15.6 H Plt Count 142 MPV 8.8 Absolute Neuts (auto) 3.10 Absolute Lymphs (auto) 0.10 L Absolute Monos (auto) 1.00 H Absolute Eos (auto) 0.20 Absolute Basos (auto) 0.00 Neutrophils % 71.2 Lymphocytes % 2.3 L Monocytes % 22.5 H Eosinophils % 3.7 Basophils % 0.3 Sodium 133 L Potassium 3.5 L Chloride 103 Carbon Dioxide 21 Anion Gap 12.5 BUN 21 H Creatinine 2.12 H BUN/Creatinine Ratio 9.9 L Random Glucose 143 H Serum Osmolality 271.8 L Lactic Acid Calcium 9.2 Total Bilirubin 0.8 AST 26 ALT 14 Alkaline Phosphatase 69 Troponin I < 0.02 B-Natriuretic Peptide 78.9 Serum Total Protein 6.2 L Albumin 2.6 L Globulin 3.6 H Albumin/Globulin Ratio 0.7 L Stool Occult Blood Group A Strep Rapid 02/13/20 02/13/20 02/13/20 12:20 13:08 15:00 WBC RBC Hgb Hct MCV MCH MCHC RDW Plt Count MPV Absolute Neuts (auto) Absolute Lymphs (auto) Absolute Monos (auto) Absolute Eos (auto) Absolute Basos (auto) Neutrophils % Lymphocytes % Monocytes % Eosinophils % Basophils % Sodium Potassium Chloride Carbon Dioxide Anion Gap BUN Creatinine BUN/Creatinine Ratio Random Glucose Serum Osmolality Lactic Acid 1.4 Calcium Total Bilirubin AST ALT Alkaline Phosphatase Troponin I B-Natriuretic Peptide Serum Total Protein Albumin Globulin Albumin/Globulin Ratio Stool Occult Blood Negative Group A Strep Rapid Negative - EKG/XRAY/CT EKG: Sinus - Sinus arrhythmia, heart rate 100, no ST elevations noted, Q waves noted in anterior and inferior leads likely indicative of prior HI, axis normal, intervals normal, appears largely unchanged from 08/07/2017 EKG XRAY: chest - Streaky bibasilar atelectasis per my read, no other acute processes Departure - Departure Clinical Impression: Anemia Qualifiers: Anemia type: unspecified type Qualified Code(s): D64.9 - Anemia, unspecified Low blood pressure Qualifiers: Hypotension type: unspecified hypotension type Qualified Code(s): I95.9 - Hypotension, unspecified Altered mental status Qualifiers: Altered mental status type: unspecified Qualified Code(s): R41.82 - Altered mental status, unspecified Time of Disposition: 16:05 Disposition: Admit Patient Condition: Fair Home Medications: Ambulatory Orders Aspirin [Baby Aspirin] 81 mg PO QD 06/20/14 Calcium Carbonate-Vitamin D [Calcium 600+D 600-400 mg-Unit] 1 tab PO BID 06/20/14 Lisinopril 10 mg PO DAILY 06/20/14 Atorvastatin Calcium [Lipitor] 10 mg PO DAILY 01/08/16 Cetirizine HCl [Zyrtec] 10 mg PO DAILY 01/08/16 Oxybutynin Chloride 5 mg PO BID 01/08/16 Alendronate Sodium [Fosamax] 70 mg PO WKLY 08/07/17 Nystatin Powder 15 gm TOP BID PRN 08/07/17 QUEtiapine FUMARATE [Seroquel] 25 mg PO BEDTIME #30 tab 08/12/17 Ferrous Gluconate 324 mg PO DAILY 07/13/18 Fluoxetine HCl [PROzac] 40 mg PO DAILY 07/13/18 Methylcellulose (Laxative) [Citrucel] 500 mg PO DAILY 07/13/18 Multiple Vitamins W/ Minerals [Multivitamin Adults] 1 tab PO DAILY 07/13/18 Decision To Admit - Decistion To Admit Decision to Admit Reason: Admit from ER Decision to Admit Date: 02/13/20 Decision to Admit Time: 16:05
--- NOTE | 2020-02-13 12:49 | RAD ---
EXAM: Chest,1 View CLINICAL INDICATION: Altered mental status, fever COMPARISON: 08/07/2017 FINDINGS: A single view of the chest was obtained. The heart size is normal. The pulmonary vascularity is unremarkable. There is mild streaky atelectasis in both lung bases. The lungs are otherwise clear. There is no pneumothorax or pleural effusion. IMPRESSION: Mild bibasilar atelectasis. Otherwise, no acute process in the chest. Electronically signed by: Karlos Cam MD 02/13/2020 12:47 PM CDT
--- NOTE | 2020-02-13 12:51 | CT ---
EXAM: CT HEAD WITHOUT CONTRAST HISTORY: altered level of awareness. TECHNIQUE: CT of the head was obtained without contrast. The CT exam was performed using one or more of the following dose reduction techniques: Automated exposure control, adjustment of the mA and/or kV according to patient size, and/or use of iterative reconstruction technique. COMPARISON: Head CT from 01/25/2019. FINDINGS: Parenchyma: No mass, acute hemorrhage or CT evidence of large acute vascular territory insult. Small chronic lacunar infarct in the right thalamus anteriorly. Mild, Stable periventricular and deep white matter hypodensities are likely due to chronic small vessel ischemic changes. Ventricles: Normal in size and configuration. No hydrocephalus. Extra-axial spaces: No masses or fluid collections. Dural sinuses: No abnormal densities. Paranasal sinuses/Mastoid air cells: Clear. Scalp/Skull: No abnormalities. IMPRESSION: 1. No acute intracranial abnormality. 2. Stable chronic small vessel ischemic changes and chronic lacunar infarct in the right thalamus. Electronically signed by: Butch Patrick MD 02/13/2020 12:49 PM CDT
[2020-02-13] MEDS ORDERED: SODIUM CHLORIDE 0.9% 1000ML 1,000 ML ONE (13:04)
[2020-02-13] MEDS ORDERED: SODIUM CHLORIDE 0.9% 1000ML 1,000 ML IVS ONE (13:06)
--- NOTE | 2020-02-13 15:16 | CT ---
EXAMINATION: CT chest, abdomen, and pelvis without contrast. INDICATION: Acute anemia. Hypotension. COMPARISON: CT chest from January 23, [address] pelvis from August 24, [address] abdomen and pelvis from July 16, 2019 TECHNIQUE: Axial CT scan of the chest, abdomen, and pelvis was obtained without intravenous contrast administration. Coronal and sagittal reformats were provided. This CT exam was performed using one or more of the following dose reduction techniques: Automated exposure control, Adjustment of the mA and/or kV according to patient size, Use of iterative reconstruction technique FINDINGS: The lack of intravenous contrast somewhat limits evaluation. PULMONARY ARTERY: Mildly enlarged measuring 3.2 cm. HEART: Heart is enlarged. THORACIC AORTA: There is mild aneurysmal dilation of the ascending thoracic aorta measuring up to 4.3 cm. There are scattered atheromatous changes present. CHEST WALL: Normal THYROID: No thyroid nodules. THORACIC LYMPH NODES: No pathologically enlarged axillary lymph nodes. Evaluation of mediastinal and hilar lymph nodes is limited due to the lack of intravenous contrast. However, none appear grossly enlarged. PRIMARY AIRWAYS: Primary airways are patent. LUNGS: There are scattered groundglass airspace opacities throughout both lungs. There some intralobular septal thickening noted at the lung apices. There are minimal dependent atelectatic changes. No suspicious nodules. CHEST OSSEOUS STRUCTURES: Moderate compression deformity of T11 which is age-indeterminate. Correlation with point tenderness is recommended. OTHER THORACIC FINDINGS: N/A LIVER: No intrahepatic lesions. No intrahepatic biliary ductal dilation. GALLBLADDER AND CBD: Cholecystectomy changes. Common bile duct is mildly prominent measuring 7 mm, however probably normal given patient's age and prior cholecystectomy. PANCREAS: Normal. SPLEEN: Not enlarged. ADRENAL GLANDS: Normal. KIDNEYS AND URETERS: Kidneys appear somewhat atrophic. There is no hydronephrosis or hydroureter. URINARY BLADDER: Normal PELVIS: Hysterectomy changes. No free fluid in the pelvis. BOWEL: Gas and stool throughout the colon. Normal appendix No dilated loops of small bowel. No obstruction. Moderate hiatus hernia. AORTA AND VASCULATURE: Scattered atheromatous changes throughout the abdominal aorta. No aneurysm ABDOMINAL AND PELVIC LYMPH NODES: No bulky lymphadenopathy. ABDOMINAL WALL: Normal. MESENTERY/ASCITES: Normal. OTHER ABDOMINAL AND PELVIC FINDINGS: N/A ABDOMINAL OSSEOUS STRUCTURES: There is extensive levoconvex curvature of the lumbar spine. IMPRESSION: 1. Mild prominence of the pulmonary artery. Correlate for pulmonary artery hypertension. 2. Aneurysmal dilation of the ascending thoracic aorta measuring up to 4.3 cm. 3. There are scattered groundglass airspace opacities noted throughout the lungs. These are nonspecific in nature and could be seen in the setting of pulmonary edema or atypical infections. Chronic interstitial lung disease is also a consideration. 4. Age-indeterminate compression deformity of T11. Correlation with point tenderness is recommended. If necessary, MRI can be obtained for more accurate dating. 5. No acute inflammatory process in the abdomen or pelvis. Electronically signed by: Alessandra Wilson MD 02/13/2020 3:14 PM CDT
--- NOTE | 2020-02-13 18:35 | HP ---
SUPERVISING PHYSICIAN: Jerad Olson MD CHIEF COMPLAINT: Altered mental status. HISTORY OF PRESENT ILLNESS: Ms. Byrd is a 69-year-old female patient that resides at [facility]. She has a past medical history of hypertension, diabetes and dementia. She was brought from [facility] with some noted change in mental status. She is not very verbal and does not actually give much information. Therefore, the majority of her history is obtained from past admission as she, again, cannot provide any meaningful information. EMS states that the [facility] endorsed that she had been acting a little bit more altered than usual this morning and also possibly running a low-graft fever of 99.5. She was tested for COVID-19 on 02/08/20 and found to be negative. She was tested once again here in the ER and found to be negative. Her laboratory studies did show she had a significant anemia with hemoglobin 7.5 and hematocrit 22.0. Past medical records show that she has had severe iron deficiency in the past and has been on iron therapy at some point. Rectal exam was done by the ER physician and was negative for stool occult blood. The patient was hemodynamically stable with a temperature of 98.3, pulse 109, blood pressure 102/44 before fluids. With fluids, blood pressure 131/72, respirations 22. She initially was saturating 88% on room air, but improved fairly quickly to 94% and maintaining 97% on 2 liters SPO2. Additional laboratory studies showed she was mildly hyponatremic with sodium 133, potassium down to 3.5. Creatinine 2.12. Review of her creatinine levels show she has had elevated creatinines up to 3.6. Lactic acid normal at 1.4, glucose 143. Liver functions were all within normal limits. Troponin less than 0.02. Urinalysis showed just 100 of protein, otherwise within normal limits. Group A strep was negative. On exam in the ER, it was noted that she had a Stage 3 decubitus ulcer on her coccyx region. It does not look to be that infected, but it is certainly a source of infection. Given the fact that the patient has had a change in mental status and cannot provide much information and no true source of infection was found, the ER physician did a CT of the abdomen and pelvis without contrast and per radiologic interpretation there was no acute inflammatory process seen in the abdomen or pelvis. In the lungs, there was note of some scattered ground glass airspace opacities which could be some pulmonary or atypical infection or chronic interstitial lung disease. She was also noted to have aneurysmal dilation of the ascending thoracic aorta measuring 4.3 cm and a mild prominence of the pulmonary arteries which could correlate to arterial hypertension. There was also incidental finding of age-indeterminate compression fracture of T11. Given the reported change in mental status and no true findings of infection, but given that she has significantly low H&H which could be causing some of her issues, with no signs of acute loss, she is going to be placed in observation overnight for initiation of treatment for the decubitus ulcer to her coccyx region and close monitoring of her H&H. She was placed in observation in stable condition. PAST MEDICAL HISTORY: Obtained from previous admissions. 1. Hypertension. 2. Hyperlipidemia. 3. Anxiety and depression on Effexor. 4. Lumbar radiculopathy. 5. Morbid obesity. 6. Type 2 diabetes mellitus on oral therapy. 7. Chronic venous stasis dermatitis at some point. 8. Osteoporosis previously on Fosamax. PAST SURGICAL HISTORY: 1. Cholecystectomy. 2. Hysterectomy. 3. Dilatation and curettage. 4. Colonoscopy. MEDICATIONS: Awaiting list from [facility] for verification. ALLERGIES: PENICILLIN. FAMILY HISTORY: Father from unknown causes. Mother had colon cancer. SOCIAL HISTORY: The patient is a resident at [facility]. She is single. She has no history of tobacco or alcohol usage recently, but in the past has had history of social drinking. REVIEW OF SYSTEMS: Unable to fully assess due to the patient's mental status. PHYSICAL EXAMINATION: VITAL SIGNS: On admission, temperature 98.3, pulse 109, blood pressure 102/44, respirations 20, initial saturation 88% on room air, but with oxygen 2 liters via nasal cannula at 97%. GENERAL: The patient seems to be in no acute distress. She is resting comfortably at time of exam. She is not very verbal. She does seem to shake her yes or no to some simple questions. There is no obvious deficit noted. HEENT: Tympanic membranes clear bilaterally. Oropharynx is pink, mucous membranes dry. NECK: Supple, nontender with full range of motion. No jugular venous distention noted. RESPIRATORY: Lung sounds are clear to auscultation bilaterally without any rhonchi, wheezes or rales. CARDIOVASCULAR: Regular rate and rhythm without any appreciable murmurs, gallops, or rubs. ABDOMEN: Soft, obese, nontender. Positive bowel sounds. BACK: No CVA or vertebral tenderness. On her coccyx region, she does have a Stage 3 decubitus ulcer. There are two areas that measure about the size of a quarter. There does not seem to be any purulent drainage, but they are very reddened. She has had some obvious chronic decubitus at some point as there are multiple scars and healing areas. EXTREMITIES: There is no cyanosis, clubbing or edema. NEUROLOGIC: Cranial nerves II-XII are grossly intact. There is no obvious deficit, but she is not very conversive and does not offer any information, but will answer some yes/no questions. SKIN: There is a Stage 3 decubitus ulcer on the sacral region and no some obvious old areas of chronic venous stasis ulcers to both lower extremities, but no obvious lesions, rashes or sores noted other than what was mentioned. Otherwise, warm, pink and dry. LABORATORY: CBC showed white count 4,300, hemoglobin 7.5, hematocrit 22.0. RBC indices indicate microcytosis with differential without a left shift. Coagulation studies show slightly elevated PT 13.1, PTT 24.7. Chemistries showed sodium 133, potassium 3.5, BUN 21, creatinine 2.12, glucose 143, lactic acid normal at 1.4. Liver functions all within normal limits. Troponin less than 0.02. Urinalysis within normal limits. Stool occult blood was negative. Group A strep was negative. Respiratory panel was negative for all respiratory organisms tested including COVID-19 and group A strep culture is pending. RADIOLOGY: CT of the head on admission which shows no acute intracranial abnormalities, stable chronic small vessel ischemic changes and chronic lacunar infarcts in the right thalamus. Chest x-ray initially per radiologic interpretation shows mild basilar atelectasis, otherwise no acute findings. She then had CT of the abdomen and pelvis as well as chest CT and per radiologic interpretation showed mild prominence of the pulmonary arteries with some aneurysmal dilation of the ascending thoracic aorta measuring 4.3 cm. There was note of scattered ground glass airspace opacities throughout the lungs which are nonspecific in nature. There is also note of an age-indeterminate compression deformity of T11 and no other acute inflammatory processes were seen in the abdomen and pelvis per radiologic interpretation. 12-lead EKG showed a sinus arrhythmia with a heart of 100. No obvious ST elevation or T-wave inversions. There was note of a Q-wave noted in anterior inferior leads. Otherwise, unchanged compared to 08/07/17. ASSESSMENT: 1. Acute symptomatic anemia, etiology uncertain, with the patient being mildly hypotensive, tachycardic and some acute mental status change on admission with history of iron deficiency with no acute evidence of bleeding. 2. Mild electrolyte imbalance with hyponatremia at 133. 3. Acute on chronic renal failure with probably prerenal azotemia secondary to the hypovolemia from anemia. 4. Stage 3 decubitus ulcer to the sacral region with concerns for early infection. 5. History of hypertension. 6. History of anxiety and depression. 7. Chronic lumbar radiculopathy. 8. Morbid obesity. 9. Type 2 diabetes mellitus on oral therapy. 10. History of chronic venous stasis dermatitis. 11. Osteoporosis previously on Fosamax. PLAN: Ms. Byrd is going to be placed in observation overnight for some low fluids and concerns for dehydration. She will be started on vancomycin initial loading dose and then pharmacy protocol for concerns for developing infection in sacral decubitus ulcer. She will be on DVT prophylaxis per protocol. She will be on sliding scale insulin per protocol and 1800 calorie ADA diet. We will resume her home medications as appropriate to her care once those have been updated and verified. She did test negative for COVID-19. On assessment, she does not really have any evidence of pneumonia, but we will go ahead and start her on some Rocephin along with the vancomycin for treatment of the sacral decubitus ulcer. I did talk to Dr. Mcneill about consulting to see if he will look at the decubitus ulcer to see if he sees any reason to debride it. I did not do a culture on it, it was dressed in the ER prior to admission. I believe she has had a history of MRSA in the past. Again, we will place her in observation. I anticipate her length of stay to be 1 or 2 days. With fluids and antibiotics, hopefully we will be able to transition her back to the outpatient management. Until then, we will continue to monitor and treat as needed. [facility][id number] [facility]
[2020-02-13] MEDS ORDERED: ONDANSETRON INJ 4 MG/2 ML VIAL IV PRN (19:56)
[2020-02-13] MEDS ORDERED: ALUM & MAG HYDROX-SIMETHICONE 30 ML UD PO PRN (19:56)
[2020-02-13] MEDS ORDERED: MAGNESIUM HYDROXIDE 30 ML UD PO PRN (19:56)
[2020-02-13] MEDS ORDERED: VANCOMYCIN PER PHARMACY IVPB SCH (20:30)
[2020-02-13] MEDS ORDERED: VANCOMYCIN HCL INJ 1,500 MG in SODIUM CHLORIDE 0.9% 500ML 500 ML IVPB ONE (21:00)
[2020-02-13] MEDS ORDERED: cefTRIAXone SODIUM 1 GM VIAL ONE (21:11)
[2020-02-13] MEDS ORDERED: VANCOMYCIN HCL INJ 500 MG VIAL ONE (21:11)
[2020-02-13] MEDS ORDERED: VANCOMYCIN HCL INJ 1,000 MG VIAL IVPB ONE (21:11)
[2020-02-13] MEDS ORDERED: AZITHROMYCIN IV 500 MG VIAL IVPB ONE (21:11)
[2020-02-13] MEDS ORDERED: SODIUM CHLORIDE 0.9% 250ML 250 ML ONE (21:12)
[2020-02-13] MEDS ORDERED: SODIUM CHLORIDE 0.9% 500ML 500 ML ONE (21:12)
[2020-02-13] MEDS ORDERED: SODIUM CHL 0.9% 50ML MIN-BAG+ 50 ML IVPB ONE (21:12)
[2020-02-13] MEDS: KCL 20 MEQ/NS 1,000 ML IVS PRN (21:22)
[2020-02-13] MEDS: cefTRIAXone SODIUM 1 GM in SODIUM CHL 0.9% 50ML MIN-BAG+ 50 ML IVPB SCH (21:23)
[2020-02-13] MEDS: IV SET AND CAP CHANGE INJ INJ SCH (21:56)
[2020-02-13] MEDS ORDERED: DEXTROSE 50% 25 GM/50 ML SYG IV PRN (22:19)
[2020-02-13] MEDS ORDERED: GLUCAGON INJ 1 MG VIAL SUBCU PRN (22:19)
[2020-02-13] MEDS: AZITHROMYCIN IV 500 MG in SODIUM CHLORIDE 0.9% 250ML 250 ML IVPB SCH (23:18)
[2020-02-14] MEDS: INSULIN LISPRO 100 UNITS/ML PEN SUBCU SCH ×4 (07:17→20:57)
--- NOTE | 2020-02-14 08:08 | CONS ---
DATE OF CONSULTATION: 02/13/20 REASON FOR CONSULTATION: Sacral decubitus ulcer and anemia. HISTORY OF PRESENT ILLNESS: This is a 69-year-old woman with a history of dementia brought by EMS from [facility] with altered mental status. She has a history of dementia and is a very poor historian, but at this time, she is awake, alert and oriented x2. She recalls that she has had a sacral decubitus ulcer for quite some time. It does not sound like she has had any blood in her stool, but reportedly Hemoccult was negative and rectal exam normal but for hemorrhoids, no acute blood. Upon history, the sacral decubitus ulcer has oozed a little bit, but no sign of any active bleeding. She has no complaints at this time, no headache, no shortness of breath, no chest pain, no abdominal pain. She does not complain of pain at the ulcer and does not give a history of black or bloody stools or diarrhea, but her catia designer said she had a greater level of altered consciousness. PAST MEDICAL HISTORY: 1. Diabetes. 2. Hypertension. 3. Dementia. ALLERGIES: PENICILLIN. MEDICATIONS: 1. Aspirin. 2. Lisinopril. 3. Statin. 4. Cetirizine. 5. Oxybutynin. 6. Alendronate. 7. Seroquel. FAMILY HISTORY: Hypertension, cardiac disease, diabetes. Mother had colon cancer per ED H&P. Additional past medical history unknown at this time due to her being a poor historian. REVIEW OF SYSTEMS: As above. Otherwise, 12-point review of systems has not been revealing. PHYSICAL EXAMINATION: VITAL SIGNS: Afebrile, 97.4. Heart rate in the 80s. She as in the 100s on admission. She did get some fluids. Saturation 94% on room air. CHEST: Lungs care clear. HEART: Regular. ABDOMEN: Soft and nontender. On examination of the sacral decubitus ulcer, it is bilateral in the low sacrum. There is one area that looks potentially ischemic. There is no obvious ischemia or foul smell. No drainage. There is a little bit of oozing of blood around the edges. Again, this area is questionable. It may benefit from debridement. We will evaluate it again tomorrow. EXTREMITIES: No edema. LABORATORY: White count 4, hematocrit 22, platelet count 142. There is a report that a year ago hemoglobin was 10. BMP: Sodium 133, potassium 3.5, BUN 21, creatinine 2.0, lactate 1.4, albumin 2.6. Urinalysis shows no evidence of acute infection. Stool occult blood is negative. Rapid strep is negative. IMAGING: Chest x-ray in the ER just showed atelectasis, no acute process. CT of her head is read as no acute abnormality, chronic lacunar infarct in the right thalamus. CT of the abdomen and pelvis impression shows ascending thoracic aorta aneurysm 4.3 cm, ground glass appearances throughout the lungs, T11 compression, otherwise abdominal scan is normal with no evidence of mass or acute findings. Chest CT includes the above. IMPRESSION/RECOMMENDATION: 1. This is a 69-year-old woman with a history of dementia, hypertension, diabetes with a chronic sacral decubitus ulcer. She told me she does walk, but the nursing reported history, it does not appear that she is ambulatory. Her sacral decubitus ulcer may need debridement. I will reevaluate that tomorrow. 2. Anemia. We will get appropriate anemia workup. There is no evidence of acute or active bleeding at this time. The patient is hemodynamically stable with no significant coronary disease. I do not know that a transfusion is required at this time, but we will evaluate and possibly consider an EGD and colonoscopy. I would like to get a hold of the family and her primary care physician to see if this workup is desired given the desires if we were to find anything that needed surgical therapy and what her long-term plan is given her current condition and of course the family's and the patient's desire. Thank you for asking me to evaluate Ms. Byrd. [facility][id number] [facility]
[2020-02-14] MEDS: KCL 20 MEQ/NS 1,000 ML IVS PRN ×2 (10:21→23:37)
[2020-02-14] MEDS ORDERED: VANCOMYCIN HCL INJ 1,000 MG in SODIUM CHLORIDE 0.9% 250ML 250 ML IVPB SCH (17:00)
[2020-02-14] MEDS: RIVASTIGMINE TARTRATE 1.5 MG PO SCH (18:24)
[2020-02-14] MEDS ORDERED: OXYBUTYNIN CL 5 MG TAB ONE (20:07)
[2020-02-14] MEDS ORDERED: QUEtiapine FUMARATE 100 MG TAB ONE (20:07)
[2020-02-14] MEDS: cefTRIAXone SODIUM 1 GM in SODIUM CHL 0.9% 50ML MIN-BAG+ 50 ML IVPB SCH (20:13)
[2020-02-14] MEDS: ACETAMINOPHEN 325 MG TAB PO PRN (20:15)
[2020-02-14] MEDS: ENOXAPARIN SODIUM 40 MG/0.4 ML SYG SUBCU SCH (20:16)
[2020-02-14] MEDS: AZITHROMYCIN IV 500 MG in SODIUM CHLORIDE 0.9% 250ML 250 ML IVPB SCH (20:46)
[2020-02-14] MEDS ORDERED: [UNRECOGNIZED DRUG - OTHER] PO SCH (21:00)
[2020-02-14] MEDS ORDERED: OXYBUTYNIN CHLORIDE 5 MG PO SCH (21:00)
[2020-02-14] MEDS ORDERED: CALCIUM CARBONATE VITAMIN D PO SCH (21:00)
[2020-02-14] MEDS ORDERED: QUEtiapine FUMARATE 25 MG TAB PO SCH (21:00)
[2020-02-15] MEDS ORDERED: OXYBUTYNIN CL 5 MG TAB ONE (07:36)
[2020-02-15] MEDS ORDERED: FLUoxetine HCL 10 MG CAP PO ONE (07:36)
[2020-02-15] MEDS ORDERED: LISINOPRIL 10 MG TAB ONE (07:37)
[2020-02-15] MEDS: INSULIN LISPRO 100 UNITS/ML PEN SUBCU SCH ×4 (07:44→21:12)
[2020-02-15] MEDS: OXYBUTYNIN CL 5 MG TAB PO SCH ×2 (08:29→21:10)
[2020-02-15] MEDS: LISINOPRIL 10 MG TAB PO SCH (08:29)
[2020-02-15] MEDS: CETIRIZINE HCL 10 MG TAB PO SCH (08:29)
[2020-02-15] MEDS: ALLOPURINOL 100 MG TAB PO SCH (08:30)
[2020-02-15] MEDS: METHYLCELLULOSE 500 MG PO SCH (08:31)
[2020-02-15] MEDS: POLYETHYLENE GLYCOL 3350 17 GM PCKT PO SCH (08:41)
[2020-02-15] MEDS: FLUoxetine HCL 20 MG CAP PO SCH (08:42)
[2020-02-15] MEDS: FERROUS GLUCONATE 325 MG TAB PO SCH (08:42)
[2020-02-15] MEDS: CALCIUM CARBONATE-VITAMIN D 500 MG TAB PO SCH ×2 (08:42→21:11)
[2020-02-15] MEDS: RIVASTIGMINE TARTRATE 1.5 MG PO SCH (09:09)
--- NOTE | 2020-02-15 11:46 | RAD ---
EXAM DESCRIPTION: Chest,1 View CLINICAL HISTORY: 69 years Female, Follow up chest x-ray. COMPARISON: Previous chest x-ray February 13, 2020, previous chest CT February 13, 2020 TECHNIQUE: AP portable chest. FINDINGS: Heart size is prominent with centrally increased pulmonary vascularity. Bilateral perihilar infiltrates or edema, denser than on previous study. Linear densities in the perihilar regions bilaterally with left paracardiac and left retrocardiac linear densities consistent with discoid atelectasis or linear scarring. No pulmonary mass or worrisome nodule. No pneumothorax or pleural effusion. Bones are unremarkable. IMPRESSION: Bilateral patchy pulmonary infiltrates. Prominent heart with centrally increased pulmonary vascularity. Electronically signed by: Robert Sofia MD 02/15/2020 11:45 AM CDT
[2020-02-15] MEDS: KCL 20 MEQ/NS 1,000 ML IVS PRN (11:49)
[2020-02-15] MEDS: IPRATROPIUM/ALBUTEROL 3 ML VIAL NEB SCH ×3 (12:05→20:05)
[2020-02-15] MEDS: cefTRIAXone SODIUM 1 GM in SODIUM CHL 0.9% 50ML MIN-BAG+ 50 ML IVPB SCH (19:46)
[2020-02-15] MEDS: ATORVASTATIN 10 MG TAB PO SCH (21:10)
[2020-02-15] MEDS: AZITHROMYCIN IV 500 MG in SODIUM CHLORIDE 0.9% 250ML 250 ML IVPB SCH (21:10)
[2020-02-15] MEDS: ENOXAPARIN SODIUM 40 MG/0.4 ML SYG SUBCU SCH (21:11)
[2020-02-15] MEDS: QUEtiapine FUMARATE 100 MG TAB PO SCH (21:11)
[2020-02-16] MEDS: KCL 20 MEQ/NS 1,000 ML IVS PRN ×2 (03:00→16:51)
[2020-02-16] MEDS: IPRATROPIUM/ALBUTEROL 3 ML VIAL NEB SCH ×4 (07:06→19:53)
[2020-02-16] MEDS ORDERED: FLUoxetine HCL 10 MG CAP PO ONE (07:43)
--- NOTE | 2020-02-16 08:26 | PN ---
SUPERVISING PHYSICIAN: Job Owen MD DATE: 02/14/20 SUBJECTIVE: The patient is feeling a little bit better today. She sounds a little bit wet cough when she is being assessed. She is having a little issue with some O2 saturations now. Where she had been maintaining on room air, she is now requiring a little oxygen. Without oxygen via nasal cannula, she does drop down according to nursing into the high 80s. OBJECTIVE: VITAL SIGNS: Temperature 98.1, pulse 72, blood pressure 112/73, saturation 90% on 2 liters nasal cannula and 88% on room air. GENERAL: The patient is resting comfortably. She is not very interactive, which is kind of her baseline level, but she will answer yes/no questions. She does not look to be in any distress. CHEST: Lung sounds today have a little bit of rhonchi heard which is up in the large airways. It does clear up a little bit when she coughs. She is diminished towards the bases. No rales or wheezing noted. HEART: Regular rate and rhythm. ABDOMEN: Obese, but soft. SKIN: She has a decubitus ulcer on the sacral region with a dressing in place. No obvious signs of infection. NEUROLOGIC: She is at baseline levels. No obvious deficits other than she does only answer yes/no questions and she does have an essential tremor which is normal for her. LABORATORY: Hemoglobin 7.6, hemoglobin 22.8, platelet count 135,000, differential without a left shift. Chemistries show electrolytes with potassium 3.4, but BUN is 19, creatinine 1.82. Blood sugars remaining stable. Iron 24, TIBC 152, iron saturation 15, ferritin normal at 127. MICROBIOLOGY: Group A strep culture pending. RADIOLOGY: No additional radiographic studies today. ASSESSMENT: 1. Acute symptomatic anemia, likely due to chronic iron deficiency anemia with no obvious signs of acute bleeding, exacerbated by probably underlying developing pneumonia. 2. Mild electrolyte imbalance with hyponatremia and hypokalemia, improving. 3. Acute on chronic renal failure due to prerenal azotemia secondary to the hypovolemia, showing some improvement. 4. Stage 3 decubitus ulcer to the sacral region, followed by Dr. Mcneill, with no obvious signs of infection at this point. 5. History of hypertension. 6. History of anxiety and depression. 7. Chronic lumbar radiculopathy. 8. Morbid obesity. 9. Type 2 diabetes mellitus on oral therapy. 10. History of chronic venous stasis dermatitis. 11. Osteoporosis previously on Fosamax. PLAN: We will continue with some low fluids overnight. Given that she is not really showing any signs of infection as far as the sacral area, we will take her off vancomycin, but we are going to leave her on treatment for underlying possible pneumonia with azithromycin and Rocephin. I will start her on aggressive pulmonary hygiene with breathing treatments. I anticipate probably another 24 to 48 hours. I was hoping to discharge her later today, however, with her desaturating and now showing some signs of pneumonia, I think she will benefit from another 24 to 48 hours of more aggressive treatment. Until the patient can transition to outpatient management, we will continue to follow along with Dr. Mcneill and continue to monitor and treat as needed. [facility][id number] [facility]
--- NOTE | 2020-02-16 08:33 | PN ---
SUPERVISING PHYSICIAN: Job Owen MD DATE: 02/15/20 SUBJECTIVE: Again, the patient is still maintaining some low O2 saturations on room air. We started aggressive treatment with bronchial hygiene and she is on antibiotics. She has been afebrile. Dr. Mcneill is following along with the sacral issue. They did call me this morning with H&H that was significantly lower than yesterday at 6.8 and 20.3, but I had them re-draw that and it was again around 7.3 and 21.6, which is down a little bit, but she did get some fluids last night. She is still not showing any signs of bleeding. OBJECTIVE: VITAL SIGNS: Temperature 98, pulse 99, blood pressure 119/71, respirations 20, saturation 92% on 2 liters nasal cannula and still high 80s on room air. GENERAL: The patient is resting comfortably. She is not very interactive, which is kind of her baseline level, but she will answer yes/no questions. She does not look to be in any distress. CHEST: Lung sounds today have a little bit of rhonchi heard which is up in the large airways. It does clear up a little bit when she coughs. She is diminished towards the bases. No rales or wheezing noted. HEART: Regular rate and rhythm. ABDOMEN: Obese, but soft. SKIN: She has a decubitus ulcer on the sacral region with a dressing in place. No obvious signs of infection. NEUROLOGIC: She is at baseline levels. No obvious deficits other than she does only answer yes/no questions and she does have an essential tremor which is normal for her. LABORATORY: Hemoglobin 7.3, hemoglobin 22.6. Chemistries now show potassium has normalized to 3.9. Chloride is a little elevated at 112, but her BUN is 19, creatinine down to 1.71, which is showing improvement. Blood sugars are ranging between 105 and 133. MICROBIOLOGY: Group A strep culture pending. RADIOLOGY: Repeat chest x-ray today shows bilateral patchy pulmonary infiltrates with some prominent heart and central increased pulmonary vascularity. Echocardiogram is pending. ASSESSMENT: 1. Acute symptomatic anemia, likely due to chronic iron deficiency anemia with no obvious signs of acute bleeding, exacerbated by probably underlying developing pneumonia. 2. Mild electrolyte imbalance with hyponatremia and hypokalemia, improving. 3. Acute on chronic renal failure due to prerenal azotemia secondary to the hypovolemia, showing some improvement. 4. Stage 3 decubitus ulcer to the sacral region, followed by Dr. Mcneill, with no obvious signs of infection at this point. 5. History of hypertension. 6. History of anxiety and depression. 7. Chronic lumbar radiculopathy. 8. Morbid obesity. 9. Type 2 diabetes mellitus on oral therapy. 10. History of chronic venous stasis dermatitis. 11. Osteoporosis previously on Fosamax. PLAN: We will continue current plan of care for close monitoring of her H&H and maintain for questionable pneumonia with Rocephin and azithromycin and aggressive pulmonary hygiene. She does reside at a halfway and she may need to go back on some oxygen. We will reassess that tomorrow. If she continues to show improvement clinically, I would anticipate we may be able to discharge her tomorrow. Until then, we will continue to monitor and treat as needed. #[id number] [facility]
[2020-02-16] MEDS: INSULIN LISPRO 100 UNITS/ML PEN SUBCU SCH ×4 (08:49→23:54)
[2020-02-16] MEDS: OXYBUTYNIN CL 5 MG TAB PO SCH ×2 (08:52→20:12)
[2020-02-16] MEDS: FERROUS GLUCONATE 325 MG TAB PO SCH (08:52)
[2020-02-16] MEDS: ALLOPURINOL 100 MG TAB PO SCH (08:52)
[2020-02-16] MEDS: CALCIUM CARBONATE-VITAMIN D 500 MG TAB PO SCH ×2 (08:52→20:12)
[2020-02-16] MEDS: CETIRIZINE HCL 10 MG TAB PO SCH (08:52)
[2020-02-16] MEDS: LISINOPRIL 10 MG TAB PO SCH (08:52)
[2020-02-16] MEDS: POLYETHYLENE GLYCOL 3350 17 GM PCKT PO SCH (08:52)
[2020-02-16] MEDS: METHYLCELLULOSE 500 MG PO SCH (08:58)
[2020-02-16] MEDS: RIVASTIGMINE TARTRATE 1.5 MG PO SCH (08:59)
[2020-02-16] MEDS ORDERED: diphenhydrAMINE HCL 50 MG/ML VIAL IV ONE ×2 (10:19→10:20)
[2020-02-16] MEDS ORDERED: FUROSEMIDE INJ 20 MG/2 ML VIAL IV ONE (10:19)
[2020-02-16] MEDS ORDERED: ACETAMINOPHEN 325 MG TAB PO ONE (10:20)
[2020-02-16] MEDS ORDERED: SODIUM CHLORIDE 0.9% 500ML 500 ML IVS SCH (10:30)
[2020-02-16] MEDS: FLUoxetine HCL 20 MG CAP PO SCH (12:29)
[2020-02-16] MEDS ORDERED: FLUoxetine HCL 20 MG CAP ONE (12:35)
--- NOTE | 2020-02-16 14:13 | PN ---
SUPERVISING PHYSICIAN: Job Owen MD DATE: 02/16/20 SUBJECTIVE: The patient does not have any complaints at this point. Her H&H did show a drop a little bit overnight. I did discuss with her primary care physician, Dr. Sanford, who wants to go ahead and give her 2 units of packed red blood cells with anticipation of discharging tomorrow. We will continue as an outpatient with iron infusions. She does remain afebrile. OBJECTIVE: VITAL SIGNS: She remains afebrile. GENERAL: The patient is resting comfortably. She is much more interactive today than she has been since admission. She does not appear to be in any distress. CHEST: Lung sounds essentially clear today, just a little diminished towards the bases. HEART: Regular rate and rhythm. ABDOMEN: Soft, nontender, positive bowel sounds. EXTREMITIES: Trace edema. NEUROLOGIC: She is alert and oriented x3. LABORATORY: Chemistry shows normal electrolytes. Creatinine is down to 1.49. Hemoglobin 6.9, hematocrit 3.4 with platelet count 140. Differential without a left shift today. RADIOLOGY: No additional radiographic studies today. She did have an echocardiogram done and per cardiology interpretation, Dr. Lott, she has a grade 1 diastolic dysfunction with ejection fraction 65-70%. ASSESSMENT: 1. Acute symptomatic anemia, secondary to chronic iron deficiency anemia, requiring transfusion of 2 units of packed red blood cells. 2. Community acquired pneumonia requiring IV antibiotics, exacerbated by #1. 3. Mild electrolyte imbalance with hyponatremia and hypokalemia, resolving. 4. Chronic renal failure due to prerenal azotemia secondary to hypovolemia from anemia, showing improvement. 5. Stage 3 decubitus ulcer to the sacral region, followed by Dr. Mcneill, with no obvious signs of infection at this point. 6. History of hypertension. 7. History of anxiety and depression. 8. Chronic lumbar radiculopathy. 9. Morbid obesity. 10.Type 2 diabetes mellitus on oral therapy. 11. History of chronic venous stasis dermatitis. 12. Osteoporosis previously on Fosamax. PLAN: I did talk with Dr. Sanford today. He wants to go ahead and transfuse 2 units of packed red blood cells today. I anticipate she will be able to discharge tomorrow. She will continue with treatment for the underlying pneumonia which is responding to treatment. She will need to followup with Dr. Sanford for arrangements for further workup of the iron deficiency anemia along with anticipate of iron infusions as an outpatient. Again, we will transfuse 2 units overnight and hopefully discharge tomorrow. Until then, we will continue to monitor and treat as needed. #[id number] [facility]
[2020-02-16] MEDS: COLLAGENASE OINT 30 GM TUBE TOP SCH (16:49)
[2020-02-16] MEDS: cefTRIAXone SODIUM 1 GM in SODIUM CHL 0.9% 50ML MIN-BAG+ 50 ML IVPB SCH (19:34)
[2020-02-16] MEDS ORDERED: diphenhydrAMINE HCL 50 MG/ML VIAL ONE (19:39)
[2020-02-16] MEDS ORDERED: FUROSEMIDE INJ 20 MG/2 ML VIAL ONE (19:39)
[2020-02-16] MEDS: IV SET AND CAP CHANGE INJ INJ SCH (20:06)
[2020-02-16] MEDS: AZITHROMYCIN IV 500 MG in SODIUM CHLORIDE 0.9% 250ML 250 ML IVPB SCH (20:06)
[2020-02-16] MEDS: QUEtiapine FUMARATE 100 MG TAB PO SCH (20:11)
[2020-02-16] MEDS: ENOXAPARIN SODIUM 40 MG/0.4 ML SYG SUBCU SCH (20:12)
[2020-02-16] MEDS: ATORVASTATIN 10 MG TAB PO SCH (20:12)
[2020-02-16] MEDS: ACETAMINOPHEN 325 MG TAB PO PRN (20:12)
[2020-02-17] MEDS: INSULIN LISPRO 100 UNITS/ML PEN SUBCU SCH ×4 (07:00→21:52)
[2020-02-17] MEDS: IPRATROPIUM/ALBUTEROL 3 ML VIAL NEB SCH ×4 (08:38→20:33)
[2020-02-17] MEDS: POLYETHYLENE GLYCOL 3350 17 GM PCKT PO SCH (09:47)
[2020-02-17] MEDS: CALCIUM CARBONATE-VITAMIN D 500 MG TAB PO SCH ×2 (09:47→21:50)
[2020-02-17] MEDS: FLUoxetine HCL 20 MG CAP PO SCH (09:47)
[2020-02-17] MEDS: LISINOPRIL 10 MG TAB PO SCH (09:47)
[2020-02-17] MEDS: ALLOPURINOL 100 MG TAB PO SCH (09:47)
[2020-02-17] MEDS: OXYBUTYNIN CL 5 MG TAB PO SCH ×2 (09:47→21:50)
[2020-02-17] MEDS: CETIRIZINE HCL 10 MG TAB PO SCH (09:47)
[2020-02-17] MEDS: FERROUS GLUCONATE 325 MG TAB PO SCH (09:48)
[2020-02-17] MEDS: RIVASTIGMINE TARTRATE 1.5 MG PO SCH (09:48)
[2020-02-17] MEDS: METHYLCELLULOSE 500 MG PO SCH (09:48)
[2020-02-17] MEDS: COLLAGENASE OINT 30 GM TUBE TOP SCH (09:52)
[2020-02-17] MEDS ORDERED: MAGNESIUM SULFATE PREMIX 2GM 2 GM in PREMIX BAG 1 BAG IVPB ONE (13:03)
--- NOTE | 2020-02-17 13:49 | PN ---
SUPERVISING PHYSICIAN: Job Owen M.D. DATE: 02/17/20 SUBJECTIVE: The patient is lying in bed asleep. She awakens easily. She is very confused. Nursing reported that the packed red blood cells ordered had only been received to be infused this morning, but otherwise nursing reported that she had some shortness of breath with any exertion, although minimal complaints from the patient. OBJECTIVE: VITAL SIGNS: Temperature 98.3, heart rate 94. It has been as high at 101. Blood pressure 102/65, respiratory rate 16, O2 saturation 94% on 2 liters nasal cannula. RESPIRATORY: Diminished breath sounds throughout. CARDIAC: Regular rate and rhythm. At times she is mildly tachycardic. NEUROLOGIC: She is awake and alert. Oriented to person only. LABORATORY: WBCs are 2,600, hemoglobin over the last 2 days has been 6.8. It came up to 7.3 and went down to 6.9 and is now 7.7. Hematocrit is 22.6. Electrolytes are basically within normal limits, except her carbon dioxide is low at 18, creatinine is 1.37, calcium 8.3, magnesium is 1.6. All other labs and films have been reviewed via the EMR. ASSESSMENT: 1. Acute symptomatic anemia, secondary to chronic iron deficiency anemia, requiring transfusion of 2 units of packed red blood cells. 2. Community acquired pneumonia requiring IV antibiotics, exacerbated by #1. 3. Mild electrolyte imbalance with hyponatremia and hypokalemia, resolving. 4. Chronic renal failure due to prerenal azotemia secondary to hypovolemia from anemia, showing improvement. 5. Stage 3 decubitus ulcer to the sacral region, followed by Dr. Mcneill, with no obvious signs of infection at this point. 6. History of hypertension. 7. History of anxiety and depression. 8. Chronic lumbar radiculopathy. 9. Morbid obesity. 10. Type 2 diabetes mellitus on oral therapy. 11. History of chronic venous stasis dermatitis. 12. Osteoporosis previously on Fosamax. PLAN: We will continue present supportive care. Due to the fluctuations in her hemoglobin and hematocrit, we will infuse 1 unit of packed red blood cells. At this point, we may decide to leave the catheter to allow the decubitus on her buttocks to heal. Will reevaluate prior to discharge. I have also sent an assessment for nursing care to [facility] as the [facility] might benefit [facility]. Also, repeat her labs in the morning. I have also given her some magnesium supplementation. Will continue to monitor closely and follow as needed. #[id number] [facility]
[2020-02-17] MEDS ORDERED: MAGNESIUM SULFATE PREMIX 2GM 50 ML IVPB ONE (16:41)
[2020-02-17] MEDS: KCL 20 MEQ/NS 1,000 ML IVS PRN (17:00)
[2020-02-17] MEDS: cefTRIAXone SODIUM 1 GM in SODIUM CHL 0.9% 50ML MIN-BAG+ 50 ML IVPB SCH (20:49)
[2020-02-17] MEDS: AZITHROMYCIN IV 500 MG in SODIUM CHLORIDE 0.9% 250ML 250 ML IVPB SCH (21:49)
[2020-02-17] MEDS: QUEtiapine FUMARATE 100 MG TAB PO SCH (21:50)
[2020-02-17] MEDS: ENOXAPARIN SODIUM 40 MG/0.4 ML SYG SUBCU SCH (21:50)
[2020-02-17] MEDS: ATORVASTATIN 10 MG TAB PO SCH (21:50)
--- NOTE | 2020-02-18 06:49 | RAD ---
CHEST, ONE VIEW XR CLINICAL HISTORY: Pneumonia. COMPARISON: 02/15/2020 TECHNIQUE: AP Chest. FINDINGS: Heart is normal in size. Mild aortic atherosclerosis. Mild pulmonary vascular congestion. Scattered atelectasis. No consolidation or pleural fluid. No pneumothorax. Unremarkable soft tissues and bones. IMPRESSION: 1. Scattered bilateral atelectasis and mild vascular congestion. No evidence of pneumonia. Electronically signed by: Corinne Betancur DO 02/18/2020 6:48 AM CDT
[2020-02-18] MEDS: IPRATROPIUM/ALBUTEROL 3 ML VIAL NEB SCH ×2 (08:06→13:05)
[2020-02-18] MEDS ORDERED: ALENDRONATE SODIUM 70 MG PO SCH (09:00)
[2020-02-18] MEDS: INSULIN LISPRO 100 UNITS/ML PEN SUBCU SCH ×2 (09:03→12:24)
[2020-02-18] MEDS: ALLOPURINOL 100 MG TAB PO SCH (09:51)
[2020-02-18] MEDS: CETIRIZINE HCL 10 MG TAB PO SCH (09:51)
[2020-02-18] MEDS: FERROUS GLUCONATE 325 MG TAB PO SCH (09:51)
[2020-02-18] MEDS: POLYETHYLENE GLYCOL 3350 17 GM PCKT PO SCH (09:51)
[2020-02-18] MEDS: FLUoxetine HCL 20 MG CAP PO SCH (09:51)
[2020-02-18] MEDS: OXYBUTYNIN CL 5 MG TAB PO SCH (09:51)
[2020-02-18] MEDS: LISINOPRIL 10 MG TAB PO SCH (09:51)
[2020-02-18] MEDS: CALCIUM CARBONATE-VITAMIN D 500 MG TAB PO SCH (09:51)
[2020-02-18] MEDS: METHYLCELLULOSE 500 MG PO SCH (09:52)
[2020-02-18] MEDS: RIVASTIGMINE TARTRATE 1.5 MG PO SCH (09:52)
[2020-02-18] MEDS ORDERED: AZITHROMYCIN 250 MG TAB PO ONE ×2 (12:55→15:17)
[2020-02-18 16:49] VITALS: BP 126/68; TEMP 97.8; O2SAT 94
--- NOTE | 2020-02-24 12:01 | DS ---
SUPERVISING PHYSICIAN: Job Owen MD DISCHARGE DIAGNOSIS: 1. Acute symptomatic anemia, secondary to chronic iron deficiency anemia, requiring transfusion of 2 units of packed red blood cells. 2. Community acquired pneumonia requiring IV antibiotics, exacerbated by #1. 3. Mild electrolyte imbalance with hyponatremia and hypokalemia, resolving. 4. Chronic renal failure due to prerenal azotemia secondary to hypovolemia from anemia, showing improvement. 5. Stage 3 decubitus ulcer to the sacral region, followed by Dr. Mcneill, with no obvious signs of infection at this point. 6. History of hypertension. 7. History of anxiety and depression. 8. Chronic lumbar radiculopathy. 9. Morbid obesity. 10. Type 2 diabetes mellitus on oral therapy. 11. History of chronic venous stasis dermatitis. 12. Osteoporosis previously on Fosamax. HISTORY OF PRESENT ILLNESS: This is a 69-year-old female patient that resides at [facility]. She has a past medical history of hypertension, diabetes and dementia. She was brought from [facility] with some noted change in mental status. She is not very verbal and actually gives very little information. Therefore, the most of her history is obtained from the EMR. EMS endorsed that she had been acting a little bit more altered than usual this morning and also possibly running a low-grade fever of 99.5. She was tested for COVID-19 on 02/08/20 and found to be negative. She was tested once again here in the ER and also found to be negative. Her laboratory studies did show she had a significant anemia with hemoglobin 7.5 and hematocrit 22.0. She has a history of severe iron deficiency anemia in the past and has been on iron therapy at some point. Rectal exam was negative for stool occult blood. The patient was hemodynamically stable with a temperature of 98.3, pulse 109, blood pressure 102/44. She was given fluids and blood pressure went up to 131/72, respirations 22. Initial saturation was 88% on room air and improved 94% on oxygen. Additional laboratory studies showed sodium 133, potassium 3.5, creatinine 2.12. She has had elevated creatinine in the past as high as 3.6. Lactic acid normal at 1.4, glucose 143. Liver functions were within normal limits. Troponin less than 0.02. Urinalysis showed just 100 of protein, otherwise within normal limits. Group A strep was negative. She had a Stage 3 decubitus ulcer on her coccyx region. It did not look to be that infected, but could be a source of infection. Given the fact that the patient had a change in mental status and could not provide much information, the ER physician did a CT of the abdomen and pelvis without contrast and per radiologic interpretation there was no acute inflammatory process seen in the abdomen or pelvis. In the lungs, there was note of some scattered ground glass airspace opacities which could be some pulmonary or atypical infection or chronic interstitial lung disease. She was also noted to have aneurysmal dilation of the ascending thoracic aorta measuring 4.3 cm and a mild prominence of the pulmonary arteries which could correlate to arterial hypertension. There was also incidental finding of age-indeterminate compression fracture of T11. Due to her change in mental status and no true findings of infection as well as significantly low H&H, she was placed in observation overnight for initiation of treatment for the decubitus ulcer to her coccyx region and close monitoring of her H&H. HOSPITAL COURSE: She was given fluids for dehydration, started on vancomycin with an initial loading dose and pharmacy continued to dose it per their protocol. She was also on DVT prophylaxis as well as sliding scale insulin per protocol and 1800 ADA diet. Her home medications as pathologic response were restarted. There was no evidence of pneumonia, but she was started on Rocephin along with the vancomycin for treatment of the sacral decubitus ulcer. Dr. Mcneill was consulted to see if there was any reason to debride it. The following day, she did seem to be feeling somewhat better. She had a wet cough and her saturations still remained borderline and required some oxygen. Because she was not showing any signs of infection, she was taken off vancomycin, but was left on Rocephin and azithromycin. Aggressive pulmonary hygiene was started with breathing treatments. It was felt she would benefit from another one to two days of aggressive treatment. She did have a lowered hemoglobin and hematocrit that went down to 7.3 and 21.6, which required a blood transfusion. It took some time to get the blood as she had some incompatibilities and antibodies. She eventually was transfused with 2 units of packed red blood cells. Her condition improved. Due to the delay in getting her blood, her hemoglobin did go up the following day and she was only infused 1 pack of red blood cells. She did have a Parada catheter and it was felt it should be left in to facilitate the healing of the decubitus ulcer. Her vital signs have stabilized and she will be sent back to [facility] in stable condition. LABORATORY: WBCs were on the low side and ran between 2.6 and 4.3. Her hemoglobin dropped as low at 6.8 and on discharge it was 8.8. Hematocrit dropped as low as 20.3 and on discharge was 25.8. Blood sugars ran between 105 and 209. Electrolytes showed stable sodium between 137 and 139. Potassium did drop to 3.4 and she required supplementation. At discharge, it was 3.7. Creatinine was 2.12 on admission and has improved to 1.37. Her baseline creatinine is about 1.5 to 1.6. Calcium stable at 8.4. Magnesium was low initially at 1.6 and required supplementation. It is 1.8. Iron is 24. TIBC 152.6, iron saturation 15.7. Urinalysis was unremarkable. RADIOLOGY: Final chest x-ray shows scattered bilateral atelectasis and mild vascular congestion. No evidence of pneumonia. DISCHARGE PLAN: The patient will be discharged back to [facility] in stable condition. She is in fair condition. She is to resume her previous diet and activity. She is to followup with Dr. Sanford within one to two weeks. In addition to her routine medications, she will also be on Align and cefdinir. [facility] is to do bladder training and discontinuance of Parada catheter when appropriate. The Parada catheter will be followup in place for now to assist with decubitus ulcer healing. [facility] can discontinue when appropriate. The Parada catheter was placed on 02/13/20. She is to return to the hospital or followup with Dr. Sanford for any problems or complications. DISCHARGE MEDICATIONS: 1. Calcium and vitamin D. 2. Lisinopril. 3. Oxybutynin. 4. Cetirizine. 5. Atorvastatin. 6. Fosamax. 7. Multivitamins. 8. Citrucel. 9. Prozac. 10. Allopurinol. 11. Exelon. 12. Polyethylene glycol. 13. Ferrous gluconate. 14. Quetiapine fumarate. 15. Align. 16. Cefdinir. #[id number] [facility]
== END 2020-02-18 16:25 | DRG 811 ==
LOC: ER 11:54 → OBSVTOIN 18:34 → MS 18:34
PROVIDERS: ADMIT Nurse Practitioner Family; ATTEND Nurse Practitioner Acute Care
PROC: 30233N1 Transfusion of Nonautologous Red Blood Cells into Peripheral Vein, Percutaneous Approach (ICD-10-PCS; principal; 2020-02-17)
DX: D62 Acute posthemorrhagic anemia (principal); J18.9 Pneumonia, unspecified organism; E87.1 Hypo-osmolality and hyponatremia; L89.153 Pressure ulcer of sacral region, stage 3; N17.9 Acute kidney failure, unspecified; F03.90 Unspecified dementia, unspecified severity, without behavioral disturbance, psychotic disturbance, mood disturbance, and anxiety; E11.22 Type 2 diabetes mellitus with diabetic chronic kidney disease; I12.9 Hypertensive chronic kidney disease with stage 1 through stage 4 chronic kidney disease, or unspecified chronic kidney disease; Z88.0 Allergy status to penicillin; Z79.82 Long term (current) use of aspirin; Z79.899 Other long term (current) drug therapy; D50.0 Iron deficiency anemia secondary to blood loss (chronic); E87.6 Hypokalemia; E86.1 Hypovolemia; N18.9 Chronic kidney disease, unspecified; E66.01 Morbid (severe) obesity due to excess calories; F41.9 Anxiety disorder, unspecified; F32.9 Major depressive disorder, single episode, unspecified; G89.29 Other chronic pain; M54.16 Radiculopathy, lumbar region; M81.0 Age-related osteoporosis without current pathological fracture; I71.2 Thoracic aortic aneurysm, without rupture; E78.5 Hyperlipidemia, unspecified; I87.2 Venous insufficiency (chronic) (peripheral); Z66 Do not resuscitate; Z68.28 Body mass index [BMI] 28.0-28.9, adult

== ENCOUNTER 2020-02-27 12:04 | Inpatient (IN) | payer MEDICARE, OTHER ==
--- NOTE | 2020-02-27 13:01 | RAD ---
EXAM: X-RAY, Chest (1 View) HISTORY: drowsiness. COMPARISON: Chest x-ray from 02/18/2020. TECHNIQUE: AP view of the chest. FINDINGS: Lungs: Shallow inspiration. Moderate subsegmental atelectasis in the right lung base and mild subsegmental atelectasis in the left lung base. Pleural space: No pneumothorax or pleural effusion is present. Heart: The heart is normal in size. Bones: No acute bone abnormality. IMPRESSION: Moderate subsegmental atelectasis in the right lung base. Electronically signed by: Butch Patrick MD 02/27/2020 1:00 PM CDT
[2020-02-27] MEDS ORDERED: SODIUM CHLORIDE 0.9% 1000ML 1,000 ML IVS ONE ×2 (13:53→18:24)
[2020-02-27] MEDS ORDERED: methylPREDNISolone SODIUM SUC 125 MG/2 ML VIAL IV ONE (13:59)
[2020-02-27] MEDS ORDERED: ZOLEDRONIC ACID INJ 4 MG in SODIUM CHLORIDE 0.9% 100ML 100 ML IVPB ONE (14:03)
--- NOTE | 2020-02-27 14:50 | ED.PDOC ---
History of Present Illness - General Chief Complaint: Neuro Symptoms/Deficits Stated Complaint: altered mental status Time Seen by Provider: 02/27/20 12:05 Source: patient, EMS, residential records Exam Limitations: clinical condition - History of Present Illness Initial Comments: The patient is a 69-year-old female presented emergency room secondary to reportedly mild worsening of her mental status from the residential. Additionally the patient does have mild hematuria in her Parada catheter. Hematuria in the catheter is likely due to the patient messing with it. She apparently had it placed a week or 2 ago and has continued to struggle with it. I have seen the patient several times before. Her mental status does not appear to be significantly different than what I have seen before. She is not reporting any significant discomfort. The patient does have a Parada catheter in place secondary to a chronic decubitus ulcer. The patient was admitted here around 10 to 12 days ago for symptomatic anemia and possibly a mild pneumonia. She was discharged on the less than a week ago I believe. The patient is pleasant and cooperative and answers questions as best she can. No obvious movement issues at this time that I can tell. Timing/Duration: 4-6 hours Severity: mild Improving Factors: nothing Worsening Factors: nothing Associated Symptoms: denies symptoms Allergies/Adverse Reactions: Allergies Penicillin G Allergy (Verified 02/13/20 12:14) Home Medications: Ambulatory Orders Calcium Carbonate-Vitamin D [Calcium 600+D 600-400 mg-Unit] 1 tab PO BID 06/20/14 Lisinopril 10 mg PO DAILY 06/20/14 Atorvastatin Calcium [Lipitor] 10 mg PO DAILY 01/08/16 Cetirizine HCl [Zyrtec] 10 mg PO DAILY 01/08/16 Oxybutynin Chloride 5 mg PO BID 01/08/16 Alendronate Sodium [Fosamax] 70 mg PO WKLY 08/07/17 Fluoxetine HCl [Prozac] 40 mg PO DAILY 07/13/18 Methylcellulose (Laxative) [Citrucel] 500 mg PO DAILY 07/13/18 Multiple Vitamins W/ Minerals [Multivitamin Adults] 1 tab PO DAILY 07/13/18 Allopurinol [Zyloprim] 100 mg PO DAILY 02/14/20 Ferrous Gluconate [Ferate] 27 mg PO DAILY 02/14/20 Polyethylene Glycol 3350 1 pow PO DAILY 02/14/20 QUEtiapine FUMARATE [Seroquel] 400 mg PO BEDTIME 02/14/20 Rivastigmine Tartrate [Exelon] 1.5 mg PO DAILY 02/14/20 Bifidobacterium Infantis [Align] 4 mg PO BID #30 capsule 02/18/20 Cefdinir 300 mg PO BID #8 capsule 02/18/20 Review of Systems - Review of Systems Constitutional: States: malaise EENTM: States: no symptoms reported Respiratory: States: no symptoms reported Cardiology: States: no symptoms reported Gastrointestinal/Abdominal: States: no symptoms reported Genitourinary: States: no symptoms reported Musculoskeletal: States: no symptoms reported Skin: States: see HPI Neurological: States: see HPI, other - The patient feels a little bit drowsy Endocrine: States: no symptoms reported All other Systems: No Change from Baseline Past Medical History (General) - Patient Medical History Hx Seizures: No Hx Stroke: No Hx Dementia: No Hx Asthma: No Hx of COPD: No Hx Cardiac Disorders: No Hx Congestive Heart Failure: No Hx Pacemaker: No Hx Hypertension: Yes Hx Thyroid Disease: No Hx Diabetes: Yes Hx Gastroesophageal Reflux: No Hx Renal Disease: No Hx Cancer: No Hx of HIV: No Hx Hepatitis C: No Hx MRSA: Yes MRSA Source:: Wound - Vaccination History Hx Tetanus, Diphtheria Vaccination: Yes Hx Influenza Vaccination: Yes Hx Pneumococcal Vaccination: Yes - Social History Hx Tobacco Use: No Hx Chewing Tobacco Use: No Hx Alcohol Use: No Hx Substance Use: No Hx Substance Use Treatment: No Hx Depression: No Hx Physical Abuse: No Hx Emotional Abuse: No Hx Suspected Abuse: No - Female History Patient : No Family Medical History - Family History Mother Name: Harriett Byrd Age (years): 86 Living Status: Still Living Hx Family Asthma: No Hx Family Congestive Heart Failure: No Hx Family Hypertension: Yes - Father Hx Family Stroke: No Hx Cardiac Disease: Yes - Father Hx Family Diabetes: Yes - maternal grandmother and father Hx Family Cancer: Yes - mother colon, pt uterine Hx Family;Other: Azheimers Dementia-mom Physical Exam - Physical Exam General Appearance: Comfortable, No apparent distress, Other - The patient is a little bit drowsy Eye Exam: bilateral normal Ears, Nose, Throat: hearing grossly normal, normal ENT inspection Neck: full range of motion, supple Respiratory: lungs clear, normal breath sounds, no respiratory distress, no accessory muscle use Cardiovascular/Chest: normal peripheral pulses, regular rate, rhythm Peripheral Pulses: radial,right: 2+, radial,left: 2+ Gastrointestinal/Abdominal: non tender, soft Rectal Exam: deferred - Parada catheter is in place. The patient does have a stage II to stage III decubitus ulcer that is chronic. 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 nml as tested, alert - Mildly drowsy, normal mood/affect, other - The patient does have chronic dementia Skin Exam: other - Stage II-III sacral decubitus ulcer which is chronic Comments: Vital Signs - 24 hr 02/27/20 02/27/20 02/27/20 12:16 13:00 14:00 Temperature 97.6 F 97.4 F L Pulse Rate [ 84 107 H 99 H left brachial] Respiratory 16 18 20 Rate Blood Pressure 126/85 125/91 122/92 [left brachial] O2 Sat by Pulse 97 94 L 96 Oximetry Progress - Progress Progress: 02/27/20 14:53 The patient is a 69-year-old female presented emergency room secondary to hematuria in her Parada catheter which is likely simply due to the patient messing with the catheter. Urine will be cultured. Hemoglobin and hematocrit are adequate at this point. The patient is taking iron. Pain mild lethargy noted on the patient is likely due to the hypercalcemia. This is likely, as seen in the past due to dehydration and acute renal insufficiency. The patient does take a daily calcium supplement which may not be helping currently. Additionally the patient may not have received her last dose or 2 of alendronate which may be contributing significantly. The patient is receiving a dose of zoledronic acid here to help with the hypercalcemia. Additionally she is r eceiving a liter of IV fluids. She also received 1 dose of IV steroids as well for the same purpose. She will need a dose of Lasix in the near future after she is adequately hydrated in order to help remove calcium. Obviously the patient is being continued on telemetry monitoring. This is obviously a significantly high calcium. If it is not responding to above measures then other sources may need to be looked into. Several send out labs are being sent for work-up additionally. I do not see any other medication sources that would likely be the cause of the hypercalcemia. Obviously a calcium level this high in a patient of her age with her comorbidities does have a fairly high mortality rate. Continue to monitor closely. Vital signs have remained stable. Admit for continued care and monitoring. justin robb [id number] - Results/Orders Results/Orders: Chest x-ray shows bilateral lower lobe atelectasis. EKG shows normal sinus rhythm with occasional PACs at 93 bpm. Normal axis. Questionable old inferior [place]. Likely old lateral [place]. Borderline QT interval. First-degree AV block. Laboratory Tests 02/27/20 02/27/20 02/27/20 12:30 12:30 12:30 WBC 6.1 RBC 3.15 L Hgb 11.0 L Hct 31.1 L MCV 98.7 MCH 34.9 H MCHC 35.4 RDW 17.1 H Plt Count 224 MPV 8.7 Absolute Neuts (auto) 5.10 Absolute Lymphs (auto) 0.20 L Absolute Monos (auto) 0.60 Absolute Eos (auto) 0.10 Absolute Basos (auto) 0.00 Neutrophils % 83.8 H Lymphocytes % 3.6 L Monocytes % 9.5 H Eosinophils % 2.5 Basophils % 0.6 PT 11.1 H INR 1.12 PTT (SP) 22.7 Sodium 133 L Potassium 3.5 L Chloride 94 L Carbon Dioxide 28 Anion Gap 14.5 BUN 24 H Creatinine 2.48 H BUN/Creatinine Ratio 9.7 L Random Glucose 104 Serum Osmolality 270.7 L Lactic Acid Calcium 15.4 H* Phosphorus Total Bilirubin 0.9 AST 29 ALT 18 Alkaline Phosphatase 83 Creatine Kinase 75 CK-MB (CK-2) 2.4 CK-MB (CK-2) % Not Reportable Troponin I 0.03 B-Natriuretic Peptide 39.2 Serum Total Protein 7.4 Albumin 3.4 Globulin 4.0 H Albumin/Globulin Ratio 0.9 L TSH 0.97 Urine Color Urine Appearance Urine pH Ur Specific Bruni Urine Protein Urine Glucose (UA) Urine Ketones Urine Blood Urine Nitrite Urine Bilirubin Urine Urobilinogen Ur Leukocyte Esterase Urine RBC Urine WBC Ur Epithelial Cells Urine Bacteria 02/27/20 02/27/20 02/27/20 12:30 13:13 14:05 WBC RBC Hgb Hct MCV MCH MCHC RDW Plt Count MPV Absolute Neuts (auto) Absolute Lymphs (auto) Absolute Monos (auto) Absolute Eos (auto) Absolute Basos (auto) Neutrophils % Lymphocytes % Monocytes % Eosinophils % Basophils % PT INR PTT (SP) Sodium Potassium Chloride Carbon Dioxide Anion Gap BUN Creatinine BUN/Creatinine Ratio Random Glucose Serum Osmolality Lactic Acid 1.0 Calcium Phosphorus 3.9 Total Bilirubin AST ALT Alkaline Phosphatase Creatine Kinase CK-MB (CK-2) CK-MB (CK-2) % Troponin I B-Natriuretic Peptide Serum Total Protein Albumin Globulin Albumin/Globulin Ratio TSH Urine Color Yellow Urine Appearance Cloudy Urine pH 7.0 Ur Specific Bruni 1.015 Urine Protein 100 H Urine Glucose (UA) Negative Urine Ketones Negative Urine Blood Large H Urine Nitrite Negative Urine Bilirubin Small H Urine Urobilinogen 0.2 Ur Leukocyte Esterase Small H Urine RBC Tntc H Urine WBC 3-5 H Ur Epithelial Cells 0 Urine Bacteria Rare 02/27/20 14:25 WBC RBC Hgb Hct MCV MCH MCHC RDW Plt Count MPV Absolute Neuts (auto) Absolute Lymphs (auto) Absolute Monos (auto) Absolute Eos (auto) Absolute Basos (auto) Neutrophils % Lymphocytes % Monocytes % Eosinophils % Basophils % PT INR PTT (SP) Sodium Potassium Chloride Carbon Dioxide Anion Gap BUN Creatinine BUN/Creatinine Ratio Random Glucose Serum Osmolality Lactic Acid Calcium 15.5 H* Phosphorus Total Bilirubin AST ALT Alkaline Phosphatase Creatine Kinase CK-MB (CK-2) CK-MB (CK-2) % Troponin I B-Natriuretic Peptide Serum Total Protein Albumin Globulin Albumin/Globulin Ratio TSH Urine Color Urine Appearance Urine pH Ur Specific Bruni Urine Protein Urine Glucose (UA) Urine Ketones Urine Blood Urine Nitrite Urine Bilirubin Urine Urobilinogen Ur Leukocyte Esterase Urine RBC Urine WBC Ur Epithelial Cells Urine Bacteria Departure - Departure Clinical Impression: Hypercalcemia, Somnolence Acute renal failure Qualifiers: Acute renal failure type: unspecified Qualified Code(s): N17.9 - Acute kidney failure, unspecified Hematuria Qualifiers: Hematuria type: gross Qualified Code(s): R31.0 - Gross hematuria Disposition: Admit Patient Condition: Fair Departure Forms: ED Discharge - Pt. Copy, Patient Portal Self Enrollment Referrals: RON SCHROEDER MD [Primary Care Provider] - 1-2 Weeks Home Medications: Ambulatory Orders Calcium Carbonate-Vitamin D [Calcium 600+D 600-400 mg-Unit] 1 tab PO BID 06/20/14 Lisinopril 10 mg PO DAILY 06/20/14 Atorvastatin Calcium [Lipitor] 10 mg PO DAILY 01/08/16 Cetirizine HCl [Zyrtec] 10 mg PO DAILY 01/08/16 Oxybutynin Chloride 5 mg PO BID 01/08/16 Alendronate Sodium [Fosamax] 70 mg PO WKLY 08/07/17 Fluoxetine HCl [Prozac] 40 mg PO DAILY 07/13/18 Methylcellulose (Laxative) [Citrucel] 500 mg PO DAILY 07/13/18 Multiple Vitamins W/ Minerals [Multivitamin Adults] 1 tab PO DAILY 07/13/18 Allopurinol [Zyloprim] 100 mg PO DAILY 02/14/20 Ferrous Gluconate [Ferate] 27 mg PO DAILY 02/14/20 Polyethylene Glycol 3350 1 pow PO DAILY 02/14/20 QUEtiapine FUMARATE [Seroquel] 400 mg PO BEDTIME 02/14/20 Rivastigmine Tartrate [Exelon] 1.5 mg PO DAILY 02/14/20 Bifidobacterium Infantis [Align] 4 mg PO BID #30 capsule 02/18/20 Cefdinir 300 mg PO BID #8 capsule 02/18/20 Decision To Admit - Decistion To Admit Decision to Admit Reason: Medical Nature Decision to Admit Date: 02/27/20 Decision to Admit Time: 14:57
--- NOTE | 2020-02-27 15:32 | HP ---
SUPERVISING PHYSICIAN: Master Alberts MD CHIEF COMPLAINT: Blood in her urine. HISTORY OF PRESENT ILLNESS: This is a 69-year-old female patient who resides at [facility]. She was actually in the hospital about 1-1/2 weeks ago for pneumonia and had a Parada catheter placed at that time. She was sent to the assisted living facility with the catheter in hopes that they would be able to remove it. Per reports from [facility], the patient had been messing with it and there was blood in her urine. She has also had some changes in her mental status. She does have significant dementia, but it had seemed to worsen over the last few days. There was a small amount of blood in the catheter bag, but initially her vital signs showed temperature 97.6, heart rate 84, blood pressure 128/85, respiratory rate 16, O2 saturation 97% on room air. Labs were done and her WBCs were 6,100, hemoglobin 11, hematocrit 31.1 with a left shift on her differential. She did receive 2 units of blood at her last hospital admission. Sodium 133, potassium 3.5, chloride 94, carbon dioxide 28, BUN 24, creatinine 2.48. Her baseline creatinine is probably around 1.5. Serum osmolality 270.7, lactic acid 1, but her calcium was 15.2. Phosphorous 3.9. Liver enzymes were within normal limits. Urinalysis showed 100 of urine protein, large amount of urine blood, small amount of urine bilirubin, small amount of urine leukocyte esterase and too numerous to count urine RBCs and 3 to 5 urine WBCs. She was given generous fluids in the ER as well as give some zoledronic acid. A repeat calcium showed a slight increase to 15.5. The patient is a DNR. Blood cultures were done. A urine culture was also completed. A COVID panel was also done and it was negative. Her chest x-ray showed moderate subsegmental atelectasis in the right lung. I was called for hospital admission. PAST MEDICAL HISTORY: 1. Hypertension. 2. Hyperlipidemia. 3. Anxiety and depression. 4. Lumbar radiculopathy. 5. Morbid obesity. 6. Type 2 diabetes mellitus. 7. Chronic venous stasis dermatitis. 8. Osteoporosis. 9. Stage 2 to 3 decubitus ulcer on the coccyx. PAST SURGICAL HISTORY: 1. Cholecystectomy. 2. Hysterectomy. 3. Dilatation and curettage. 4. Colonoscopy. MEDICATIONS: Per the EMR and awaiting verification. She was on some bisphosphonate and I am not sure that she has been taking those at this time. ALLERGIES: PENICILLIN. FAMILY HISTORY: Positive for colon cancer. SOCIAL HISTORY: The patient is a resident at [facility]. She is single. She has no history of tobacco, ETOH or illicit drug use. REVIEW OF SYSTEMS: Unable to fully assess due to the patient's mental status. PHYSICAL EXAMINATION: VITAL SIGNS: Temperature 97.6, heart rate 105 but it is going up to 125, blood pressure 145/92, respiratory rate 18, O2 saturation 96% on room air. GENERAL: This is a 69-year-old female patient who is lying in her hospital bed. She is in no acute distress. She is minimally verbal and she does answer yes/no to some simple questioning. HEENT: Normocephalic, atraumatic. Oropharynx is clear. NECK: Supple without mass. Nontender. RESPIRATORY: Somewhat diminished, but otherwise clear to auscultation. CARDIOVASCULAR: Regular rate and rhythm. At times, it is tachycardic. It does show sinus rhythm and sinus tachycardia with occasional PVCs on the residential monitor. GASTROINTESTINAL: Abdomen is soft, nondistended, nontender. Bowel sounds are positive. BACK: Deferred. It was reported that she does have a stage 3 decubitus ulcer on her coccyx that has been there. She did have it the last time she was in the hospital. EXTREMITIES: No cyanosis, clubbing or edema. NEUROLOGIC: She is minimally conversive, but opens her eyes to command and answers some simple yes/no questions appropriately. SKIN: Warm and dry. LABORATORY: Labs and films are as per history of present illness. IMPRESSION: 1. Severe hypercalcemia. 2. Acute on chronic renal failure. 3. Altered mental status. 4. Urinary tract infection. 5. Stage 3 decubitus ulcer on the buttocks that is chronic. 6. High risk for COVID-19. Her results were negative. 7. Hypertension. 8. Anxiety and depression. 9. Diabetes mellitus, type 2. PLAN: The patient has been admitted to the hospital. She will get generous fluids overnight. I had planned on giving her some subcutaneous calcitonin, but it is not available at our facility, so she will get 9 mg of betamethasone as recommended by Pharmacy. I will repeat her calcium at 10 PM as well as a magnesium. We will try to keep her urine output between 150 and [address] Medina may need to be consulted tomorrow if her calcium does not come down appropriately. I have ordered Rocephin for urinary tract infection. She will have labs for in the morning. She will have Lovenox for DVT prophylaxis, a proton pump inhibitor for ulcer prophylaxis. I will restart her home medications as soon as they are verified. She will be on sliding scale insulin per protocol. We will continue to monitor the patient closely and follow as needed. #[id number] [facility]
[2020-02-27] MEDS ORDERED: ACETAMINOPHEN 325 MG TAB PO PRN (18:27)
[2020-02-27] MEDS ORDERED: ONDANSETRON INJ 4 MG/2 ML VIAL IV PRN (18:27)
[2020-02-27] MEDS ORDERED: SODIUM CHLORIDE 0.9% (FLUSH) 10 ML SYG IV PRN (18:27)
[2020-02-27] MEDS ORDERED: IV SET AND CAP CHANGE INJ INJ SCH (18:30)
[2020-02-27] MEDS ORDERED: QUEtiapine FUMARATE 100 MG TAB ONE (19:34)
[2020-02-27] MEDS ORDERED: BETAMETHASONE ACETATE/BETAMETH 6 MG/ML VIAL IM ONE ×2 (20:03→21:10)
[2020-02-27] MEDS ORDERED: METOPROLOL TARTRATE INJ 5 MG/5 ML VIAL IV PRN (20:04)
[2020-02-27] MEDS: SODIUM CHLORIDE 0.9% (FLUSH) 10 ML SYG IV SCH (20:51)
[2020-02-27] MEDS: QUEtiapine FUMARATE 25 MG TAB PO SCH (20:52)
[2020-02-27] MEDS ORDERED: MAGNESIUM SULFATE PREMIX 2GM 2 GM in PREMIX BAG 1 BAG IVPB ONE (22:31)
[2020-02-27] MEDS ORDERED: MAGNESIUM SULFATE PREMIX 2GM 50 ML IVPB ONE (22:53)
[2020-02-27] MEDS ORDERED: KCL 20MEQ/WATER FOR INJ 100ML 20 MEQ in PREMIX BAG 1 BAG IVPB ONE (23:56)
[2020-02-27] MEDS ORDERED: DEXTROSE 50% 25 GM/50 ML SYG IV PRN (23:57)
[2020-02-27] MEDS ORDERED: GLUCAGON INJ 1 MG VIAL SUBCU PRN (23:57)
[2020-02-28] MEDS ORDERED: SODIUM CHL 0.9% 50ML MIN-BAG+ 50 ML IVPB ONE (00:20)
[2020-02-28] MEDS ORDERED: cefTRIAXone SODIUM 1 GM VIAL ONE (00:20)
[2020-02-28] MEDS ORDERED: KCL 20MEQ/WATER FOR INJ 100ML 100 ML IVPB ONE (00:20)
[2020-02-28] MEDS: cefTRIAXone SODIUM 1 GM in SODIUM CHL 0.9% 50ML MIN-BAG+ 50 ML IVPB SCH (00:21)
[2020-02-28] MEDS: SODIUM CHLORIDE 0.9% 1000ML 1,000 ML IVS PRN ×2 (00:22→16:59)
[2020-02-28] MEDS: INSULIN LISPRO 100 UNITS/ML PEN SUBCU SCH ×4 (07:33→20:51)
[2020-02-28] MEDS: RIVASTIGMINE TARTRATE 1.5 MG PO SCH (08:56)
[2020-02-28] MEDS: ALLOPURINOL 100 MG TAB PO SCH (08:58)
[2020-02-28] MEDS: LISINOPRIL 10 MG TAB PO SCH (08:58)
[2020-02-28] MEDS: FLUoxetine HCL 20 MG CAP PO SCH (08:58)
[2020-02-28] MEDS: CETIRIZINE HCL 10 MG TAB PO SCH (08:58)
[2020-02-28] MEDS: SODIUM CHLORIDE 0.9% (FLUSH) 10 ML SYG IV SCH ×2 (08:59→20:53)
--- NOTE | 2020-02-28 20:01 | PN ---
SUPERVISING PHYSICIAN: Abraham Sanford M.D. DATE: 02/28/20 SUBJECTIVE: The patient is resting comfortably. He does not appear to be in any acute distress. She is not having any changes neurologically. Seems to be at her baseline levels. She did refuse to eat breakfast this morning but did take supplementation. She remains afebrile. OBJECTIVE: VITAL SIGNS: Temperature 97.8, pulse 81, blood pressure 111/63, respirations 18, satting 98% on room air. GENERAL: The patient is resting comfortably. Does not appear to be in any distress. She is alert. CHEST: Lung sounds were clear to auscultation bilaterally. HEART: Regular rate and rhythm. ABDOMEN: Soft, non-tender. Positive bowel sounds. EXTREMITIES: Without any edema. NEUROLOGIC: She appears to be at her baseline levels. She will answer yes or no questions and interact without any obvious neurological focal motor deficits. LABORATORY: This morning her chemistry showed sodium of 133 with creatinine 2.35. Blood sugars ranged between 133 and 157. Calcium is down to 13.1, magnesium 2.1. Liver functions are all within normal limits. MICROBIOLOGY: Blood cultures are negative at 24 hours. Urine culture is pending, shows no growth at 24 hours. RADIOLOGY: No additional radiographic studies. ASSESSMENT: 1. Severe hypercalcemia, etiology uncertain, but possibly multifactorial from chronic inactivity, previous poor medical compliance with bisphosphate regimen exacerbated by dehydration. 2. Acute on chronic renal failure exacerbated by some dehydration, more likely prerenal azotemia. 3. Altered mental status showing improvement with treatment. 4. Urinary tract infection with cultures pending. 5. Chronic stage 3 decubitus with no signs of infection. 6. COVID-19 testing negative. 7. Chronic hypertension, stable. 8. Anxiety and depression. 9. Diabetes mellitus, type 2 showing to be stable. PLAN: Will continue with fluids and monitoring her blood sugars as well as calcium levels daily. They talked to Dr. Sanford regarding the patient's case and at this point will continue this plan of care and reassess in the morning. I believe she got her bisphosphate injection this past Friday which hopefully will help decrease some of the calcium back to more normal levels. Until we can transition her back to outpatient management will continue to monitor closely. #[id number] [facility]
[2020-02-28] MEDS ORDERED: QUEtiapine FUMARATE 100 MG TAB ONE (20:37)
[2020-02-28] MEDS: QUEtiapine FUMARATE 25 MG TAB PO SCH (20:53)
[2020-02-28] MEDS ORDERED: ATORVASTATIN 10 MG TAB PO SCH (21:00)
[2020-02-29] MEDS: cefTRIAXone SODIUM 1 GM in SODIUM CHL 0.9% 50ML MIN-BAG+ 50 ML IVPB SCH (01:09)
[2020-02-29] MEDS: SODIUM CHLORIDE 0.9% 1000ML 1,000 ML IVS PRN ×2 (06:36)
[2020-02-29] MEDS: INSULIN LISPRO 100 UNITS/ML PEN SUBCU SCH ×2 (07:26→12:17)
[2020-02-29] MEDS: FLUoxetine HCL 20 MG CAP PO SCH (08:39)
[2020-02-29] MEDS: SODIUM CHLORIDE 0.9% (FLUSH) 10 ML SYG IV SCH (08:40)
[2020-02-29] MEDS: CETIRIZINE HCL 10 MG TAB PO SCH (08:40)
[2020-02-29] MEDS: LISINOPRIL 10 MG TAB PO SCH (08:40)
[2020-02-29] MEDS: RIVASTIGMINE TARTRATE 1.5 MG PO SCH (08:40)
[2020-02-29] MEDS: ALLOPURINOL 100 MG TAB PO SCH (08:40)
[2020-02-29] MEDS ORDERED: ENOXAPARIN SODIUM 30 MG/0.3 ML SYG SUBCU ONE (10:59)
[2020-02-29 13:29] VITALS: BP 120/68; TEMP 97.8; O2SAT 95
--- NOTE | 2020-03-01 09:18 | DS ---
SUPERVISING PHYSICIAN: Garo Sanford MD ADMISSION DIAGNOSIS: 1. Severe hypercalcemia. 2. Acute on chronic renal failure. 3. Altered mental status. 4. Urinary tract infection. 5. Stage 3 decubitus ulcer on the buttocks that is chronic. 6. High risk for COVID-19. Her results were negative. 7. Hypertension. 8. Anxiety and depression. 9. Diabetes mellitus, type 2. DISCHARGE DIAGNOSIS: 1. Severe hypercalcemia, etiology unknown, probably multifactorial from chronic inactivity, noncompliance with bisphosphate regimen and exacerbated by dehydration, but resolved with treatment. 2. Acute on chronic renal failure exacerbated by dehydration with renal function at baseline levels prior to discharge. 3. Altered mental status, secondary to #1 with the patient had baseline mental level prior to discharge. 4. Microhematuria secondary to chronic urinary Parada catheter without any signs of urinary tract infection with the patient showing no growth on cultures. 5. Chronic stage 3 decubitus with no signs of infection. 6. COVID-19 testing negative. 7. Chronic hypertension, stable. 8. Anxiety and depression. 9. Diabetes mellitus, type 2, stable. REASON FOR HOSPITALIZATION: This is a 69-year-old female patient who resides at [facility]. She was actually in the hospital about 1-1/2 weeks ago for pneumonia and had a Parada catheter placed at that time. She was sent to the assisted living facility with the catheter in hopes that they would be able to remove it. Per reports from the [facility], the patient had been messing with it and there was blood in her urine. She has also had some changes in her mental status. She does have significant dementia, but it had seemed to worsen over the last few days. There was a small amount of blood in the catheter bag, but initially her vital signs showed temperature 97.6, heart rate 84, blood pressure 128/85, respiratory rate 16, O2 saturation 97% on room air. Labs were done and her WBCs were 6,100, hemoglobin 11, hematocrit 31.1 with a left shift on her differential. She did receive 2 units of blood at her last hospital admission. Sodium 133, potassium 3.5, chloride 94, carbon dioxide 28, BUN 24, creatinine 2.48. Her baseline creatinine is probably around 1.5. Serum osmolality 270.7, lactic acid 1, but her calcium was 15.2. Phosphorous 3.9. Liver enzymes were within normal limits. Urinalysis showed 100 of urine protein, large amount of urine blood, small amount of urine bilirubin, small amount of urine leukocyte esterase and too numerous to count urine RBCs and 3 to 5 urine WBCs. She was given generous fluids in the ER as well as give some zoledronic acid. A repeat calcium showed a slight increase to 15.5. The patient is a DNR. Blood cultures were done. A urine culture was also completed. A COVID panel was also done and it was negative. Her chest x-ray showed moderate subsegmental atelectasis in the right lung. I was called for hospital admission. LABORATORY: White count on discharge was 5,100, hemoglobin 9.3, hematocrit 26.8, platelet count 182,000. Differential did show a slightly left shift. Chemistries showed calcium had normalized from 15.4 to 11.5 at discharge. Electrolytes showed just a mild hypokalemia at 3.1. Creatinine was at near baseline level at 2.32. Blood sugars stable between 107 and 160. MICROBIOLOGY: Blood cultures showed no growth at 48 hours. Urine culture showed no growth at 48 hours. Her respiratory panel was negative for all viral and bacterial targets including COVID. RADIOLOGY: She had a chest x-ray in the Emergency Room and per radiologic interpretation showed moderate subsegmental atelectasis of the right lung base. HOSPITAL COURSE: Ms. Byrd was admitted for hypercalcemia and was treated with fluids, steroids and showed good response to treatment with her calcium normalizing prior to discharge. She did have some hematuria with concerns for possible urinary tract infection, heart, no growth was seen on cultures and it was felt this was due to do catheter in place that she has chronically. She was treated with antibiotics while in the hospital for possible urinary tract infection. She did show good clinical response to treatment. On date of discharge, her vital signs were stable with temperature 97.8, pulse 70, blood pressure 120/68, respirations 16, oxygen saturation 95% on room air. She was at baseline mental status on discharge back to [facility]. There was discussion on leaving the catheter in as she does have [facility] and the decision was to leave it in to prevent excoriation and help with healing of the decubitus ulcer on her sacral area and to allow home health to exchange the catheter 48 hours after discharge. PLAN: Ms. Byrd was discharged on 02/29/[address] Sanford as well as to continue with [facility]. Instructions were to discharge back to [facility] with Parada catheter in place and have [facility] exchange the catheter within 24 to 48 hours of discharge. She was continued on antibiotics including Ceftin due to the fact that she does have a chronic indwelling Parada catheter although there were no signs of infection. She is to resume her previous home medications, her activity level as well as her diet. PRESCRIPTIONS ON DISCHARGE: 1. Cefdinir 500 mg q.12h., #10, no refills. 2. Glucerna nutritional supplements, 8 ounces with each meal and at bedtime for 30 days, #90, no refills. The patient will need a Parada catheter exchange with orders written for [facility], but we will need to make sure this is done to prevent any unintentional infectious process as well as instructions were given to [facility] to followup with Dr. Sanford as well as continue treatment for the underlying sacral decubitus ulcer. CONDITION ON DISCHARGE: Stable and improved. DISPOSITION: The patient was discharged and transferred back to [facility]. #[id number] [facility]
== END 2020-02-29 15:35 | disposition home health service (06) | DRG 640 ==
LOC: ER 12:04 → OBSVTOIN 15:30 → MS 15:30
PROVIDERS: ADMIT Nurse Practitioner Acute Care; ATTEND Nurse Practitioner Family
DX: E83.52 Hypercalcemia (principal); L89.153 Pressure ulcer of sacral region, stage 3; N17.9 Acute kidney failure, unspecified; T83.83XA Hemorrhage due to genitourinary prosthetic devices, implants and grafts, initial encounter; E86.0 Dehydration; N18.9 Chronic kidney disease, unspecified; R31.21 Asymptomatic microscopic hematuria; Z20.828 Contact with and (suspected) exposure to other viral communicable diseases; I12.9 Hypertensive chronic kidney disease with stage 1 through stage 4 chronic kidney disease, or unspecified chronic kidney disease; E11.22 Type 2 diabetes mellitus with diabetic chronic kidney disease; F41.9 Anxiety disorder, unspecified; F32.9 Major depressive disorder, single episode, unspecified; F03.90 Unspecified dementia, unspecified severity, without behavioral disturbance, psychotic disturbance, mood disturbance, and anxiety; E87.6 Hypokalemia; E78.5 Hyperlipidemia, unspecified; M81.0 Age-related osteoporosis without current pathological fracture; Y84.6 Urinary catheterization as the cause of abnormal reaction of the patient, or of later complication, without mention of misadventure at the time of the procedure; Z66 Do not resuscitate; Z91.14 Patient's other noncompliance with medication regimen; Z90.49 Acquired absence of other specified parts of digestive tract; Z90.710 Acquired absence of both cervix and uterus; Z88.0 Allergy status to penicillin; Z87.01 Personal history of pneumonia (recurrent); Z79.83 Long term (current) use of bisphosphonates; Z83.3 Family history of diabetes mellitus; Z82.49 Family history of ischemic heart disease and other diseases of the circulatory system; R40.2143 Coma scale, eyes open, spontaneous, at hospital admission; R40.2363 Coma scale, best motor response, obeys commands, at hospital admission; R40.2243 Coma scale, best verbal response, confused conversation, at hospital admission

== ENCOUNTER → 2020-03-08 | Outpatient (CLI) | payer MEDICARE, OTHER | LOC: YCHH 10:11 | PROVIDERS: ATTEND Family Medicine | DX: E83.52 Hypercalcemia (principal); N18.9 Chronic kidney disease, unspecified ==